=== PATIENT | male | born 1945 | race Caucasian/White ===

== ENCOUNTER → 2017-12-10 12:59 | Outpatient (CLI) | payer MEDICARE, SELFPAY ==
[2017-01-28 09:50] VITALS: BMI 29.3
[2017-11-07 14:19] VITALS: BP 144/70
--- NOTE | 2017-12-10 13:01 | CT_ITS ---
STUDY: CT CHEST WITHOUT CONTRAST REASON FOR EXAM: Male, 72 years old. Dyspnea. RADIATION DOSAGE (If Supplied By Facility): CTDIvol = ( 12.19 ) mGy, DLP = ( 414.11 ) mGycm TECHNIQUE: Transaxial imaging was performed without the administration of intravenous contrast material. Multiplanar coronal and sagittal images were reformatted. Individualized dose optimization techniques were used for this CT. COMPARISON: Comparison is made with prior examination dated May 09, 2017. FINDINGS: Stable increased markings in the left lung apex suggestive of scarring. Stable appearance of the spiculated soft tissue density in the posterior aspect of the left upper lobe adjacent to the suprahilar region with areas of bronchiectasis. This is in keeping with scarring. 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 Stable appearance of the soft tissue density with coarse calcifications in the right hilum and right infrahilar region. Stable increased markings in the right lower lobe suggestive of a mild degree of scarring. There is a new 1.1 cm slightly irregular nodule in the right lower lobe as seen on axial image 73. There are calcifications of the coronary arteries. Stable calcified mediastinal lymph nodes. Stable calcified bilateral hilar lymph nodes more prominent on the right side. Normal unenhanced pulmonary arteries. Normal aorta arch and descending thoracic aorta. There are multi-level degenerative changes of the thoracic spine. Hiatal hernia. CT/Chest without Contrast IMPRESSION: Stable examination except for a new 1.1 cm slightly irregular nodule in the right lower lobe as seen on axial image 73. Electronically Signed: Jered Parrish MD at 16:00 EST Tel [phone], Service support ,
--- NOTE | 2017-12-11 15:36 | PFTCOMP ---
COMPLETE PULMONARY FUNCTION TEST INTERPRETATION Brief HPI: Patient is a 72 year old male, currently under the care of myself, who presents to [facility] for complete pulmonary function tests secondary to diagnosis of abnormal CT. Respiratory therapist reports good effort and reproducible results. Interpretation: Forced expiration spirometry shows a moderately-severe large airways obstructive ventilatory defect with an FEV1 of 55 % predicted. There is no significant bronchodilator response by ATS criteria. Spirograms are of good quality and plateau slowly, indicating slowly emptying areas of the lungs. The respiratory flow volume loop shows decreased expiratory flow rates at all lung volumes consistent with airway obstruction. Lung volumes by body plethysmography show a normal total lung capacity at 5.29 L, 85 % predicted. All other lung volumes are within normal limits. Diffusion capacity by carbon monoxide is normal at 76 % predicted. The airway resistance is elevated. Compared to previous pulmonary function tests from 05/09/2017, there has been a significant change in total lung capacity and residual volume. Impression: Irreversible moderately severe obstructive ventilatory defect with worsening of lung volumes compared to previous study.
--- NOTE | 2017-12-11 15:39 | PFTCOMP_ITS ---
COMPLETE PULMONARY FUNCTION TEST INTERPRETATION Brief HPI: Patient is a 72 year old male, currently under the care of myself, who presents to [facility] for complete pulmonary function tests secondary to diagnosis of abnormal CT. Respiratory therapist reports good effort and reproducible results. Interpretation: Forced expiration spirometry shows a moderately-severe large airways obstructive ventilatory defect with an FEV1 of 55 % predicted. There is no significant bronchodilator response by ATS criteria. Spirograms are of good quality and plateau slowly, indicating slowly emptying areas of the lungs. The respiratory flow volume loop shows decreased expiratory flow rates at all lung volumes consistent with airway obstruction. Lung volumes by body plethysmography show a normal total lung capacity at 5.29 L , 85 % predicted. All other lung volumes are within normal limits. Diffusion capacity by carbon monoxide is normal at 76 % predicted. The airway resistance is elevated. Compared to previous pulmonary function tests from 05/09/2017, there has been a significant change in total lung capacity and residual volume. Impression: Irreversible moderately severe obstructive ventilatory defect with worsening of lung volumes compared to previous study.
== END ==
PROVIDERS: Family Provider Family Medicine; PCP Family Medicine; Visit Provider Nurse Practitioner Acute Care
DX: R91.8 Other nonspecific abnormal finding of lung field (principal); D86.0 Sarcoidosis of lung
CPT/HCPCS: 71250; 94060; 94726; 94729

== ENCOUNTER → 2018-06-10 07:15 | Outpatient (CLI) | payer MEDICARE, SELFPAY ==
[2017-01-28 09:50] VITALS: BMI 29.3
--- NOTE | 2018-06-10 07:17 | CT_ITS ---
STUDY: CT CHEST WITHOUT CONTRAST REASON FOR EXAM: Male, 72 years old. SARCOIDOSIS, NODULE RADIATION DOSAGE (If Supplied By Facility): CTDIvol = ( 12.59 ) mGy, DLP = ( 475.17 ) mGycm TECHNIQUE: Transaxial imaging was performed without the administration of intravenous contrast material. Individualized dose optimization techniques were used for this CT. COMPARISON: 01/07/2018 FINDINGS: The previously described right lower lobe nodule is smaller, now measuring 8 mm, down from 11 mm. There is stable right perihilar atelectasis and scarring extending into the right lower lobe. There is stable left upper lobe perihilar scarring and atelectasis. No new nodule is seen. No pleural effusion. Normal heart and pericardium. There are multiple stable calcified mediastinal and bihilar lymph nodes.. Normal unenhanced pulmonary arteries. Normal aorta arch and descending thoracic aorta. There are multi-level degenerative changes of the thoracic spine. The hiatal hernia is slightly smaller. Again seen is a right renal hypodensity, probably a cyst. CT/Chest without Contrast IMPRESSION: The previously described right lower lobe nodule is smaller. The hiatal hernia is slightly smaller. Other stable findings. Electronically Signed: Starr Harrison MD at 9:40 EDT , Service support ,
[2018-06-10 08:43] VITALS: PULSE 63; PULSE 75; PULSE 76; PULSE 78; O2SAT 95; O2SAT 97; O2SAT 98
--- NOTE | 2018-06-10 15:20 | WT_ITS ---
PSN 6 Minute Walk Test - 6 Minute Walk Test 6 Minute Walk Test: 6 Minute Walk Test PSN:6-Minute Walk Test Start: 06/10/18 08: 09 Freq: Status: Active Protocol: [id number].6MINW Document 06/10/18 08:43 SMB (Rec: 06/10/18 08:46 SMB [id number]) 6 Minute Walk Test Date Performed 06/10/18 Time Performed 08:25 Height 5 ft 9 in Weight: 83.007 kg Weight in Pounds 183.[address]: Jennifer Azevedo Assistive device used: None Pre-test Oxygen Delivery Method Room Air Pulse Ox (%) 98 Pulse Rate (60-100 beats/min) 63 1st minute Oxygen Delivery Method Room Air Pulse Ox (%) 98 Pulse Rate (60-100 beats/min) 75 2nd minute Oxygen Delivery Method Room Air Pulse Ox (%) 95 Pulse Rate (60-100 beats/min) 76 3rd minute Oxygen Delivery Method Room Air Pulse Ox (%) 98 Pulse Rate (60-100 beats/min) 75 4th minute Oxygen Delivery Method Room Air Pulse Ox (%) 98 Pulse Rate (60-100 beats/min) 76 5th minute Oxygen Delivery Method Room Air Pulse Ox (%) 97 Pulse Rate (60-100 beats/min) 76 6th minute Oxygen Delivery Method Room Air Pulse Ox (%) 98 Pulse Rate (60-100 beats/min) 78 Post-test Oxygen Delivery Method Room Air Pulse Ox (%) 98 Pulse Rate (60-100 beats/min) 76 Dyspnea Dhara Scale (0-10) 0.5 Exertion Dhara Scale (6-20) 12 Full Laps Walked 18 Partial Lap, Number of Tiles Walked 0 Total Distance Walked (ft) 1062 - Interpretation Interpretation: The patient was able to ambulate 1062 feet over the course of 6 minutes on room air with no assistive devices or breaks. The patient experienced no significant desaturation or tachycardia during testing. These findings are consistent with a normal exercise oximetry. - Recommendations Recommendations: No supplemental oxygen was indicated by this testing.
--- NOTE | 2018-06-10 15:33 | PFTCOMP ---
COMPLETE PULMONARY FUNCTION TEST INTERPRETATION Brief HPI: Patient is a 72 year old male, currently under the care of Jennifer Azevedo, who presents to [facility] for complete pulmonary function tests secondary to diagnosis of sarcoidosis. Respiratory therapist reports good effort and reproducible results. Interpretation: Forced expiration spirometry shows no moderate large airways obstructive ventilatory defect with an FEV1 of 60% predicted. There is no significant bronchodilator response by ATS criteria. Spirograms are of good quality and plateau slowly, indicating slowly emptying areas of the lungs. The respiratory flow volume loop shows decreased expiratory flow rates at high lung volumes consistent with small airways obstruction. Lung volumes by body plethysmography show a normal total lung capacity at 6.55 L, 105% predicted. All other lung volumes are within normal limits. Diffusion capacity by carbon monoxide is normal at 82% predicted. The airway resistance is elevated. Compared to previous pulmonary function tests from December 10, 2017, there has been a significant improvement in FEV1 and TLC by 13% and 24% respectively. Impression: Irreversible moderate large airways obstructive ventilatory defect with significant improvement compared to previous testing.
--- NOTE | 2018-06-10 15:36 | PFTCOMP_ITS ---
COMPLETE PULMONARY FUNCTION TEST INTERPRETATION Brief HPI: Patient is a 72 year old male, currently under the care of Jennifer Azevedo, who presents to [facility] for complete pulmonary function tests secondary to diagnosis of sarcoidosis. Respiratory therapist reports good effort and reproducible results. Interpretation: Forced expiration spirometry shows no moderate large airways obstructive ventilatory defect with an FEV1 of 60% predicted. There is no significant bronchodilator response by ATS criteria. Spirograms are of good quality and plateau slowly, indicating slowly emptying areas of the lungs. The respiratory flow volume loop shows decreased expiratory flow rates at high lung volumes consistent with small airways obstruction. Lung volumes by body plethysmography show a normal total lung capacity at 6.55 L , 105% predicted. All other lung volumes are within normal limits. Diffusion capacity by carbon monoxide is normal at 82% predicted. The airway resistance is elevated. Compared to previous pulmonary function tests from December 10, 2017, there has been a significant improvement in FEV1 and TLC by 13% and 24% respectively. Impression: Irreversible moderate large airways obstructive ventilatory defect with significant improvement compared to previous testing.
== END ==
PROVIDERS: Family Provider Family Medicine; PCP Family Medicine; Visit Provider Nurse Practitioner Acute Care
DX: D86.0 Sarcoidosis of lung (principal); R91.1 Solitary pulmonary nodule
CPT/HCPCS: 71250; 94060; 94618; 94726; 94729

== ENCOUNTER → 2018-12-02 10:01 | Outpatient (CLI) | payer MEDICARE, SELFPAY ==
[2017-01-28 09:50] VITALS: BMI 29.3
--- NOTE | 2018-12-02 14:14 | PFT ---
INTRODUCTION: The patient is a 73-year-old male that presents for pulmonary function studies secondary to a diagnosis of COPD. Respiratory therapy reports good patient effort. Bronchodilators were used during testing. INTERPRETATION: Forced expiration spirometry demonstrates the presence of a moderately severe large airways obstructive ventilatory defect. There was no significant response to aerosolized bronchodilators. Spirograms are of good quality and do not plateau indicating slow emptying of the lungs. Body plethysmography was performed and reveals lung volumes to be within normal limits. Diffusing capacity by single breath CO is also within normal limits. When compared to prior pulmonary function studies completed in June 2018, there has been a 23% improvement in DLCO. IMPRESSION: These pulmonary function studies demonstrate the presence of an irreversible moderately severe large airways obstructive ventilatory defect. Lung volumes and diffusing capacity are within normal limits.
== END ==
PROVIDERS: Family Provider Family Medicine; PCP Family Medicine; Referring Provider Internal Medicine Critical Care Medicine; Visit Provider Internal Medicine Critical Care Medicine
DX: D86.0 Sarcoidosis of lung (principal); J44.9 Chronic obstructive pulmonary disease, unspecified
CPT/HCPCS: 94060; 94726; 94729

== ENCOUNTER 2019-02-02 10:03 | Inpatient (IN) | payer MEDICARE, SELFPAY ==
[2017-01-28 09:50] VITALS: BMI 29.3
[2019-01-22 14:37] VITALS: BMI 27.4
[2019-02-02] VITALS (16 sets, daily range): BP systolic 110–164; BP diastolic 62–82; PULSE 53–79; RESP 14–18; TEMP 36.6–37.1; O2SAT 95–100; BMI 27.4; BMI 26.6
--- NOTE | 2019-02-02 10:19 | RAD_ITS ---
STUDY: X-RAY CHEST REASON FOR EXAM: Male, 73 years old. Chest pain TECHNIQUE: Single AP portable view of the chest. COMPARISON: 01/08/[address] chest dated 06/10/2018 FINDINGS: Decreased scarring in the left lung apex. The lungs are clear and expanded. There is no demonstrated pleural abnormality. Normal size heart. Normal mediastinum and willie. Normal visualized pulmonary arteries. Normal visualized aortic arch and descending thoracic aorta. Normal visualized thoracic spine. Normal visualized ribs, clavicles, and shoulders. There is no demonstrated abnormality of the visualized soft tissue structures of the upper abdomen. RAD/Chest 1 View (Portable) IMPRESSION: No acute finding Electronically Signed: Aubrey Mcginnis DO at 11:13 EDT Tel , Service support ,
--- NOTE | 2019-02-02 10:19 | EKG12_ITS ---
Test Reason : CP Blood Pressure : / mmHG Vent. Rate : 068 BPM Atrial Rate : 068 BPM P-R Int : 148 ms QRS Dur : 140 ms QT Int : 384 ms P-R-T Axes : 018 061 065 degrees QTc Int : 408 ms Normal sinus rhythm Right bundle branch block Anterolateral infarct , age undetermined Abnormal ECG Confirmed by SYLVIA MARTINEZ, LEANDRO ([id number]), clinical editor ALEXANDER DELGADO ([id number]) on 02/03/2019 1:33:30 PM Referred By: MEGGAN Confirmed By:LEANDRO WARD MD
[2019-02-02] MEDS: Aspirin 81 MG TAB.CHEW 324 MG PO (10:26)
[2019-02-02 10:57] LABS: Absolute Lymphocyte Count 0.71 X10^3/ul (0.83-4.51); Absolute Neutrophil Count 7.2 X10^3/uL (2.0-7.7); Basophil# 0.02 X10^3/uL; Basophil% 0.2 % (0-1); Eosinophil# 0.13 X10^3/uL; Eosinophils% 1.5 % (0-5); Hematocrit 37.6 % (40-54); Hemoglobin 12.5 g/dl (13.0-16.5); Lymphocyte # 0.71 X10^3/ul (4.0); Lymphocyte % 8.1 % (19-41); Mean Corp Hgb Conc 33.2 g/gl (32-36); Mean Corpuscular Hgb 31.6 pg (27.0-32.0); Mean Corpuscular Volume 94.9 fL (80-94); Mean Platelet Vol. 10.2 fl (6.2-12.0); Neutrophil # 7.17 X10^3/uL (2.7-7.7); Neutrophil % 82.1 % (47-70); Platelet Count 242 K/mm3 (150-450); RBC Distribution Width CV 13.9 % (11.6-14.6); RBC Distribution Width SD 47.5 fl (35.1-43.9); Red Blood Count 3.96 M/mm3 (4.6-6.2); White Blood Count 8.7 K/mm3 (4.4-11.0)
[2019-02-02 10:58] LABS: POSITIVE COUNT NO; POSITIVE DIFFERENTIAL NO; POSITIVE MORPHOLOGY NO
--- NOTE | 2019-02-02 11:03 | ED.DCSUM_ITS ---
- ER Visit Summary Date of Service: 02/02/19 Chief Complaint: Chest pain History of Present Illness: The patient is a 73 M who presents to the emergency department with chest pain. He describes an aching sensation in the anterior aspect of his chest going into the bilateral biceps region. It is not reprod ucible. He notes no change in his chronic dyspnea. No nausea. He does note he developed diarrhea last night. Patient has a history of coronary artery disease having had stents placed (bare-metal) to the RCA in 2014. 2016 due to a failed stress test and leg swelling he underwent heart catheterization and received stents to the mid and proximal LAD. He saw cardiology in December and was doing well. Since then he had a Hemoccult test that was positive and is scheduled for a colonoscopy this week. As part of the preparation for that he went off of his Plavix beginning Saturday. Physical Examination: Afebrile vital signs stable Gen: Well-nourished well-developed Head: Normocephalic atraumatic Eyes: Perrl EOMI ENT: TMs clear no rhinorrhea moist mucous membranes hard of hearing Neck: Supple no lymphadenopathy no JVD nontender CVS: Regular rate rhythm no murmurs normal S1-S2 Respiratory: No distress clear to auscultation bilaterally chest nontender Abdomen: Soft nontender nondistended normal bowel sounds no masses Back: Nontender Extremity: Nontender no edema Skin: Normal color no rash Neuro: alert orientated ?3 CN II-XII intact normal strength sensation reflexes gait cerebellar Psych: Normal affect normal mood Test Results: EKG demonstrates a sinus rhythm at a rate of 68 with a right bundle branch block. There are some anterior changes specifically of the T waves I do not believe there is any elevation that meet STEMI criteria. Hemoglobin 12.5. Troponin 8.7. Chest x-ray negative. Emergency Department Course and Treatment: Patient received aspirin as well as nitroglycerin. He rated his pain going from a 3-01. Repeat EKG does not show significant changes. I spoke with Dr. Olson. We will give a dose of Lovenox and 300 mg of Plavix. He will be down to see the patient. Impression: 1. Non-ST segment elevated myocardial infarction 2. Acute coronary syndrome This note was generated with [employer] dictation software. It may contain incorrect words, spelling, and punctuation that were not noted in review of the chart prior to signing ED Disposition - Plan for ED Patient: Referrals: Sarthak Mantilla MD [Primary Care Provider] -
[2019-02-02 11:24] LABS: Anion Gap 4 (5-15); BUN 26 mg/dL (7-18); BUN/Creat Ratio 21.5 RATIO (10-20); Calcium,Total 8.8 mg/dL (8.5-10.1); Chloride 106 mmol/L (98-107); Creatinine, Serum 1.21 mg/dL (0.70-1.30); EST Glomerular Filtration Rate 63 mL/min (>60); Est Glom Filt Rate - Afr Amer 76 mL/min (>60); Estimated Creatinine Clearance 55.18 ml/min; Glucose 199 mg/dL (74-106); Potassium 4.5 mmol/L (3.5-5.1); Sodium Level 135 mmol/L (136-145)
--- NOTE | 2019-02-02 11:34 | ED.RN ---
trop 8.[address] lab[address] dr villaseñor aware
--- NOTE | 2019-02-02 11:38 | EKG12_ITS ---
Test Reason : REPEAT FOR +TROPONIN Blood Pressure : / mmHG Vent. Rate : 063 BPM Atrial Rate : 063 BPM P-R Int : 154 ms QRS Dur : 138 ms QT Int : 404 ms P-R-T Axes : 045 090 076 degrees QTc Int : 413 ms Normal sinus rhythm Right bundle branch block Anterolateral infarct , age undetermined Abnormal ECG Confirmed by SYLVIA MARTINEZ, LEANDRO ([id number]), fan mail editor ALEXANDER DELGADO ([id number]) on 02/03/2019 1:33:48 PM Referred By: MEGGAN Confirmed By:LEANDRO WARD MD
[2019-02-02] MEDS: Clopidogrel Bisulfate 300 MG Tablet PO (12:06)
[2019-02-02] MEDS: Enoxaparin 100 MG/ML Syringe 90 MG SC (12:06)
--- NOTE | 2019-02-02 14:17 | PCM.HP.STD ---
Problem List (1) NSTEMI, initial episode of care Status: Acute History of Present Illness Date of Admission: 02/02/19 Chief Complaint: chest pain The patient is a 73 year old M presents with chest pain. Chest pain is described as a right-sided but also midsternal and then radiated down both arms. This started at 2200 on January 31. Patient was just feeling weak as well. Patient's had a history of other stents but is never had chest pain like this before. Patient presented to the emergency room and was noted to have a pattern of 8.74. He received treatment with nitroglycerin alleviated his chest pain. Dr. Olson, of cardiology was contacted and saw the patient in the emergency room. Patient received aspirin, loaded with Plavix and treated with therapeutic Lovenox. Patient had stopped his Plavix several days ago for a colonoscopy that he was to have on the third. [] Past Medical History Past Medical History (Chronic Problems): Chronic Problems (Last Reviewed 01/29/19 @ 06:27 by Aman Luke MD) Essential hypertension (Chronic) Lung nodule, solitary (Chronic) 1.1 cm RLL image 73 shrinking in size to 0.8 cm in June 2018 Sarcoidosis of lung (Chronic) COPD (chronic obstructive pulmonary disease) (Chronic) GERD (gastroesophageal reflux disease) (Chronic) Sarcoidosis of lung (Chronic) Decrease methotrexate to 6 tablets weekly (6 x 2.5 mg = 15 mg) Right bundle branch block (Chronic) Hyperlipidemia (Chronic) Atherosclerosis of coronary artery of [place] heart without angina pectoris (Chronic) PCI- TK- Prox and Mid LAD 01/16/2017 PCI-BMS-Mid and Distal RCA 03/21/2015 History of coronary artery stent placement (Chronic 01/16/17) 01/16/2017 03/21/2015 Medical History: Medical History (Last Reviewed 02/02/19 @ 14:19 by Daquan Shirley DO) Essential hypertension (Chronic) I10 COPD (chronic obstructive pulmonary disease) (Chronic) J44.9 GERD (gastroesophageal reflux disease) (Chronic) K21.9 Sarcoidosis of lung (Chronic) D86.0 Decrease methotrexate to 6 tablets weekly (6 x 2.5 mg = 15 mg) Right bundle branch block (Chronic) I45.10 Hyperlipidemia (Chronic) E78.5 Atherosclerosis of coronary artery of [place] heart without angina pectoris (Chronic) I25.10 PCI- TK- Prox and Mid LAD 01/16/2017 PCI-BMS-Mid and Distal RCA 03/21/2015 Dupuytren's contracture of left hand M72.0 Dupuytren's contracture of right hand M72.0 Positive colorectal cancer screening using Cologuard test R19.5 nonhealing surgical wound left palm Abnormal CT scan, chest R93.8 Hearing loss H91.90 Localized edema R60.0 Shortness of breath R06.02 URI (upper respiratory infection) J06.9 Hypertension (Inactive) I10 Allergies No Known Allergies Allergy (Verified 02/02/19 10:04) Home Medications: Ambulatory Orders Medication Instructions Recorded Nitroglycerin [Nitrostat] 0.4 mg SUBLINGUAL Q5M PRN 12/15/15 Omeprazole [Prilosec] 20 mg PO DAILY 12/15/15 Potassium Chloride [K-Dur] 10 meq PO DAILY 12/15/15 aspirin 81 mg tablet,delayed 81 mg PO QDAY 11/06/17 release albuterol sulfate HFA 90 1 - 2 puff INHALATION Q4H PRN PRN 03/17/18 mcg/actuation aerosol inhaler #18 g Atorvastatin Calcium [Lipitor] 80 mg PO DAILY 02/02/19 Clopidogrel Bisulfate [Plavix] 75 mg PO DAILY 02/02/19 Fluticasone/Salmeterol [Advair 1 puff INHALATION BID 02/02/19 250-50 Diskus] Folic Acid 1 mg PO DAILY 02/02/19 Lisinopril/Hydrochlorothiazide 1 tab PO DAILY 02/02/19 [Zestoretic 20-25 mg Tablet] Methotrexate 15 mg PO TH 02/02/19 Metoprolol Tartrate [Lopressor 12.5 mg PO BID 02/02/19 (beta hilario)] Multivit-Mins/Iron/Folic/Lycop 1 tab PO DAILY 02/02/19 [Centrum Men's Tablet] Surgical History: Surgical History (Last Reviewed 02/02/19 @ 14:19 by Daquan Shirley DO) History of coronary artery stent placement (Chronic) Onset Date: 01/16/17 Z95.5 01/16/2017 03/21/2015 Excision Dupuytren's Contracture Left Hand History of lung biopsy Z98.890 H/O hernia repair Z98.890, Z87.19 Smoking Status: Never smoker - *Family History Maternal Family History: Family History (Last Reviewed 02/02/19 @ 14:20 by Daquan Shirley DO) Father CAD (coronary artery disease) Mother CAD (coronary artery disease) Review of Systems Constitutional: Reports: Weakness. Denies: Anorexia, Chills, Fever, Night Sweats Eyes: Denies: Blurred vision, Double vision HEENT: Denies: Head Aches, Sinus Congestion, Sinus Drainage Cardiovascular: Reports: Chest Pain. Denies: Edema Respiratory: Denies: Cough, Shortness of breath at rest, Sputum production Gastrointestinal: Denies: Abdominal Pain, Nausea, Vomiting Genitourinary: Denies: Dysuria Musculoskeletal: Reports: Arm Pain, Muscle pain Skin: Denies: Dryness, Jaundice Neurological: Denies: Numbness, Tingling, Focal weakness Psychiatric: Denies: Anxiety Hematologic/ Lymphatic: Denies: Hx of blood clot Comment: A 10 point review of systems were negative except as mentioned in the history of present illness and the other review of systems. VTE Information - Inpt Only VTE Present on Admission: No Patient Problems: Active and Suspected Problems (Last Reviewed 01/29/19 @ 06:27 by Aman Luke MD) NSTEMI, initial episode of care (Acute) - Physical Exam General: Alert, Cooperative, No apparent distress HEENT: Atraumatic, Normocephalic Oral: Moist Mucosa, No Gingival or Mucosal Lesions/ Ulcerations Neck: No Nodes, Thyroid Normal Size and Texture Lungs: Clear to auscultation, Normal air movement, No rhonchi, No wheeze Cardiovascular: Regular rate, Regular Rhythm, Normal S1, Normal S2, No murmurs Abdomen: Bowel Sounds Present, Soft, Non Tender, Non-Distended, No Hepato-splenomegaly Extremities: No edema, No Calf Tenderness Skin: No rashes, No breakdown, - - Numerous skin lesions on his face and back and chest consistent with history of extensive sun exposure. Musculoskeletal: No Tenderness to Palpation of Joints or Extremities, No Muscle Wasting Neurological: Neuro grossly intact, Coordination normal Psych/Mental Status: Normal Affect, Appropriate Vital Signs Temp Pulse Resp BP Pulse Ox 37.1 C 78 14 143/81 H 99 02/02/19 10:04 02/02/19 14:02 02/02/19 14:02 02/02/19 14:02 02/02/19 14:02 Oxygen Delivery Method Room Air Weight: 84.3 kg Body Mass Index (BMI) 27.4 Laboratory Tests Past 24 Hrs 02/02/19 02/02/19 10:45 10:45 WBC 8.7 RBC 3.96 L Hgb 12.5 L Hct 37.6 L MCV 94.9 H MCH 31.6 MCHC 33.2 RDW 13.9 RDW Differential 47.5 H Plt Count 242 MPV 10.2 Immature Gran % (Auto) 0.100 Neut % (Auto) 82.1 H Lymph % (Auto) 8.1 L Perkins % (Auto) 8.0 Eos % (Auto) 1.5 Baso % (Auto) 0.2 Absolute Neuts (auto) 7.2 Absolute Lymphs (auto) 0.71 L Total Counted Not Reportable Sodium 135 L Potassium 4.5 Chloride 106 Carbon Dioxide 25.0 Anion Gap 4 L BUN 26 H Creatinine 1.21 Estim Creat Clear Calc 55.18 Est GFR (MDRD) Af Amer 76 Est GFR (MDRD) Non-Af 63 BUN/Creatinine Ratio 21.5 H Glucose 199 H Calcium 8.8 Troponin I 8.740 H* Clinical Impression(s) from Imaging Studies Chest X-Ray 02/02/19 10:19 IMPRESSION: No acute finding Electronically Signed: Aubrey Mcginnis DO at 11:13 EDT Tel , Service support , EKG reviewed and showed normal sinus rhythm with a right bundle branch block. This is unchanged from January 17, 2017. Assessment/Plan All Active Problems (Last Reviewed 01/29/19 @ 06:27 by Aman Luke MD) NSTEMI, initial episode of care (Acute) Stage 2 moderate COPD by GOLD classification (Acute) Pneumonia (Acute) 1. Non-STEMI Symptomatically improved after receiving nitroglycerin Seen by cardiology in the emergency room. Plan is for a left heart catheterization on the second. Patient was loaded with Plavix in the emergency room. Patient had stopped Plavix due to an upcoming colonoscopy. We will continue with Plavix as well as aspirin for now. Patient already on high intensity statin which will be continued. Continue with therapeutic Lovenox for now. 2. Heme positive stools Has been known since the fall and the patient eventually agreed to proceeding with a colonoscopy. Colonoscopy was planned for the third but that can be held for the time being given the upcoming heart catheterization. 3. Solar lentigo These may be benign lesions patient does have one on his face that has been present there for some time and was told it was precancerous. I have advised the patient and his to follow-up with dermatology to have formal examination. Patient certainly at high risk for skin cancers given his history of sun exposure. 4. DVT prophylaxis: Patient is anticoagulated. Code Visit Inpatient E&M: 97048 Init Hosp L3
--- NOTE | 2019-02-02 14:22 | HP.PCM_ITS ---
Problem List (1) NSTEMI, initial episode of care Status: Acute History of Present Illness Date of Admission: 02/02/19 Chief Complaint: chest pain The patient is a 73 year old M presents with chest pain. Chest pain is described as a right-sided but also midsternal and then radiated down both arms. This started at 2200 on January 31. Patient was just feeling weak as well. Patient's had a history of other stents but is never had chest pain like this be fore. Patient presented to the emergency room and was noted to have a pattern of 8.74. He received treatment with nitroglycerin alleviated his chest pain. Dr. Olson, of cardiology was contacted and saw the patient in the emergency room. Patient received aspirin, loaded with Plavix and treated with therapeutic Lovenox. Patient had stopped his Plavix several days ago for a colonoscopy that he was to have on the third. [] Past Medical History Past Medical History (Chronic Problems): Chronic Problems (Last Reviewed 01/29/19 @ 06:27 by Aman Luke MD) Essential hypertension (Chronic) Lung nodule, solitary (Chronic) 1.1 cm RLL image 73 shrinking in size to 0.8 cm in June 2018 Sarcoidosis of lung (Chronic) COPD (chronic obstructive pulmonary disease) (Chronic) GERD (gastroesophageal reflux disease) (Chronic) Sarcoidosis of lung (Chronic) Decrease methotrexate to 6 tablets weekly (6 x 2.5 mg = 15 mg) Right bundle branch block (Chronic) Hyperlipidemia (Chronic) Atherosclerosis of coronary artery of [place] heart without angina pectoris (Chronic) PCI- TK- Prox and Mid LAD 01/16/2017 PCI-BMS-Mid and Distal RCA 03/21/2015 History of coronary artery stent placement (Chronic 01/16/17) 01/16/2017 03/21/2015 Medical History: Medical History (Last Reviewed 02/02/19 @ 14:19 by Daquan Shirley DO) Essential hypertension (Chronic) I10 COPD (chronic obstructive pulmonary disease) (Chronic) J44.9 GERD (gastroesophageal reflux disease) (Chronic) K21.9 Sarcoidosis of lung (Chronic) D86.0 Decrease methotrexate to 6 tablets weekly (6 x 2.5 mg = 15 mg) Right bundle branch block (Chronic) I45.10 Hyperlipidemia (Chronic) E78.5 Atherosclerosis of coronary artery of [place] heart without angina pectoris (Chronic) I25.10 PCI- TK- Prox and Mid LAD 01/16/2017 PCI-BMS-Mid and Distal RCA 03/21/2015 Dupuytren's contracture of left hand M72.0 Dupuytren's contracture of right hand M72.0 Positive colorectal cancer screening using Cologuard test R19.5 nonhealing surgical wound left palm Abnormal CT scan, chest R93.8 Hearing loss H91.90 Localized edema R60.0 Shortness of breath R06.02 URI (upper respiratory infection) J06.9 Hypertension (Inactive) I10 Allergies No Known Allergies Allergy (Verified 02/02/19 10:04) Home Medications: Ambulatory Orders Medication Instructions Recorded Nitroglycerin [Nitrostat] 0.4 mg SUBLINGUAL Q5M PRN 12/15/15 Omeprazole [Prilosec] 20 mg PO DAILY 12/15/15 Potassium Chloride [K-Dur] 10 meq PO DAILY 12/15/15 aspirin 81 mg tablet,delayed 81 mg PO QDAY 11/06/17 release albuterol sulfate HFA 90 1 - 2 puff INHALATION Q4H PRN PRN 03/17/18 mcg/actuation aerosol inhaler #18 g Atorvastatin Calcium [Lipitor] 80 mg PO DAILY 02/02/19 Clopidogrel Bisulfate [Plavix] 75 mg PO DAILY 02/02/19 Fluticasone/Salmeterol [Advair 1 puff INHALATION BID 02/02/19 250-50 Diskus] Folic Acid 1 mg PO DAILY 02/02/19 Lisinopril/Hydrochlorothiazide 1 tab PO DAILY 02/02/19 [Zestoretic 20-25 mg Tablet] Methotrexate 15 mg PO TH 02/02/19 Metoprolol Tartrate [Lopressor 12.5 mg PO BID 02/02/19 (beta hilario)] Multivit-Mins/Iron/Folic/Lycop 1 tab PO DAILY 02/02/19 [Centrum Men's Tablet] Surgical History: Surgical History (Last Reviewed 02/02/19 @ 14:19 by Daquan Shirley DO) History of coronary artery stent placement (Chronic) Onset Date: 01/16/17 Z95.5 01/16/2017 03/21/2015 Excision Dupuytren's Contracture Left Hand History of lung biopsy Z98.890 H/O hernia repair Z98.890, Z87.19 Smoking Status: Never smoker - *Family History Maternal Family History: Family History (Last Reviewed 02/02/19 @ 14:20 by Daquan Shirley DO) Father CAD (coronary artery disease) Mother CAD (coronary artery disease) Review of Systems Constitutional: Reports: Weakness. Denies: Anorexia, Chills, Fever, Night Sweats Eyes: Denies: Blurred vision, Double vision HEENT: Denies: Head Aches, Sinus Congestion, Sinus Drainage Cardiovascular: Reports: Chest Pain. Denies: Edema Respiratory: Denies: Cough, Shortness of breath at rest, Sputum production Gastrointestinal: Denies: Abdominal Pain, Nausea, Vomiting Genitourinary: Denies: Dysuria Musculoskeletal: Reports: Arm Pain, Muscle pain Skin: Denies: Dryness, Jaundice Neurological: Denies: Numbness, Tingling, Focal weakness Psychiatric: Denies: Anxiety Hematologic/ Lymphatic: Denies: Hx of blood clot Comment: A 10 point review of systems were negative except as mentioned in the history of present illness and the other review of systems. VTE Information - Inpt Only VTE Present on Admission: No Patient Problems: Active and Suspected Problems (Last Reviewed 01/29/19 @ 06:27 by Aman Luke MD) NSTEMI, initial episode of care (Acute) - Physical Exam General: Alert, Cooperative, No apparent distress HEENT: Atraumatic, Normocephalic Oral: Moist Mucosa, No Gingival or Mucosal Lesions/ Ulcerations Neck: No Nodes, Thyroid Normal Size and Texture Lungs: Clear to auscultation, Normal air movement, No rhonchi, No wheeze Cardiovascular: Regular rate, Regular Rhythm, Normal S1, Normal S2, No murmurs Abdomen: Bowel Sounds Present, Soft, Non Tender, Non-Distended, No Hepato- splenomegaly Extremities: No edema, No Calf Tenderness Skin: No rashes, No breakdown, - - Numerous skin lesions on his face and back and chest consistent with history of extensive sun exposure. Musculoskeletal: No Tenderness to Palpation of Joints or Extremities, No Muscle Wasting Neurological: Neuro grossly intact, Coordination normal Psych/Mental Status: Normal Affect, Appropriate Vital Signs Temp Pulse Resp BP Pulse Ox 37.1 C 78 14 143/81 H 99 02/02/19 10:04 02/02/19 14:02 02/02/19 14:02 02/02/19 14:02 02/02/19 14:02 Oxygen Delivery Method Room Air Weight: 84.3 kg Body Mass Index (BMI) 27.4 Laboratory Tests Past 24 Hrs 02/02/19 02/02/19 10:45 10:45 WBC 8.7 RBC 3.96 L Hgb 12.5 L Hct 37.6 L MCV 94.9 H MCH 31.6 MCHC 33.2 RDW 13.9 RDW Differential 47.5 H Plt Count 242 MPV 10.2 Immature Gran % (Auto) 0.100 Neut % (Auto) 82.1 H Lymph % (Auto) 8.1 L Petroleum % (Auto) 8.0 Eos % (Auto) 1.5 Baso % (Auto) 0.2 Absolute Neuts (auto) 7.2 Absolute Lymphs (auto) 0.71 L Total Counted Not Reportable Sodium 135 L Potassium 4.5 Chloride 106 Carbon Dioxide 25.0 Anion Gap 4 L BUN 26 H Creatinine 1.21 Estim Creat Clear Calc 55.18 Est GFR (MDRD) Af Amer 76 Est GFR (MDRD) Non-Af 63 BUN/Creatinine Ratio 21.5 H Glucose 199 H Calcium 8.8 Troponin I 8.740 H* Clinical Impression(s) from Imaging Studies Chest X-Ray 02/02/19 10:19 IMPRESSION: No acute finding Electronically Signed: Aubrey Mcginnis DO at 11:13 EDT Tel , Service support , EKG reviewed and showed normal sinus rhythm with a right bundle branch block. This is unchanged from January 17, 2017. Assessment/Plan All Active Problems (Last Reviewed 01/29/19 @ 06:27 by Aman Luke MD) NSTEMI, initial episode of care (Acute) Stage 2 moderate COPD by GOLD classification (Acute) Pneumonia (Acute) 1. Non-STEMI * Symptomatically improved after receiving nitroglycerin * Seen by cardiology in the emergency room. Plan is for a left heart catheterization on the second. * Patient was loaded with Plavix in the emergency room. Patient had stopped Plavix due to an upcoming colonoscopy. We will continue with Plavix as well as aspirin for now. Patient already on high intensity statin which will be continued. * Continue with therapeutic Lovenox for now. 2. Heme positive stools * Has been known since the fall and the patient eventually agreed to proceeding with a colonoscopy. Colonoscopy was planned for the third but that can be held for the time being given the upcoming heart catheterization. 3. Solar lentigo * These may be benign lesions patient does have one on his face that has been present there for some time and was told it was precancerous. I have advised the patient and his to follow-up with dermatology to have formal examination. Patient certainly at high risk for skin cancers given his history of sun exposure. 4. DVT prophylaxis: Patient is anticoagulated. Code Visit Inpatient E&M: 86991 Init Hosp L3
--- NOTE | 2019-02-02 14:40 | CASEMGMT ---
According to the [facility] website, the following are in-network tertiary facilities: [facility], [facility], [facility], and [facility]. Miky CRAVEN CM
--- NOTE | 2019-02-02 14:45 | ECHOCS_ITS ---
Reason For Study: NSTEMI Procedure This was a 2D Doppler, Color Flow transthoracic echocardiogram. Contrast injection was performed. Exam performed portable in patient room. Left Ventricle Normal LV size. The estimated ejection fraction is 40 %. Mild to moderate segmental systolic dysfunction (see wall motion). Stage 1 diastolic dysfunction. [place] : Hypokinetic. Mid-Anterior : Hypokinetic. The rest of the wall segments are normal. Right Ventricle Normal RV size. Normal systolic function. Atria Normal left atrium. Normal right atrium. Mitral Valve Normal mitral valve. Mild (1+) eccentric mitral valve insufficiency. Tricuspid Valve Normal tricuspid valve. Mild (1+) tricuspid valve insufficiency. Pulmonary artery systolic pressure is 40 mmHg. Aortic Valve Trisinus/trileaflet aortic valve. Normal aortic valve. Trivial aortic valve insufficiency. Pulmonic Valve Normal pulmonic valve. Great Vessels Normal aortic root. The pulmonary artery is normal size. Normal inferior vena cava. Pericardium/Pleural No pericardial effusion. Medication Definity0.3ml given slow IV push to enhance endocardial definition. MMode/2D Measurements & Calculations LVIDd: 4.8 cm IVSd: 1.1 cm Ao root diam: 3.1 cm LVIDs: 2.7 cm LVPWd: 0.90 cm RVDd: 4.5 cm FS: 44.0 % LAV(MOD-bp): 47.8 ml LVAd ap4: 35.3 cm2 SV(MOD-sp4): 62.9 ml LAV(MOD-bp) Indexed: 24.2 ml/m2 EDV(MOD-sp4): 111.2 ml LAV(MOD-sp2): 38.6 ml EDV(sp4-el): 117.4 ml LAV(MOD-sp4): 53.4 ml LVAs ap4: 22.1 cm2 ESV(MOD-sp4): 48.3 ml ESV(sp4-el): 50.3 ml EF(MOD-sp4): 56.5 % EF(sp4-el): 57.2 % SV(sp4-el): 67.1 ml LA A4 area: 17.7 cm2 LA dimension(2D): 4.2 cm RA A4 area: 15.1 cm2 Doppler Measurements & Calculations MV E max andrew: 64.2 cm/sec Lat Peak E' Andrew: 6.3 cm/sec Med Peak E' Andrew: 5.1 cm/sec MV A max andrew: 87.9 cm/sec E/E' lat: 10.1 E/E' med: 12.6 MV E/A: 0.73 Ao V2 max: 157.3 cm/sec LV V1 max: 110.2 cm/sec PA V2 max: 96.6 cm/sec Ao max P.9 mmHg LV V1 max P.9 mmHg Ao V2 mean: 107.9 cm/sec Ao mean P.2 mmHg Ao V2 VTI: 34.1 cm TR max andrew: 302.9 cm/sec TR max P.7 mmHg Interpretation Summary Normal LV size. The estimated ejection fraction is 40 %. Mild to moderate segmental systolic dysfunction (see wall motion). Stage 1 diastolic dysfunction. Mild (1+) tricuspid valve insufficiency. Pulmonary artery systolic pressure is 40 mmHg. Mid-Anterior : Hypokinetic [place] : Hypokinetic. Ordering Physician: Daquan Shirley Referring Physician: Sarthak Mantilla Performed By: Ana Maria Pepper, DARYL, RVT
--- NOTE | 2019-02-02 15:42 | PCM.CONS.C ---
Reason for Consult Date of Consultation: 02/02/19 Reason for Consultation: Chest pain and abnormal cardiac enzymes History of Present Illness: Mr Copeland is a very pleasant 73-year-old nondiabetic gentleman, who presented to the emergency room complaining of right-sided chest discomfort which started yesterday. Of note was the fact that he was due to undergo a routine screening colonoscopy and he was asked to discontinue his Plavix which he did a few days ago. He was 1st diagnosed with sarcoidosis in 2009, with a history of hypertension, hypercholesterolemia, coronary artery disease status post angioplasty and bare-metal stenting to his [facility] and [facility] on 03/21/15. At that time he was found to have 2 critical lesions in his mid and distal right coronary artery. He received a 4.0X 28 bare-metal stent to the distal RCA, followed upstream of the 5.0X 13 MultiLink ultra bare-metal stent to the mid RCA. He was also found to have a 70% mid LAD and an 80% proximal LAD stenosis and a small 2.25 mm vessel. This was evaluated with a stress test done in April 2015 and found no appreciable ischemia. His presentation symptoms at that time were dyspnea on exertion.He reports that his dyspnea on exertion improved but never completely went away. He is also had worsening lower extremity edema as well. He underwent a stress echocardiogram on 12/27/16 but had poor exercise capacity, and markedly elevated blood pressure. Test was terminated due to dyspnea. His dyspnea is similar to his dyspnea prior to his angioplasty. Patient then underwent successful angioplasty and stenting to his LAD in January 2017.Patient underwent a repeat modified Salty treadmill echocardiogram on 11/27/17 which was negative for inducible ischemia. He then underwent pulmonary function test on 12/11/17 which demonstrated a reversible moderately to severe obstructive disease consistent with COPD. Patient has recently gone back to work and feels much better and is much happier. His shortness of breath is actually improved. He still had mild chest discomfort was given sublingual nitroglycerin with improvement in anticipation of the above. His EKG demonstrated no acute changes. He however had a troponin blood test which was noted to be 8. Was called for further evaluation and management Past Medical History Allergies/Adverse Reactions: Allergies No Known Allergies Allergy (Verified 02/02/19 10:04) Home Medications: Ambulatory Orders Medication Instructions Recorded Nitroglycerin [Nitrostat] 0.4 mg SUBLINGUAL Q5M PRN 12/15/15 Omeprazole [Prilosec] 20 mg PO DAILY 12/15/15 Potassium Chloride [K-Dur] 10 meq PO DAILY 12/15/15 aspirin 81 mg tablet,delayed 81 mg PO DAILY 11/06/17 release albuterol sulfate HFA 90 1 - 2 puff INHALATION Q4H PRN PRN 03/17/18 mcg/actuation aerosol inhaler #18 g Atorvastatin Calcium [Lipitor] 80 mg PO DAILY 02/02/19 Clopidogrel Bisulfate [Plavix] 75 mg PO DAILY 02/02/19 Fluticasone/Salmeterol [Advair 1 puff INHALATION BID 02/02/19 250-50 Diskus] Folic Acid 1 mg PO DAILY 02/02/19 Lisinopril/Hydrochlorothiazide 1 tab PO DAILY 02/02/19 [Zestoretic 20-25 mg Tablet] Methotrexate 15 mg PO TH 02/02/19 Metoprolol Tartrate [Lopressor 12.5 mg PO BID 02/02/19 (beta hilario)] Multivit-Mins/Iron/Folic/Lycop 1 tab PO DAILY 02/02/19 [Centrum Men's Tablet] Past Medical History (Chronic Problems): Chronic Problems (Last Reviewed 02/02/19 @ 14:19 by Daquan Shirley DO) Essential hypertension (Chronic) Lung nodule, solitary (Chronic) 1.1 cm RLL image 73 shrinking in size to 0.8 cm in June 2018 Sarcoidosis of lung (Chronic) COPD (chronic obstructive pulmonary disease) (Chronic) GERD (gastroesophageal reflux disease) (Chronic) Sarcoidosis of lung (Chronic) Decrease methotrexate to 6 tablets weekly (6 x 2.5 mg = 15 mg) Right bundle branch block (Chronic) Hyperlipidemia (Chronic) Atherosclerosis of coronary artery of cheesh-na heart without angina pectoris (Chronic) PCI- TK- Prox and Mid LAD 01/16/2017 PCI-BMS-Mid and Distal RCA 03/21/2015 History of coronary artery stent placement (Chronic 01/16/17) 01/16/2017 03/21/2015 - *Family History Maternal Family History: Family History (Last Reviewed 02/02/19 @ 14:20 by Daquan Shirley DO) Father CAD (coronary artery disease) Mother CAD (coronary artery disease) Smoking Status: Never smoker Alcohol: None Drugs: None Review of Systems - Review of Systems General: Denies: Fever, Night Sweats, Fatigue HEENT: Denies: Vision Change Cardiovascular: Reports: Chest Discomfort, Chest Discomfort at Rest. Denies: Shortness of Breath, Orthopnea, PND, Peripheral Edema, Palpitations, Lightheadedness, Dizziness, Near Syncope, Syncope Respiratory: Denies: Cough, Sputum Production, Hemoptysis Gastrointestinal: Denies: Hematemesis, Hematochezia, Melena Genitourinary: Denies: Dysuria, Hematuria Skin: Denies: Rash Neurological: Denies: Dizziness Psychiatric: Denies: Anxiety Endocrine: Denies: Heat Intolerance Hematologic/ Lymphatic: Denies: Anemia Subjectve: Pleasant gentleman in no apparent distress Objective: Vital Signs Temp Pulse Resp BP Pulse Ox 98 F 64 16 110/63 100 02/02/19 15:18 02/02/19 15:18 02/02/19 15:18 02/02/19 15:18 02/02/19 15:18 Oxygen Delivery Method Room Air Weight: 180 lb 13.313 oz Body Mass Index (BMI) 26.6 General: Awake, Alert, Oriented x 3 HEENT: PERRL, EOMI, Sclera Non Icteric Neck: Supple, Good ROM, No Lymph Node Enlargement Lungs: Clear to auscultation Cardiovascular: Regular Rhythm, Normal S1, Normal S2, No Murmurs, No Rubs, No Gallops Vascular: No Carotid Bruits, Normal Femoral Pulses, Normal Radial Pulses, Normal Dorsalis Pedal Pulse, Normal Posterior Tibial Pulses Abdomen: Bowel Sounds Present, Soft, Non Tender, No HSM, No Organomegaly Extremities: No Cyanosis, No Clubbing, No edema Musculoskeletal: No Erythema Skin: No Rashes Lymphatic: No Lymph Node Enlargement Neurological: No Focal Motor or Sensory Deficit Psych/Mental Status: Appropriate 02/02/19 10:45: WBC 8.7, RBC 3.96 L, Hgb 12.5 L, Hct 37.6 L, MCV 94.9 H, MCH 31.6, MCHC 33.2, RDW 13.9, RDW Differential 47.5 H, Plt Count 242, MPV 10.2, Immature Gran % (Auto) 0.100, Neut % (Auto) 82.1 H, Lymph % (Auto) 8.1 L, [place] % (Auto) 8.0, Eos % (Auto) 1.5, Baso % (Auto) 0.2, Absolute Neuts (auto) 7.2, Total Counted Not Reportable 02/02/19 10:45: Sodium 135 L, Potassium 4.5, Chloride 106, Carbon Dioxide 25.0, Anion Gap 4 L, BUN 26 H, Creatinine 1.21, Est GFR (MDRD) Af Amer 76, Est GFR (MDRD) Non-Af 63, BUN/Creatinine Ratio 21.5 H, Glucose 199 H, Calcium 8.8, Troponin I 8.740 H* Rhythm: EKG: Sinus rhythm with a right bundle branch block and no acute changes ECHO: Pending Assessment/Plan 1. Non ST elevation myocardial infarction Patient presents with chest discomfort and has developed a non-ST elevation myocardial infarction following discontinuation of his Plavix for a routine colonoscopy. The patient has had previous stents placed in his right coronary artery as well as left anterior descending artery as discussed above. My recommendation is for the patient to undergo a repeat cardiac catheterization and intervention as necessary. As patient is pain-free at this time I would recommend this be performed in the a.m. In the meantime: Would suggest the following: Continue aspirin Reload with clopidogrel Lovenox Continue beta-hilario Schedule cardiac catheterization in a.m. with Dr. Palma 2. Hypertension Continue current medical therapy 3. Right bundle branch block The above appears to be stable with no make any changes 4. We will continue risk factor modification. Patient would also need to follow-up with the pulmonary service for his sarcoid.
--- NOTE | 2019-02-02 16:25 | EKG12_ITS ---
Test Reason : Blood Pressure : / mmHG Vent. Rate : 060 BPM Atrial Rate : 060 BPM P-R Int : 156 ms QRS Dur : 142 ms QT Int : 426 ms P-R-T Axes : 063 092 083 degrees QTc Int : 426 ms Normal sinus rhythm Right bundle branch block Anterolateral infarct , age undetermined Abnormal ECG Confirmed by JAMES MARTINEZ, LIDIA ([id number]), editorial project manager ALEXANDER DELGADO ([id number]) on 02/09/2019 12:16:33 PM Referred By: Confirmed By:LIDIA RAMIREZ MD
[2019-02-02] MEDS: Albuterol 2.5 MG/3 ML VIAL.NEB. INHALATION (20:00)
[2019-02-02] MEDS: Budesonide Respules 0.5 MG/2 ML AMPUL.NEB. INHALATION (20:10)
[2019-02-02 21:13] LABS: Color, Urine Yellow (Yellow); Glucose, Dipstick Normal (Normal); Ketone-Dipstick Negative (Negative); Leukocyte Esterase-Dipstick Negative /ul (Negative); Nitrite-Dipstick Negative (Negative); Occult Blood-Urine Negative /ul (Negative); Protein-Dipstick Negative (Negative); Urine Bilirubin Dipstick Negative (Negative); Urine Clarity Clear (Clear); Urine Urobilinogen Normal (Normal); Urine pH 6.5 (5.0 - 8.0)
[2019-02-02] MEDS: Enoxaparin 80 MG/0.8 ML Syringe SC (21:14)
[2019-02-02] MEDS: Metoprolol Tartrate 25 MG Tablet 12.5 MG PO (21:14)
[2019-02-03] VITALS (32 sets, daily range): BP systolic 90–156; BP diastolic 35–76; PULSE 52–87; RESP 14–24; TEMP 36.4–36.9; O2SAT 95–100; BMI 26.6
[2019-02-03] MEDS: 0.9% Normal Saline 1,000 ML 15 ML IV (05:47)
[2019-02-03] MEDS: Clopidogrel Bisulfate 75 MG Tablet PO (05:47)
[2019-02-03] MEDS: Metoprolol Tartrate 25 MG Tablet 12.5 MG PO ×2 (05:47→20:42)
[2019-02-03] MEDS: Aspirin E.C. 81 MG Tablet PO (05:47)
[2019-02-03] MEDS: Lisinopril 20 MG Tablet PO (05:47)
--- NOTE | 2019-02-03 05:55 | EKG12_ITS ---
Test Reason : CP Blood Pressure : / mmHG Vent. Rate : 062 BPM Atrial Rate : 062 BPM P-R Int : 150 ms QRS Dur : 140 ms QT Int : 410 ms P-R-T Axes : 058 063 077 degrees QTc Int : 416 ms Normal sinus rhythm Right bundle branch block Anterolateral infarct , age undetermined Abnormal ECG Confirmed by JAMES MARTINEZ, LIDIA ([id number]), features editor ALEXANDER DELGADO ([id number]) on 02/09/2019 12:19:43 PM Referred By: SAMMIE Confirmed By:LIDIA RAMIREZ MD
[2019-02-03] MEDS: Ondansetron 4 MG/2 ML Vial IV (05:56)
[2019-02-03 06:46] LABS: Absolute Lymphocyte Count 1.07 X10^3/ul (0.83-4.51); Absolute Neutrophil Count 7.1 X10^3/uL (2.0-7.7); Basophil# 0.02 X10^3/uL; Basophil% 0.2 % (0-1); Eosinophil# 0.17 X10^3/uL; Eosinophils% 1.8 % (0-5); Hematocrit 37.1 % (40-54); Hemoglobin 12.4 g/dl (13.0-16.5); Lymphocyte # 1.07 X10^3/ul (4.0); Lymphocyte % 11.6 % (19-41); Mean Corp Hgb Conc 33.4 g/gl (32-36); Mean Corpuscular Hgb 31.7 pg (27.0-32.0); Mean Corpuscular Volume 94.9 fL (80-94); Mean Platelet Vol. 10.3 fl (6.2-12.0); Monocyte# 0.87 X10^3/uL; Monocyte% 9.4 % (0-10); Neutrophil # 7.09 X10^3/uL (2.7-7.7); Neutrophil % 76.9 % (47-70); Platelet Count 243 K/mm3 (150-450); RBC Distribution Width SD 47.5 fl (35.1-43.9); Red Blood Count 3.91 M/mm3 (4.6-6.2); White Blood Count 9.2 K/mm3 (4.4-11.0)
[2019-02-03 06:47] LABS: POSITIVE COUNT NO; POSITIVE DIFFERENTIAL NO; POSITIVE MORPHOLOGY NO; Partial Thromboplast Time 37.3 Seconds (24.1-36.2); Prothrombin Time (Protime)PT. 13.4 SECONDS (11.7-14.9)
[2019-02-03 07:00] LABS: AST(SGOT) 44 U/L (15-37); Alanine Aminotransfer ALT/SGPT 33 U/L (16-61); Albumin, Serum 3.7 g/dL (3.2-5.0); Alkaline Phosphatase 92 U/L (45-117); Anion Gap 9 (5-15); BUN 19 mg/dL (7-18); BUN/Creat Ratio 17.9 RATIO (10-20); Calcium,Total 9.1 mg/dL (8.5-10.1); Chloride 104 mmol/L (98-107); Cholesterol 143 mg/dL (200); Creatinine, Serum 1.06 mg/dL (0.70-1.30); EST Glomerular Filtration Rate 73 mL/min (>60); Est Glom Filt Rate - Afr Amer 88 mL/min (>60); Estimated Creatinine Clearance 62.99 ml/min; Globulin 3.6 g/dL (2.2-4.2); Glucose 152 mg/dL (74-106); High Density Lipoprotein 57 mg/dL; Potassium 3.9 mmol/L (3.5-5.1); Protein, Total 7.3 g/dL (6.4-8.2); Sodium Level 138 mmol/L (136-145); Triglycerides 154 mg/dL; Very Low Density Lipoprotein 31 mg/dL (5-40)
--- NOTE | 2019-02-03 07:17 | NURSING ---
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
[2019-02-03 08:56] LABS: ACT Activated Clotting Time 186 sec (74-137)
--- NOTE | 2019-02-03 09:02 | CL.I_ITS ---
Patient Name: ROJELIO WARD Study Date: 02/03/2019 Performing: Aman Palma MD Ht: 69 inches 175 cm : 1945 Wt: 181 lbs 82 kg Age: 73 Gender: male BSA: 1.98 PROCEDURE(S) PERFORMED FN30-KFF/COR/LV RU50-ETK W OR WO PTCA, SINGLE CORONARY ARTERY CLINICAL PROFILE AND CO-MORBIDITIES Patient presents with NSTEMI for urgent cardiac cath Indications: ACS > 24 hrs, New Onset Angina <= 2 months, Stable Known CAD, LV Dysfunction Heart Failure: NYHA Class: 1, Newly Diagnosed: Yes, Heart Failure Type: Systolic Stress/Imaging Stress/Image Study Performed: No Angina Classification Anginal Classification w/in 2 Weeks: No symptoms CAD Presentations: Unstable angina. Non-STEMI. Symptom onset Date/Time: 02/01/2019 Time Not Availa ble Comorbidities/Risk Factors: Hypertension Dyslipidemia Prior PCI CONCLUSIONS Single vessel CAD of the mid LAD (occluded from ISR) Successful PTCA/TK mid LAD with a 2.0 x 10 Angiosculpt, followed with a 2.25 x 28 Promus Synergy, po st dilated in proximal half with a 2.5 x 8 NC Balloon; 100%-->0%, no dissection. RECOMMENDATIONS Referred for immediate PCI Highly recommend quitting all tobacco products Follow up with primary production control scheduler Risk factor modification ASA Indefinitley Plavix for at least 12 months Routine post interventional care Refer for Outpatient Cardiac Rehab Manual sheath removal per protocol Follow up with Dr. Palma asa/plavix for life. Manual sheath removal as pt is too thin for Mynx. DESCRIPTION OF PROCEDURE The patient arrived to the procedure lab. The risks and benefits of the procedure as well as a full d escription of our services here and lack of surgical backup were fully explained to the patient and/o r their significant other prior to the catheterization. The Timeout was completed, verifying the skye ect patient and procedure. The patient's procedural site was prepped and draped in the usual fashion. Local anesthetic was given subcutaneously to right groin region with Lidocaine 2%. Using a modified Seldinger technique, arterial access was obtained via the right femoral artery, a 4Fr sheath was inse rted. Left Coronary Artery selective angiography was performed in multiple views using a 4 Fr. JL5 c atheter. Right Coronary Artery selective angiography was then performed in multiple views using a 4 F r. 3DRC catheter. Left Ventriculography was performed in OROPEZA projection using a 4 Fr. Pigtail cathete r. LV to AO pullback pressures were then recordedThe images were reviewed and options discussed. A decision was then made to proceed with an Intervention, IVUS or other adjunct procedure. Arterial sheath was exchanged for a 6 Fr Sheath. EBU 3.5 Guide catheter was inserted and engaged into the LCA. Runthrough Guide wire was advanced to the LAD. Emerge 2.0 x 12 Balloon catheter was ins erted. Balloon catheter was advanced across lesion in the LAD, mid. Angiogram performed pre balloon d ilatation. PTCA balloon inflated at 6 atms for 5 secs. PTCA balloon inflated at 4 atms for 6 secs. PT CA balloon inflated at 6 atms for 6 secs. Angiogram performed post balloon dilatation. PTCA balloon i nflated at 6 atms for 7 secs. Angiogram performed post balloon dilatation. Emerge 2.0 x 12 Balloon ca theter was reinserted Angiogram performed pre balloon dilatation. PTCA balloon inflated at 10 atms fo r 16 secs. Angiogram performed post balloon dilatation. Angiosculpt 2.0 x 10 Balloon catheter was ins erted. Balloon catheter was advanced across lesion in the LAD, mid. PTCA balloon inflated at 8 atms f or 10 secs. Synergy 2.25 x 28 Drug Eluting stent was inserted. Drug Eluting stent was advanced across the lesion in the LAD, mid. Angiogram performed pre stent deployment. Angiogram perfo rmed post stent deployment. NC Emerge 2.5 x 8 Balloon catheter was inserted. Balloon catheter was adv anced across lesion in the LAD, mid. Angiogram performed post balloon dilatation. Angiogram performed post balloon dilatation. The arterial sheath was sutured in place and capped CORONARY ANGIOGRAPHY DOMINANCE: Right Dominant LEFT HEART ASSESSMENT Left Ventricular Ejection Fraction: by LV Gram 40 % Depressed Left Ventricular systolic function LVEDP: 20 mmHg Anterior Hypokinesis - Moderate LEFT MAIN: 40 ostial % Stenosis LEFT ANTERIOR DECENDING ARTERY: MID LAD: Instent restenosis 90 %, occluded acutely distal to stent. CIRCUMFLEX ARTERY: MID CIRC: Previously placed stent is patent RIGHT CORONARY ARTERY: MID RCA: Instent restenosis 30 % DISTAL RCA: Previously placed stent is patent INTERVENTION INFORMATION LESION SITE: LAD (Mid) Lesion Complexity: High/C, lesion at bifurcation: No, thrombus present: Yes, lesion length: 28 mm, cu lprit lesion: Yes Pre Stenosis: 100 % Pre intervention AMERICO flow: 0 PROCEDURE: Balloon Angioplasty, Cutting Balloon Angioplasty, Drug Eluting Stent with pre and post dilatation Post Stenosis: 0 % Post intervention AMERICO flow: 3 Lesion Devices: Medtronic 6 Fr EBU3.5 100cm Guide Catheter Terumo .014 Runthrough Extra Floppy 180cm straight Juve Sci EMERGE MR 2.00x12 BALLOON [employer] Angiosculpt RX 2.0x10 Scoring Balloon Juve Sci Synergy MR TK 2.25x28 Juve Sci NC EMERGE MR 2.50x08 BALLOON COMPLICATIONS No Complications PROCEDURE MEDICATIONS Versed 1 mg IV Versed 1 mg IV Oxygen: 2 L/min via nasal cannula Heparin 6000 unit(s) IV 02/03/2019 08:13:38 Nitro 200 mcg IC 02/03/2019 08:22:51 Nitro 200 mcg IC 02/03/2019 08:22:51 Nitro 200 mcg IC 02/03/2019 08:29:54 IV Bolus: .9 NaCl 750 ml total 02/03/2019 08:13:59 SUMMARY OF HEMODYNAMIC DATA Time AIR REST ECG 07:44:39 AO 111/51 (70) SA 08:04:23 LV 110/-2, 13 08:10:33 LV 125/-3, 20 08:10:40 LVp 126/-5, 21 08:10:43 AOp 129/58 (89) 08:10:48 Signed By Aman Palma MD On 02/25/2019 10:33:47 Aman Palma MD
--- NOTE | 2019-02-03 09:25 | PCM.PN.HOSP ---
Patient Problems: Active and Suspected Problems (Last Reviewed 02/02/19 @ 14:19 by Daquan Shirley DO) NSTEMI, initial episode of care (Acute) Subjective: Patient was seen and examined. Hard of hearing. Denied any chest pain, dizziness, palpitations. He had cardiac cath done today. In ICu post-cath. Vitals/I&O's: Vital Signs Temp Pulse Resp BP Pulse Ox 97.8 F 52 L 16 156/76 H 98 02/03/19 05:46 02/03/19 06:46 02/03/19 05:46 02/03/19 05:47 02/03/19 05:46 Oxygen Delivery Method Room Air Weight: 82.024 kg Body Mass Index (BMI) 26.6 Intake and Output for Last 24 Hours 02/01/19 02/02/19 02/03/19 23:59 23:59 23:59 Intake Total 540 / 540 Balance 540 / 540 General: Alert, Oriented x3, Cooperative, No apparent distress HEENT: Atraumatic, PERRLA, EOMI, Normocephalic, - - hearing aids Oral: Moist Mucosa Neck: Supple Lungs: Clear to auscultation, Normal air movement Cardiovascular: Regular rate, Regular Rhythm, Normal S1, Normal S2 Abdomen: Bowel Sounds Present, Soft, Non Tender, Non-Distended, No Hepato-splenomegaly Extremities: No edema Skin: No rashes Musculoskeletal: No Tenderness to Palpation of Joints or Extremities Lymphatic: No Cervical, Supraclavicular, or Inguinal Adenopathy Neurological: Cranial nerves II-XII grossly intact, Neuro grossly intact Psych/Mental Status: Normal Affect, Appropriate Laboratory Results 02/02/19 10:45: WBC 8.7, RBC 3.96 L, Hgb 12.5 L, Hct 37.6 L, MCV 94.9 H, MCH 31.6, MCHC 33.2, RDW 13.9, RDW Differential 47.5 H, Plt Count 242, MPV 10.2, Immature Gran % (Auto) 0.100, Neut % (Auto) 82.1 H, Lymph % (Auto) 8.1 L, [place] % (Auto) 8.0, Eos % (Auto) 1.5, Baso % (Auto) 0.2, Absolute Neuts (auto) 7.2, Absolute Lymphs (auto) 0.71 L, Total Counted Not Reportable 02/02/19 10:45: Sodium 135 L, Potassium 4.5, Chloride 106, Carbon Dioxide 25.0, Anion Gap 4 L, BUN 26 H, Creatinine 1.21, Estim Creat Clear Calc 55.18, Est GFR (MDRD) Af Amer 76, Est GFR (MDRD) Non-Af 63, BUN/Creatinine Ratio 21.5 H, Glucose 199 H, Calcium 8.8, Troponin I 8.740 H* 02/02/19 15:08: Troponin I 12.100 H* 02/02/19 17:20: Troponin I 11.000 H* 02/02/19 21:03: Urine Color Yellow, Urine Clarity Clear, Urine pH 6.5, Ur Specific [place] 1.010, Urine Protein Negative, Urine Glucose (UA) Normal, Urine Ketones Negative, Urine Occult Blood Negative, Urine Nitrite Negative, Urine Bilirubin Negative, Urine Urobilinogen Normal, Ur Leukocyte Esterase Negative 02/03/19 06:12: Sodium 138, Potassium 3.9, Chloride 104, Carbon Dioxide 25.0, Anion Gap 9, BUN 19 H, Creatinine 1.06, Estim Creat Clear Calc 62.99, Est GFR (MDRD) Af Amer 88, Est GFR (MDRD) Non-Af 73, BUN/Creatinine Ratio 17.9, Glucose 152 H, Calcium 9.1, Total Bilirubin 0.80, AST 44 H, ALT 33, Alkaline Phosphatase 92, Total Protein 7.3, Albumin 3.7, Globulin 3.6, Albumin/Globulin Ratio 1.0, Triglycerides 154, Cholesterol 143, LDL Cholesterol 55, VLDL Cholesterol 31, HDL Cholesterol 57 02/03/19 06:12: WBC 9.2, RBC 3.91 L, Hgb 12.4 L, Hct 37.1 L, MCV 94.9 H, MCH 31.7, MCHC 33.4, RDW 14.0, RDW Differential 47.5 H, Plt Count 243, MPV 10.3, Immature Gran % (Auto) 0.100, Neut % (Auto) 76.9 H, Lymph % (Auto) 11.6 L, [place] % (Auto) 9.4, Eos % (Auto) 1.8, Baso % (Auto) 0.2, Absolute Neuts (auto) 7.1, Absolute Lymphs (auto) 1.07, Total Counted Not Reportable 02/03/19 06:12: PT 13.4, INR 1.0, APTT 37.3 H 02/03/19 08:43: Activated Clotting Time 186 H Current Medications Acetaminophen (Tylenol) 650 mg PO Q6H PRN PRN PRN Reason: Mild Pain (1-3)/Temp > 100.7 F Albuterol Sulfate (Ventolin Aerosols) 2.5 mg INHALATION Q4H PRN PRN PRN Reason: SOB &/OR WHEEZING Albuterol Sulfate (Ventolin Aerosols) 2.5 mg INHALATION Q6HWA.RT [facility] Last Admin: 02/02/19 20:00 Dose: 2.5 mg Aspirin (Ecotrin) 81 mg PO DAILY@0800 [facility] Last Admin: 02/03/19 05:47 Dose: 81 mg Atorvastatin Calcium (Lipitor) 80 mg PO DAILY [facility] Budesonide (Pulmicort Aerosol) 0.5 mg INHALATION Q12H.RT [facility] Last Admin: 02/02/19 20:10 Dose: 0.5 mg Clopidogrel Bisulfate (Plavix) 75 mg PO DAILY [facility] Last Admin: 02/03/19 05:47 Dose: 75 mg Folic Acid (Folic Acid) 1 mg PO DAILY@0800 [facility] Hydrochlorothiazide (Hctz) 25 mg PO DAILY [facility] Sodium Chloride () 1,000 mls @ 15 mls/hr IV .Q48H [facility] Last Admin: 02/03/19 05:47 Dose: 15 mls/hr Lisinopril (Zestril) 20 mg PO DAILY [facility] Last Admin: 02/03/19 05:47 Dose: 20 mg Magnesium Hydroxide (Milk Of Magnesia) 30 ml PO DAILY PRN PRN Reason: Constipation Metoprolol Tartrate (Lopressor (Beta Lizz)) 12.5 mg PO BID [facility] Last Admin: 02/03/19 05:47 Dose: 12.5 mg Morphine Sulfate () 2 - 4 mg IV Q4H PRN PRN PRN Reason: MOD-SEVERE PAIN (4-10/10) Multivitamins (Multivitamin) 1 tablet PO DAILY@0800 [facility] Nitroglycerin (Nitrostat) 0.4 mg SUBLINGUAL Q5M PRN PRN Reason: Chest Pain Ondansetron HCl (Zofran) 4 mg IV Q8H PRN PRN PRN Reason: NAUSEA Last Admin: 02/03/19 05:56 Dose: 4 mg Oxycodone HCl (Oxyir) 5 mg PO Q4H PRN PRN PRN Reason: MOD-SEVERE PAIN (4-08/13) Pantoprazole Sodium (Protonix) 20 mg PO DAILY [facility] Potassium Chloride (K-Dur) 10 meq PO DAILY [facility] Sodium Chloride () 5 - 15 ml IV UD PRN PRN Reason: SALINE FLUSH Medical Necessity - Tobacco Use Smoking Status: Never smoker Assessment/Plan All Active Problems (Last Reviewed 02/02/19 @ 14:19 by Daquan Shirley DO) NSTEMI, initial episode of care (Acute) Stage 2 moderate COPD by GOLD classification (Acute) Pneumonia (Acute) 73-year-old male with past medical history of COPD, hypertension, sarcoidosis, hyperlipidemia who comes in complaints of chest pain and elevated troponins. 1. Acute NSTEMI, AMERICO score of 6, status post cardiac cath, findings show CAD of the mid LAD, Status post TK, on aspirin, statin, Plavix 2. Hypertension, controlled, continue on hydrochlorothiazide, Lisinopril, metoprolol Continue to monitor vitals 3. GI bleed,chronic, stable hemoglobin, will need to be followed up by police and outpatient, continue on PPI 4. COPD, not in acute exacerbation 5. Solar lentigo, outpatient follow-up 6. DVT prophylaxis-received heparin today for cardiac cath, will start prophylactic heparin tomorrow Code Visit Inpatient E&M: 56903 Subs Hosp L2
--- NOTE | 2019-02-03 09:39 | EKG12_ITS ---
Test Reason : POST PCI Blood Pressure : / mmHG Vent. Rate : 066 BPM Atrial Rate : 066 BPM P-R Int : 162 ms QRS Dur : 142 ms QT Int : 418 ms P-R-T Axes : 065 094 101 degrees QTc Int : 438 ms Normal sinus rhythm Right bundle branch block Anterolateral infarct , age undetermined Abnormal ECG When compared with ECG of 03-FEB-2019 05:44, MANUAL COMPARISON REQUIRED, DATA IS UNCONFIRMED Confirmed by SYLVIA MARTINEZ, LEANDRO ([id number]), make up editor ALEXANDER DELGADO ([id number]) on 02/09/2019 1:36:00 PM Referred By: MICHAEL Confirmed By:LEANDRO WARD MD
[2019-02-03] MEDS: 0.9% Normal Saline 1,000 ML 150 ML IV (10:00)
--- NOTE | 2019-02-03 10:36 | CRPHASE1 ---
Patient Communication PHII Cardiac Rehab Discussed with Patient:: Yes Guide to Cardiac Rehab Given to Patient:: Yes Cardiac Rehab Facility Choice List Given to Patient:: Yes - PT AND [facility] IN [place] [employer]ics Systems Repairer:: Aman Palma PCP:: SOBIA WHITE Choice Letter Given to Patient:: Yes Guide to Cardiac Rehab Given by ICU Staff Prior to Discharge: Yes Risk Factors/Lifestyle Smoking Status: Never smoker Hx Hypertension: Yes Hx Diabetes Mellitus Type 1: No Hx Diabetes Mellitus Type 2: No Hx Dyslipidemia: Yes Hx Obesity: No Height: 5 ft 9 in Weight:: 180 lb BMI: 26.6 Family History: Family History (Last Reviewed 02/02/19 @ 14:20 by Daquan Shirley DO) Father CAD (coronary artery disease) Mother CAD (coronary artery disease) Past Cardiac Illness: Coronary Artery Disease, Myocardial Infarction, Previous PCI w/Stent Laboratory Values: Cardiac Rehab Phase I Labs Triglycerides 154 mg/dL (-199) 02/03/19 06:12 Cholesterol 143 mg/dL (200) 02/03/19 06:12 LDL Cholesterol 55 mg/dL (0-130) 02/03/19 06:12 HDL Cholesterol 57 mg/dL (40-) 02/03/19 06:12 Phase I Education Given On:: [place], Nutrition, Antiplatelet medication, CHF, Smoking cessation, Diabetes - Type I, Diabetes - Type II Issues Affecting Care:: Hearing Knowledge of Condition:: Yes Medical/Surgical History [place]:: Yes Angina:: Yes CAD:: Yes COPD:: Yes Diabetes:: No Hypertension:: Yes Dyslipidemia:: Yes PE:: No DVT:: No PVD:: No Arthritis:: Yes GERD:: Yes Cancer:: No Renal:: No Thyroid:: No Depression:: No Anxiety:: No CABG: No PTCA:: Yes ICD:: No Pacemaker:: No Discharge/Home/Social Eval Discharge Disposition: Home Marital Status: Cardiac Rehabilitation Info Cardiac Rehabilitation Program Information: Cardiac Rehabilitation is important for patients like you who are recovering from a heart problem. Cardiac rehabilitation programs are recognized as integral to the continued care of the patient with coronary heart disease. The cardiac rehabilitation program is designed to optimize a patient's physical, psychological, and social functioning. Health housekeeper caregiver work in cardiac rehabilitation programs and assist you with getting the treatments you need to get stronger and healthier - like exercise, healthy eating habits, and medications. Cardiac rehabilitation has been show to help people with heart problems live longer and have better life enjoyment than people who do not go to cardiac rehabilitation. Please contact the Cardiac Rehabilitation Program at [facility] at in two weeks if you have not heard from them.
--- NOTE | 2019-02-03 10:41 | CRPHASE1_ITS ---
Addendum entered and electronically signed by Mick Corona CRT, [employer], BS 02/10/19 14:46: The patient resides in [place], [place]. The patient was referred to [facility] CR Phase II prior to discharge. After speaking with the patient, and due to his location, he asked we send his information to [facility] in [place]. With the patient's permission, all information was FAXed to Casandra at [facility] . Original Note: Patient Communication PHII Cardiac Rehab Discussed with Patient:: Yes Guide to Cardiac Rehab Given to Patient:: Yes Cardiac Rehab Facility Choice List Given to Patient:: Yes - PT AND L[facility] IN [place] Compilation Clerk:: Aman Palma PCP:: SOBIA WHITE Choice Letter Given to Patient:: Yes Guide to Cardiac Rehab Given by ICU Staff Prior to Discharge: Yes Risk Factors/Lifestyle Smoking Status: Never smoker Hx Hypertension: Yes Hx Diabetes Mellitus Type 1: No Hx Diabetes Mellitus Type 2: No Hx Dyslipidemia: Yes Hx Obesity: No Height: 5 ft 9 in Weight:: 180 lb BMI: 26.6 Family History: Family History (Last Reviewed 02/02/19 @ 14:20 by Daquan Shirley DO) Father CAD (coronary artery disease) Mother CAD (coronary artery disease) Past Cardiac Illness: Coronary Artery Disease, Myocardial Infarction, Previous PCI w/Stent Laboratory Values: Cardiac Rehab Phase I Labs Triglycerides 154 mg/dL (-199) 02/03/19 06:12 Cholesterol 143 mg/dL (200) 02/03/19 06:12 LDL Cholesterol 55 mg/dL (0-130) 02/03/19 06:12 HDL Cholesterol 57 mg/dL (40-) 02/03/19 06:12 Phase I Education Given On:: [place], Nutrition, Antiplatelet medication, CHF, Smoking cessation, Diabetes - Type I, Diabetes - Type II Issues Affecting Care:: Hearing Knowledge of Condition:: Yes Medical/Surgical History [place]:: Yes Angina:: Yes CAD:: Yes COPD:: Yes Diabetes:: No Hypertension:: Yes Dyslipidemia:: Yes PE:: No DVT:: No PVD:: No Arthritis:: Yes GERD:: Yes Cancer:: No Renal:: No Thyroid:: No Depression:: No Anxiety:: No CABG: No PTCA:: Yes ICD:: No Pacemaker:: No Discharge/Home/Social Eval Discharge Disposition: Home Marital Status: Cardiac Rehabilitation Info Cardiac Rehabilitation Program Information: Cardiac Rehabilitation is important for patients like you who are recovering from a heart problem. Cardiac rehabilitation programs are recognized as integral to the continued care of the patient with coronary heart disease. The cardiac rehabilitation program is designed to optimize a patient's physical, psychological, and social functioning. Health career services coordinator work in cardiac rehabilitation programs and assist you with getting the treatments you need to get stronger and healthier - like exercise, healthy eating habits, and medications. Cardiac rehabilitation has been show to help people with heart problems live longer and have better life enjoyment than people who do not go to cardiac rehabilitation. Please contact the Cardiac Rehabilitation Program at [facility] at in two weeks if you have not heard from them.
--- NOTE | 2019-02-03 10:42 | CRPH1.INSTRU ---
General Education CAD and cardiac anatomy and function:: Not instructed Explanation of diagnoses and procedures:: Not instructed Sign/Symptoms of KS:: Not instructed Antiplatelet therapy: Patient communicates acknowledgment, Family communicates acknowledgment, Needs reinforcement Proper use of NTG-SL: Patient communicates acknowledgment, Family communicates acknowledgment, Needs reinforcement Emergency procedures and activation of EMS: Patient communicates acknowledgment, Family communicates acknowledgment, Needs reinforcement Compliance of all prescribed medications: Needs reinforcement Smoking Patient Nicotine/Smoking Risk Factors Are:: Non-smoker Dyslipidemia Patient Dyslipidemia Risk Factors Are:: Total Cholesterol - 143, Triglycerides - 154, HDL - 57, LDL - 55 Dyslipidemia Response Code:: Not instructed Overweight/Obesity Patient Overweight/Obesity Risk Factors Are:: BMI Normal [24-29 & > 65 years old] Overweight/Obesity:: Not instructed Hypertension Recommendations Include:: Maintain BP <130/85, BP <130/80 if diabetic, DASH dietary guidelines, Decrease/maintain normal body weight, Moderation of ETOH Hypertension:: Needs reinforcement Heart Disease Patient Heart Disease Risk Factors Are:: Previous cardiac event Heart Disease Response Code:: Not instructed Diabetes Patient Diabetes Risk Factors Are:: No documented hx of diabetes Metabolic Syndrome Metabolic Syndrome Response Code:: Not instructed Sedentary Sedentary Response Code:: Not instructed Stress Stress Response Code:: Not instructed
[2019-02-03] MEDS: LORazepam 1 MG Tablet PO (12:02)
[2019-02-03] MEDS: Albuterol 2.5 MG/3 ML VIAL.NEB. INHALATION ×2 (13:19→19:40)
[2019-02-03] MEDS: Folic Acid 1 MG Tablet PO (16:08)
[2019-02-03] MEDS: hydroCHLOROthiazide 25 MG Tablet PO (16:09)
[2019-02-03] MEDS: Multivitamins,Therapeutic Tablet 1 TABLET PO (16:09)
[2019-02-03] MEDS: Pantoprazole Sodium 20 MG Tablet PO (16:09)
[2019-02-03] MEDS: Atorvastatin Calcium 80 MG Tablet PO (16:09)
[2019-02-03] MEDS: 0.9% NaCl Peripheral Flush Adult/Peds IV (16:10)
--- NOTE | 2019-02-03 17:57 | NURSING ---
Pt walked halls of ICU after bedrest complete. R groin remains stable. Pt denies CP/dyspnea. Will continue to monitor.
[2019-02-03] MEDS: Budesonide Respules 0.5 MG/2 ML AMPUL.NEB. INHALATION (19:40)
[2019-02-04] VITALS (14 sets, daily range): BP systolic 85–118; BP diastolic 39–63; PULSE 46–66; RESP 12–20; TEMP 36.4–36.8; O2SAT 96–99
[2019-02-04 04:36] LABS: Hematocrit 32.2 % (40-54); Hemoglobin 10.7 g/dl (13.0-16.5); Mean Corp Hgb Conc 33.2 g/gl (32-36); Mean Corpuscular Hgb 31.6 pg (27.0-32.0); Mean Platelet Vol. 10.2 fl (6.2-12.0); Platelet Count 195 K/mm3 (150-450); RBC Distribution Width SD 47.7 fl (35.1-43.9); Red Blood Count 3.39 M/mm3 (4.6-6.2); White Blood Count 6.9 K/mm3 (4.4-11.0)
[2019-02-04 04:40] LABS: Scan Indicated on CBC? Y/N NO
[2019-02-04 04:55] LABS: Anion Gap 9 (5-15); BUN 18 mg/dL (7-18); BUN/Creat Ratio 18.5 RATIO (10-20); Calcium,Total 8.5 mg/dL (8.5-10.1); Chloride 105 mmol/L (98-107); Cholesterol 115 mg/dL (200); Creatinine, Serum 0.98 mg/dL (0.70-1.30); EST Glomerular Filtration Rate 80 mL/min (>60); Est Glom Filt Rate - Afr Amer 97 mL/min (>60); Estimated Creatinine Clearance 68.13 ml/min; Glucose 171 mg/dL (74-106); High Density Lipoprotein 54 mg/dL; Potassium 3.9 mmol/L (3.5-5.1); Sodium Level 139 mmol/L (136-145); Triglycerides 72 mg/dL; Very Low Density Lipoprotein 14 mg/dL (5-40)
[2019-02-04] MEDS: Budesonide Respules 0.5 MG/2 ML AMPUL.NEB. INHALATION (06:59)
[2019-02-04] MEDS: Albuterol 2.5 MG/3 ML VIAL.NEB. INHALATION (07:00)
--- NOTE | 2019-02-04 08:32 | PCM.PN.CARD ---
Subjectve: Patient doing very well this morning, no 24-hour events. No further chest pain. Telemetry negative. EKG shows normal sinus rhythm with previously observed right bundle branch block with resolving J-point elevation. Right groin is clean/dry/intact. Hemoglobin and creatinine are within nominal limits. Objective: Vital Signs Temp Pulse Resp BP Pulse Ox 97.9 F 61 12 109/49 L 99 02/04/19 08:00 02/04/19 08:00 02/04/19 08:00 02/04/19 08:00 02/04/19 08:00 Oxygen Delivery Method Room Air Weight: 180 lb Body Mass Index (BMI) 26.6 Intake and Output for Last 24 Hours 02/02/19 02/03/19 02/04/19 23:59 23:59 23:59 Intake Total 540 / 540 1730 / 1730 240 / 240 Output Total 400 / 400 Balance 540 / 540 1330 / 1330 240 / 240 General: Awake, Alert, Oriented x 3 HEENT: PERRL, EOMI, Sclera Non Icteric Neck: Supple, Good ROM, No Lymph Node Enlargement Lungs: Clear to auscultation Cardiovascular: Regular Rhythm, Normal S1, Normal S2, No Murmurs, No Rubs, No Gallops Vascular: No Carotid Bruits, Normal Femoral Pulses, Normal Radial Pulses, Normal Dorsalis Pedal Pulse, Normal Posterior Tibial Pulses Abdomen: Bowel Sounds Present, Soft, Non Tender, No HSM, No Organomegaly Extremities: No Cyanosis, No Clubbing, No edema Neurological: No Focal Motor or Sensory Deficit 02/04/19 03:45: WBC 6.9, RBC 3.39 L, Hgb 10.7 L, Hct 32.2 L, MCV 95.0 H, MCH 31.6, MCHC 33.2, RDW 14.0, RDW Differential 47.7 H, Plt Count 195, MPV 10.2 02/04/19 03:45: Sodium 139, Potassium 3.9, Chloride 105, Carbon Dioxide 25.0, Anion Gap 9, BUN 18, Creatinine 0.98, Est GFR (MDRD) Af Amer 97, Est GFR (MDRD) Non-Af 80, BUN/Creatinine Ratio 18.5, Glucose 171 H, Calcium 8.5, Triglycerides 72, Cholesterol 115, LDL Cholesterol 47, VLDL Cholesterol 14, HDL Cholesterol 54 Rhythm: EKG: ECHO: Stress Test: Cardiac Cath: PCI: CT Surgery: Holter monitor: EPS: PPM: CXR: Chest CT Scan: Medical Necessity - Tobacco Use Smoking Status: Never smoker Assessment/Plan 1. Coronary artery disease: The patient presents several days after stopping his Plavix for a colonoscopy with acute coronary syndrome and occluded LAD stent. Patient underwent successful angioplasty and drug-eluting stent to his mid LAD receiving a 2.25 ex-28 Promus Synergy drug-eluting stent, postdilated proximally with a 2.5 mm balloon with an excellent result. Patient does have evidence of anterior hypokinesis and evidence of right to left collateralization, suggesting and hoping that the patient has viable anterior myocardium. I recommended the patient continue his baby aspirin and Plavix for life, and should he need to undergo a colonoscopy or surgical procedure we will be unable to hold his aspirin and Plavix. Patient will be discharged home and follow-up with Dr. Palma going forward. He will be enrolled in cardiac rehab phase 2 at the conclusion of which we will repeat his echocardiogram to determine if his anterior wall hypokinesis has improved with revascularization. 2. Hyperlipidemia: Continue statin based medications. 3. Discussed with Dr. Manning. Patient may be discharged home today. Thank you very much for the opportunity to participate in the cardiac care of your patient. Code Visit Inpatient E&M: 19481 Subs Hosp L2
[2019-02-04] MEDS: Folic Acid 1 MG Tablet PO (08:50)
[2019-02-04] MEDS: Aspirin E.C. 81 MG Tablet PO (08:50)
[2019-02-04] MEDS: Multivitamins,Therapeutic Tablet 1 TABLET PO (08:50)
[2019-02-04] MEDS: Metoprolol Tartrate 25 MG Tablet 12.5 MG PO (08:51)
[2019-02-04] MEDS: hydroCHLOROthiazide 25 MG Tablet PO (08:51)
[2019-02-04] MEDS: Pantoprazole Sodium 20 MG Tablet PO (08:51)
[2019-02-04] MEDS: Clopidogrel Bisulfate 75 MG Tablet PO (08:51)
[2019-02-04] MEDS: Lisinopril 20 MG Tablet PO (08:51)
[2019-02-04] MEDS: Atorvastatin Calcium 80 MG Tablet PO (08:52)
--- NOTE | 2019-02-04 09:01 | DCINST_ITS ---
- Discharge Diagnoses Current Active Problems: Current Active and Chronic Problems (Last Updated 02/03/19 @ 16:33 by SHILOH Junior) NSTEMI, initial episode of care (Acute) Reason(s) for Visit for Discharge Instructions: Chest pain You will use the following diet at home:: Cardiac Your food should be the consistency of: Regular Your liquids should be the consistency of: Regular/Thin Discharge Activity: Return to Normal Activity Additional Instructions: Continue to take all your medications as instructed. Follow a low fat, low salt diet. Follow-up with cardiac rehab as scheduled. Allergies/Adverse Reactions: Allergies No Known Allergies Allergy (Verified 02/02/19 10:04) Medications to take at Discharge Nitroglycerin [Nitrostat] 0.4 mg SUBLINGUAL Q5M PRN 12/15/15 Omeprazole [Prilosec] 20 mg PO DAILY 12/15/15 Potassium Chloride [K-Dur] 10 meq PO DAILY 12/15/15 aspirin 81 mg tablet,delayed release 81 mg PO DAILY 11/06/17 albuterol sulfate HFA 90 mcg/actuation aerosol inhaler 1 - 2 puff INHALATION Q4H PRN PRN #18 g 03/17/18 Fluticasone/Salmeterol [Advair 250-50 Diskus] 1 puff INHALATION BID 02/02/19 Folic Acid 1 mg PO DAILY 02/02/19 Lisinopril/Hydrochlorothiazide [Zestoretic 20-25 mg Tablet] 1 tab PO DAILY 02/02/19 Methotrexate 15 mg PO TH 02/02/19 Metoprolol Tartrate [Lopressor (beta hilario)] 12.5 mg PO BID 02/02/19 Multivit-Mins/Iron/Folic/Lycop [Centrum Men's Tablet] 1 tab PO DAILY 02/02/19 Acetaminophen [Tylenol Tablet] 650 mg PO Q6H PRN PRN tablet 02/04/19 Atorvastatin Calcium [Lipitor] 80 mg PO DAILY #30 tablet 02/04/19 Clopidogrel Bisulfate [Plavix] 75 mg PO DAILY #30 tab 02/04/19 The following prescriptions were given: Atorvastatin Calcium [Lipitor] 80 mg PO DAILY #30 tablet Clopidogrel Bisulfate [Plavix] 75 mg PO DAILY #30 tab Primary Care Physician: Sarthak Mantilla MD [Primary Care Provider] - Please follow up with your Primary Care Physician in: within 1-2 weeks after discharge Test Results: Test results from this visit will be discussed in further detail at your follow- up appointment, if applicable. Please Follow Up With: Aman Palma MD When: within 1-2 weeks or as scheduled Proposed Discharge Date: 02/04/19
--- NOTE | 2019-02-04 09:02 | DS.PCM_ITS ---
Discharge Date and Diagnosis Date of Admission: 02/02/19 Date of Discharge: 02/04/19 - Primary Discharge Diagnosis Active and Suspected Problems (Last Updated 02/03/19 @ 16:33 by SHILOH Junior) Acute NSTEMI - Secondary Discharge Diagnosis Chronic Problems (Last Reviewed 02/02/19 @ 14:19 by Daquan Shirley DO) Essential hypertension (Chronic) Lung nodule, solitary (Chronic) 1.1 cm RLL image 73 shrinking in size to 0.8 cm in June 2018 Sarcoidosis of lung (Chronic) COPD (chronic obstructive pulmonary disease) (Chronic) GERD (gastroesophageal reflux disease) (Chronic) Sarcoidosis of lung (Chronic) Decrease methotrexate to 6 tablets weekly (6 x 2.5 mg = 15 mg) Right bundle branch block (Chronic) Hyperlipidemia (Chronic) Atherosclerosis of coronary artery of [place] heart without angina pectoris (Chronic) PCI- TK- Prox and Mid LAD 01/16/2017 PCI-BMS-Mid and Distal RCA 03/21/2015 Successful PTCA/TK mid LAD with a 2.0 x 10 Angiosculpt, followed with a 2.25 x 28 Promus Synergy, post dilated in proximal half with a 2.5 x 8 NC Balloon; 100%-->0%, no dissection. History of coronary artery stent placement (Chronic 01/16/17) 01/16/2017 03/21/2015 Hospital Course and Treatment Imaging Results: Clinical Impression(s) from Imaging Studies Chest X-Ray 02/02/19 10:19 IMPRESSION: No acute finding Electronically Signed: Aubrey Mcginnis DO at 11:13 EDT Tel , Service support , Cardiology Operations: None Procedures: 2-D Echocardiogram, Cardiac catheterization Summary of Care Provided: 73-year-old male with past medical history of CAD s/p stents, hypertension, sarcoidosis, hyperlipidemia admitted with chest pain and elevated troponins. Patient has reportedly had heme occult positive test and was scheduled for colonoscopy this week and had apparently been off his Plavix 3 days prior to admission. His admitting EKG showed no acute ST-T changes. Troponin was 8.74. Cardiology was consulted. Patient was started on Lovenox and loaded with Plavix. His troponins went up to a maximum of 12.1. He underwent cardiac cath which showed traction in his mid LAD, status post TK. He was managed post cardiac cath in the ICU with no acute events. He continued to remain stable and was discharged the next day on aspirin, statin, Plavix. He was continued on his pantoprazole. Follow-up with cardiac rehab with his primary as well as cardiology in the outpatient. Subjective: Patient was seen and examined. He feels well. Denies any chest pain, dizziness, palpitations. Objective: Physical exam: General: Alert, Oriented x3, Cooperative, No apparent distress HEENT: Atraumatic, PERRLA, EOMI, Normocephalic, - - hearing aids Oral: Moist Mucosa Neck: Supple Lungs: Clear to auscultation, Normal air movement Cardiovascular: Regular rate, Regular Rhythm, Normal S1, Normal S2 Abdomen: Bowel Sounds Present, Soft, Non Tender, Non-Distended, No Hepato- splenomegaly Extremities: No edema Skin: No rashes Musculoskeletal: No Tenderness to Palpation of Joints or Extremities Lymphatic: No Cervical, Supraclavicular, or Inguinal Adenopathy Neurological: Cranial nerves II-XII grossly intact, Neuro grossly intact Psych/Mental Status: Normal Affect, Appropriate - Physical Exam Vital Signs Temp Pulse Resp BP Pulse Ox 97.9 F 61 12 109/49 L 99 02/04/19 08:00 02/04/19 08:51 02/04/19 08:00 02/04/19 08:51 02/04/19 08:00 Oxygen Delivery Method Room Air Weight: 81.647 kg Body Mass Index (BMI) 26.6 Intake and Output for Last 24 Hours 02/02/19 02/03/19 02/04/19 23:59 23:59 23:59 Intake Total 540 / 540 1730 / 1730 240 / 240 Output Total 400 / 400 Balance 540 / 540 1330 / 1330 240 / 240 Laboratory Tests Past 24 Hrs 02/04/19 02/04/19 03:45 03:45 WBC 6.9 RBC 3.39 L Hgb 10.7 L Hct 32.2 L MCV 95.0 H MCH 31.6 MCHC 33.2 RDW 14.0 RDW Differential 47.7 H Plt Count 195 MPV 10.2 Sodium 139 Potassium 3.9 Chloride 105 Carbon Dioxide 25.0 Anion Gap 9 BUN 18 Creatinine 0.98 Estim Creat Clear Calc 68.13 Est GFR (MDRD) Af Amer 97 Est GFR (MDRD) Non-Af 80 BUN/Creatinine Ratio 18.5 Glucose 171 H Calcium 8.5 Triglycerides 72 Cholesterol 115 LDL Cholesterol 47 VLDL Cholesterol 14 HDL Cholesterol 54 Discharge Diet: Low fat/ Low Cholesterol, 2000 mg Sodium Diet Discharge Activity: Return to Normal Activity Home Medications: Medications to take at Discharge Omeprazole [Prilosec] 20 mg PO DAILY 12/15/15 Potassium Chloride [K-Dur] 10 meq PO DAILY 12/15/15 aspirin 81 mg tablet,delayed release 81 mg PO DAILY 11/06/17 albuterol sulfate HFA 90 mcg/actuation aerosol inhaler 1 - 2 puff INHALATION Q4H PRN PRN #18 g 03/17/18 Fluticasone/Salmeterol [Advair 250-50 Diskus] 1 puff INHALATION BID 02/02/19 Folic Acid 1 mg PO DAILY 02/02/19 Lisinopril/Hydrochlorothiazide [Zestoretic 20-25 mg Tablet] 1 tab PO DAILY 02/02/19 Methotrexate 15 mg PO TH 02/02/19 Metoprolol Tartrate [Lopressor (beta lizz)] 12.5 mg PO BID 02/02/19 Multivit-Mins/Iron/Folic/Lycop [Centrum Men's Tablet] 1 tab PO DAILY 02/02/19 Acetaminophen [Tylenol Tablet] 650 mg PO Q6H PRN PRN tablet 02/04/19 Atorvastatin Calcium [Lipitor] 80 mg PO DAILY #30 tablet 02/04/19 Clopidogrel Bisulfate [Plavix] 75 mg PO DAILY #30 tab 02/04/19 nitroglycerin 0.4 mg sublingual tablet 0.4 mg SUBLINGUAL Q5M PRN #25 tab 02/04/19 Following Prescrptions Were Given to Patient: Atorvastatin Calcium [Lipitor] 80 mg PO DAILY #30 tablet Clopidogrel Bisulfate [Plavix] 75 mg PO DAILY #30 tab Primary Care Physician: Sarthak Mantilla MD [Primary Care Provider] - Please follow up with your Primary Care Physician in: within 1-2 weeks after discharge Please Follow Up With: Aman Palma MD When: within 1-2 weeks or as scheduled Disposition: Home Minutes spent on discharge:: 40 Patient Condition:: Stable Medical Necessity - Tobacco Use Smoking Status: Never smoker Tobacco Use: Non-smoker Meaningful Use Info Meaningful Use Diagnoses (Choose all that apply): AMI - AMI Aspirin given w/in 24hrs of arrival?: Yes ASA at discharge?: Yes Statins at discharge?: Yes Daniel/ARB at discharge?: Yes Beta Lizz at discharge?: Yes Done w/ Acute GA measure.: Yes Code Visit Inpatient E&M: 31737 Disch Hosp
[2019-02-04 09:25] LABS: ACT Activated Clotting Time 158 sec (74-137)
--- NOTE | 2019-02-04 09:39 | EKG12_ITS ---
Test Reason : AM EKG Blood Pressure : / mmHG Vent. Rate : 054 BPM Atrial Rate : 054 BPM P-R Int : 156 ms QRS Dur : 146 ms QT Int : 480 ms P-R-T Axes : 057 084 109 degrees QTc Int : 455 ms Sinus bradycardia Right bundle branch block Anterolateral infarct , age undetermined Abnormal ECG When compared with ECG of 03-FEB-2019 09:21, MANUAL COMPARISON REQUIRED, DATA IS UNCONFIRMED Confirmed by SYLVIA MARTINEZ, LEANDRO ([id number]), content editor ALEXANDER DELGADO ([id number]) on 02/09/2019 1:27:07 PM Referred By: RHETT Confirmed By:LEANDRO WARD MD
--- NOTE | 2019-02-04 09:58 | CASEMGMT ---
MERISSA CM ASSESSMENT NOTE: Chart review completed. 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 Dx: NSTEMI/had PCI 02/03/19. Discharge home on Plavix and ASA. No discharge planning needs identified. Tawanda BSN RN CM
== END 2019-02-04 09:44 | disposition home or self-care (01) | DRG 247 ==
LOC: ED 10:24 → PCU 14:23 → ICU 02-03 13:11
PROVIDERS: Internal Medicine Cardiovascular Disease; Emergency Provider Emergency Medicine; Family Provider Family Medicine; PCP Family Medicine; Visit Provider Internal Medicine
DX: I21.4 Non-ST elevation (NSTEMI) myocardial infarction (principal); K92.2 Gastrointestinal hemorrhage, unspecified; T82.855A Stenosis of coronary artery stent, initial encounter; Z95.5 Presence of coronary angioplasty implant and graft; I10 Essential (primary) hypertension; D86.0 Sarcoidosis of lung; E78.5 Hyperlipidemia, unspecified; L81.4 Other melanin hyperpigmentation; J44.9 Chronic obstructive pulmonary disease, unspecified; I25.10 Atherosclerotic heart disease of native coronary artery without angina pectoris; K21.9 Gastro-esophageal reflux disease without esophagitis
CPT/HCPCS: 36415; 71045; 80048; 80053; 80061; 81002; 84484; 85025; 85027; 85347; 85610; 85730; 92928; 93005; 93306; 93458; 94640; 99152; 99153; 99285; J7030; Q9957; A4216; C1725; C1769; C1874; C1887; C1894; C8929; C9600; J2405; Q9967

== ENCOUNTER 2019-03-11 08:59 | Day surgery (SDC) | payer MEDICARE, SELFPAY ==
[2019-01-22 14:37] VITALS: BMI 27.4
--- NOTE | 2019-01-29 06:30 | HP_ITS ---
Intake Vital Signs 01/22/19 Body Mass Index (BMI) 27.4 01/22/19 Height 5 ft 9 in 01/22/19 Weight: 183 lb 01/22/19 Body Mass Index (BMI) 27.0 01/22/19 Blood Pressure 125/55 H 01/22/19 Blood Pressure Location Rt brachial 01/22/19 Blood Pressure Position Sitting 01/22/19 Respiratory Rate 20 H 01/22/19 Pulse Rate 65 01/22/19 Pulse Source Monitor 01/22/19 Temperature 98.1 F 01/22/19 Temperature Source Oral 01/22/19 Pulse Ox 100 01/22/19 Oxygen Delivery Method room air Intake Visit Reasons: Positive Cologuard Chief Complaint: Routine f/u Ivf Embryologist Required: No Is patient in pain?: No Allergies No Known Allergies Allergy (Verified 01/22/19 14:36) Medications Nitroglycerin [Nitrostat] 0.4 mg SUBLINGUAL Q5M PRN 12/15/15 [History Confirmed 01/22/19] Omeprazole [Prilosec] 20 mg PO DAILY 12/15/15 [History Confirmed 01/22/19] Potassium Chloride [K-Dur] 10 meq PO DAILY 12/15/15 [History Confirmed 01/22/19] Folic Acid 1 mg PO DAILY 01/15/17 [History Confirmed 01/22/19] aspirin 81 mg tablet,delayed release 81 mg PO QDAY 11/06/17 [History Confirmed 01/22/19] multivitamin tablet 1 tab PO QDAY 12/12/17 [History Confirmed 01/22/19] atorvastatin 80 mg tablet 80 mg PO QDAY #90 tab 01/14/18 [Rx Confirmed 01/22/19] albuterol sulfate HFA 90 mcg/actuation aerosol inhaler 1 - 2 puff INHALATION Q4H PRN PRN #18 g 03/17/18 [Rx Confirmed 01/22/19] fluticasone 250 mcg-salmeterol 50 mcg/dose blistr powdr for inhalation 1 inh INHALATION BID #60 ea 03/17/18 [Rx Confirmed 01/22/19] clopidogrel 75 mg tablet 75 mg PO DAILY #90 tab 09/05/18 [Rx Confirmed 01/22/19] lisinopril 20 mg-hydrochlorothiazide 25 mg tablet 1 tab PO QDAY #90 tab 01/25/19 [Rx Confirmed 01/22/19] methotrexate sodium 2.5 mg tablet 15 mg PO QWEEK #28 tab 12/16/18 [Rx Confirmed 01/22/19] metoprolol tartrate 25 mg tablet 12.5 mg PO BID #90 tab 12/16/18 [Rx Confirmed 01/22/19] COUNT INCLUDES THE [facility] Medical History Essential hypertension (Chronic) COPD (chronic obstructive pulmonary disease) (Chronic) GERD (gastroesophageal reflux disease) (Chronic) Sarcoidosis of lung (Chronic) Right bundle branch block (Chronic) Hyperlipidemia (Chronic) Atherosclerosis of coronary artery of [place] heart without angina pectoris (Chronic) Dupuytren's contracture of left hand (Acute) Dupuytren's contracture of right hand (Acute) Positive colorectal cancer screening using Cologuard test (Acute) nonhealing surgical wound left palm (Acute) Abnormal CT scan, chest (Chronic) Hearing loss (Chronic) Localized edema (Chronic) Shortness of breath (Chronic) URI (upper respiratory infection) (Resolved) Hypertension (Inactive) Surgical History History of coronary artery stent placement (Chronic 01/16/17) Excision Dupuytren's Contracture Left Hand (Chronic) History of lung biopsy (Chronic) H/O hernia repair (Resolved) Family History Father CAD (coronary artery disease) Mother CAD (coronary artery disease) Social History Smoking Status: Never smoker second hand exposure: No alcohol intake: never substance use type: does not use ROS General General: No weight change, appetite, fatigue, colon cancer, breast cancer or weakness HEENT HEENT: No difficulty swallowing, eye injury, eye surgery, swollen glands or hoarseness Endo Endocrine: No thyroid disease, diabetes mellitus, thyroid cancer, Hair loss, heat intolerance or cold intolerance Skin Skin: No rash or changing moles Breast Breast: No left breast lump, right breast lump, nipple discharge, breast pain, abnormal mammogram, abnormal US or breast enlargement Musc Musculoskeletal: No back problems, arthritis, rheumatoid arthritis, gout or joint pain Cardio Cardiovascular: Yes high blood pressure and heart stent; no murmur, pacemaker, heart disease, atrial fibrillation, heart attack, palpitations, shortness of breat with exertion or chest pain Psych Psychiatric: No depression, anxiety or hearing voices Resp Respiratory: Yes shortness of breath, No sleep apnea, No cough, Yes COPD, Yes asthma, No emphysema, No wheezing Gastro Gastrointestinal: No abdominal pain, No nausea or vomiting, Yes diarrhea, No constipation, No blood in stool, Yes acid reflux, Yes hemorrhoids, No ulcers, No gallbladder problem, No black,tarry stools Manuel Hematologic: Yes blood thinners, No blood disorders, No bleeding, No anemia, No blood clots Neuro Neurologic: No weakness Exam Const General: no acute distress, well developed, well hydrated Orientation: oriented to person, oriented to place, oriented to time [facility] Head: normocephalic, atraumatic Ears: external ears normal Mouth: moist mucous membranes Eyes Sclera: sclerae normal Pupils: normal by confrontation Neck Neck: no lymphadenopathy noted Neck mass: No Thyroid: thyroid normal, symmetrical Chest Chest palpation & inspection: normal inspection of the chest Breast Palpation: No nipple discharge Resp Effort & Inspection: normal respiratory effort Auscultation: clear to auscultation bilaterally Percussion: percussion normal Cardio Rate: regular rate Rhythm: regular rhythm Heart Sounds: no murmurs GI Inspection: obesity Palpation: soft, no hepatosplenomegaly, no masses, nontender Rectal Exam: other Other: Rectal exam deferred. Extrem General: normal to inspection, no clubbing, cyanosis or edema Assessment & Plan Problems 1. Rectal hemorrhage K62.5 2. Gastroesophageal reflux disease, esophagitis presence not specified K21.9 Plan I have discussed the above with the patient. I have offered the patient colonoscopy as well as an EGD for evaluation. I have explained the risks/benefits of the procedure and described the procedure. I have discussed the risks with the patient, including but not limited to: infection, bleeding, perforation of the GI tract requiring emergency surgery, inability to complete the procedure, injury to any internal organs, complications of anesthesia, etc. - the patient understands and agrees to proceed. I have answered all the patient's questions to the patient's satisfaction and the patient has no further questions. The patient has been given instructions for the colon cleansing preparation. We will likely do random colon biopsies on the patient. Coding Level of Care Code Off vis,new,level 3 Diagnoses Rectal hemorrhage K62.5 Gastroesophageal reflux disease, esophagitis presence not specified K21.9 ??Esophagitis presence: esophagitis presence not specified
[2019-02-03 16:41] VITALS: BMI 29.3
[2019-02-12 15:20] VITALS: BMI 27.6
[2019-03-11 09:20] VITALS: BP 124/70; PULSE 60; RESP 18; TEMP 36.4; O2SAT 100; BMI 26.3
--- NOTE | 2019-03-11 10:06 | PCM.HP.BLA ---
History and Physical Date of Admission: 03/11/19 [facility] Medical Records Department [address] [place] [address] History and Physical 01/29/19 0630 MR#: [id number] Acct: [id number] Name: ROJELIO WARD Rep #: [id number] : 1945 73 From: Aman Luke MD PCP: Sarthak Mantilla MD Status: PRE [facility] Location: EN Intake Vital Signs 01/22/19 Body Mass Index (BMI) 27.4 01/22/19 Height 5 ft 9 in 01/22/19 Weight: 183 lb 01/22/19 Body Mass Index (BMI) 27.0 01/22/19 Blood Pressure 125/55 H 01/22/19 Blood Pressure Location Rt brachial 01/22/19 Blood Pressure Position Sitting 01/22/19 Respiratory Rate 20 H 01/22/19 Pulse Rate 65 01/22/19 Pulse Source Monitor 01/22/19 Temperature 98.1 F 01/22/19 Temperature Source Oral 01/22/19 Pulse Ox 100 01/22/19 Oxygen Delivery Method room air Intake Visit Reasons: Positive Cologuard Chief Complaint: Routine f/u Flatwork Tier Required: No Is patient in pain?: No Allergies No Known Allergies Allergy (Verified 01/22/19 14:36) Medications Nitroglycerin [Nitrostat] 0.4 mg SUBLINGUAL Q5M PRN 12/15/15 [History Confirmed 01/22/19] Omeprazole [Prilosec] 20 mg PO DAILY 12/15/15 [History Confirmed 01/22/19] Potassium Chloride [K-Dur] 10 meq PO DAILY 12/15/15 [History Confirmed 01/22/19] Folic Acid 1 mg PO DAILY 01/15/17 [History Confirmed 01/22/19] aspirin 81 mg tablet,delayed release 81 mg PO QDAY 11/06/17 [History Confirmed 01/22/19] multivitamin tablet 1 tab PO QDAY 12/12/17 [History Confirmed 01/22/19] atorvastatin 80 mg tablet 80 mg PO QDAY #90 tab 01/14/18 [Rx Confirmed 01/22/19] albuterol sulfate HFA 90 mcg/actuation aerosol inhaler 1 - 2 puff INHALATION Q4H PRN PRN #18 g 03/17/18 [Rx Confirmed 01/22/19] fluticasone 250 mcg-salmeterol 50 mcg/dose blistr powdr for inhalation 1 inh INHALATION BID #60 ea 03/17/18 [Rx Confirmed 01/22/19] clopidogrel 75 mg tablet 75 mg PO DAILY #90 tab 09/05/18 [Rx Confirmed 01/22/19] lisinopril 20 mg-hydrochlorothiazide 25 mg tablet 1 tab PO QDAY #90 tab 11/28/18 [Rx Confirmed 01/22/19] methotrexate sodium 2.5 mg tablet 15 mg PO QWEEK #28 tab 12/16/18 [Rx Confirmed 01/22/19] metoprolol tartrate 25 mg tablet 12.5 mg PO BID #90 tab 12/16/18 [Rx Confirmed 01/22/19] [facility] Medical History Essential hypertension (Chronic) COPD (chronic obstructive pulmonary disease) (Chronic) GERD (gastroesophageal reflux disease) (Chronic) Sarcoidosis of lung (Chronic) Right bundle branch block (Chronic) Hyperlipidemia (Chronic) Atherosclerosis of coronary artery of [place] heart without angina pectoris (Chronic) Dupuytren's contracture of left hand (Acute) Dupuytren's contracture of right hand (Acute) Positive colorectal cancer screening using Cologuard test (Acute) nonhealing surgical wound left palm (Acute) Abnormal CT scan, chest (Chronic) Hearing loss (Chronic) Localized edema (Chronic) Shortness of breath (Chronic) URI (upper respiratory infection) (Resolved) Hypertension (Inactive) Surgical History History of coronary artery stent placement (Chronic 01/16/17) Excision Dupuytren's Contracture Left Hand (Chronic) History of lung biopsy (Chronic) H/O hernia repair (Resolved) Family History Father CAD (coronary artery disease) Mother CAD (coronary artery disease) Social History Smoking Status: Never smoker second hand exposure: No alcohol intake: never substance use type: does not use ROS General General: No weight change, appetite, fatigue, colon cancer, breast cancer or weakness HEENT HEENT: No difficulty swallowing, eye injury, eye surgery, swollen glands or hoarseness Endo Endocrine: No thyroid disease, diabetes mellitus, thyroid cancer, Hair loss, heat intolerance or cold intolerance Skin Skin: No rash or changing moles Breast Breast: No left breast lump, right breast lump, nipple discharge, breast pain, abnormal mammogram, abnormal US or breast enlargement Musc Musculoskeletal: No back problems, arthritis, rheumatoid arthritis, gout or joint pain Cardio Cardiovascular: Yes high blood pressure and heart stent; no murmur, pacemaker, heart disease, atrial fibrillation, heart attack, palpitations, shortness of breat with exertion or chest pain Psych Psychiatric: No depression, anxiety or hearing voices Resp Respiratory: Yes shortness of breath, No sleep apnea, No cough, Yes COPD, Yes asthma, No emphysema, No wheezing Gastro Gastrointestinal: No abdominal pain, No nausea or vomiting, Yes diarrhea, No constipation, No blood in stool, Yes acid reflux, Yes hemorrhoids, No ulcers, No gallbladder problem, No black,tarry stools Manuel Hematologic: Yes blood thinners, No blood disorders, No bleeding, No anemia, No blood clots Neuro Neurologic: No weakness Exam Const General: no acute distress, well developed, well hydrated Orientation: oriented to person, oriented to place, oriented to time [facility] Head: normocephalic, atraumatic Ears: external ears normal Mouth: moist mucous membranes Eyes Sclera: sclerae normal Pupils: normal by confrontation Neck Neck: no lymphadenopathy noted Neck mass: No Thyroid: thyroid normal, symmetrical Chest Chest palpation & inspection: normal inspection of the chest Breast Palpation: No nipple discharge Resp Effort & Inspection: normal respiratory effort Auscultation: clear to auscultation bilaterally Percussion: percussion normal Cardio Rate: regular rate Rhythm: regular rhythm Heart Sounds: no murmurs GI Inspection: obesity Palpation: soft, no hepatosplenomegaly, no masses, nontender Rectal Exam: other Other: Rectal exam deferred. Extrem General: normal to inspection, no clubbing, cyanosis or edema Assessment & Plan Problems 1. Rectal hemorrhage K62.5 2. Gastroesophageal reflux disease, esophagitis presence not specified K21.9 Plan I have discussed the above with the patient. I have offered the patient colonoscopy as well as an EGD for evaluation. I have explained the risks/benefits of the procedure and described the procedure. I have discussed the risks with the patient, including but not limited to: infection, bleeding, perforation of the GI tract requiring emergency surgery, inability to complete the procedure, injury to any internal organs, complications of anesthesia, etc. - the patient understands and agrees to proceed. I have answered all the patient's questions to the patient's satisfaction and the patient has no further questions. The patient has been given instructions for the colon cleansing preparation. We will likely do random colon biopsies on the patient. Coding Level of Care Code Off vis,new,level 3 Diagnoses Rectal hemorrhage K62.5 Gastroesophageal reflux disease, esophagitis presence not specified K21.9 ??Esophagitis presence: esophagitis presence not specified 02/06/19 1350 <Electronically signed by Aman Luke MD> Date: Time: Aman Luke MD CC: Aman Luke MD; Sarthak Mantilla MD ~ Date Dictated: 01/29/19629 Date Transcribed: 1945 Drapery Cutter: Signed ____ I have re-examined the patient. There are no clinical changes since date of exam. ____ See Progress Notes for Changes ____ Dictated on Admission Date: Time: Signature: I have re-examined the patient. There are no clinical changes since date of exam.
[2019-03-11 10:43] VITALS: BP 100/63; BP 124/70; PULSE 54; RESP 18; TEMP 36.3; O2SAT 97
--- NOTE | 2019-03-11 10:44 | OP.ENDO_ITS ---
03/11/2019 Sarthak Mantilla [address] [place] [address] [place] [address] Re : Upper GI endoscopy procedure for [facility] Dear Dr. Mantilla This procedure was performed on Monday, March 11, 2019. My impressions and recommendations are as follows: Impressions : - Normal esophagus. - Erythematous mucosa in the prepyloric region of the stomach. - Normal. No specimens collected. Recommendations : - Discharge patient to home. - Resume previous diet. - Continue present medications. - Await pathology results. - Repeat upper endoscopy (date not yet determined) for screening purposes. - Return to my office in 1 week. My findings are described in the full procedure note, which is enclosed. If I can be of further assistance, please feel free to contact me at Doctor phone number(s): , Fax: [phone], Work: . Sincerely, MD Aman Zamora MD 03/11/2019 10:44:38 AM This report has been signed electronically.
[2019-03-11 10:45] VITALS: BP 124/70; BP 83/58; PULSE 51; RESP 18; O2SAT 96
[2019-03-11 10:50] VITALS: BP 124/70; BP 99/65; PULSE 55; RESP 18; O2SAT 95
--- NOTE | 2019-03-11 10:50 | OP.ENDO_ITS ---
03/11/2019 Sarthak Mantilla [address] [place] [address] [place] [address] Re : [facility] This procedure was performed on Monday, March 11, 2019. My impressions and recommendations are as follows: Impressions : - Diverticulosis in the sigmoid colon, in the descending colon and in the ascending colon. No specimens collected. - One 21 mm polyp in the rectum. No specimens collected. - The examination was otherwise normal. Recommendations : - Discharge patient to home. - Resume previous diet. - Continue present medications. - Repeat colonoscopy in 6 months for retreatment. - Return to my office in 1 week. My findings are described in the full procedure note, which is enclosed. If I can be of further assistance, please feel free to contact me at Doctor phone number(s): , Fax: [phone], Work: . Sincerely, MD Aman Zamora MD 03/11/2019 10:49:50 AM This report has been signed electronically.
[2019-03-11 10:55] VITALS: BP 124/70; BP 98/65; PULSE 57; RESP 18; TEMP 37.1; O2SAT 96
[2019-03-11 11:12] VITALS: BP 124/70
== END 2019-03-11 11:22 | disposition home or self-care (01) ==
LOC: EN 08:59 → AC 09:00
PROVIDERS: Family Provider Family Medicine; PCP Family Medicine; Referring Provider Surgery; Visit Provider Surgery
PROC: 0DJD8ZZ Inspection of Lower Intestinal Tract, Via Natural or Artificial Opening Endoscopic (ICD-10-PCS; CPT 45378; principal; 2019-03-11 09:55)
DX: K62.1 Rectal polyp (principal); K57.30 Diverticulosis of large intestine without perforation or abscess without bleeding; K62.5 Hemorrhage of anus and rectum; R19.7 Diarrhea, unspecified; K21.9 Gastro-esophageal reflux disease without esophagitis; J44.9 Chronic obstructive pulmonary disease, unspecified; D86.0 Sarcoidosis of lung; I25.10 Atherosclerotic heart disease of native coronary artery without angina pectoris; I45.10 Unspecified right bundle-branch block; I10 Essential (primary) hypertension; E78.5 Hyperlipidemia, unspecified; Z79.02 Long term (current) use of antithrombotics/antiplatelets; Z79.82 Long term (current) use of aspirin; Z79.899 Other long term (current) drug therapy; I25.2 Old myocardial infarction; Z95.5 Presence of coronary angioplasty implant and graft
CPT/HCPCS: 43235; 45378; J7120

== ENCOUNTER → 2019-06-04 | Outpatient (CLI) | payer MEDICARE, SELFPAY ==
[2018-12-16 09:57] VITALS: BMI 27.3
[2019-02-03 16:41] VITALS: BMI 29.3
[2019-04-01 15:09] VITALS: BMI 26.3
--- NOTE | 2019-06-04 13:46 | CT_ITS ---
STUDY: CT CHEST WITHOUT CONTRAST REASON FOR EXAM: Male, 73 years old. Follow-up lung nodule. RADIATION DOSAGE (If Supplied By Facility): CTDIvol = ( 10.82 ) mGy, DLP = ( 363.26 ) mGycm TECHNIQUE: Transaxial imaging was performed without the administration of intravenous contrast material. Multiplanar coronal and sagittal images were reformatted. Individualized dose optimization techniques were used for this CT. COMPARISON: Prior chest CT exam of June 10, 2018 FINDINGS: The specific nodule of concern on the preceding examinations has essentially resolved leaving only a minimal abnormal density. Stable mild apical pleural changes of the right lung. Stable fibrotic retraction of the left lower lobe particularly the superior segment. Stable area of focal fibrotic change in the anterior right lower lobe. Stable fibrotic change and substantial retraction of the left upper lobe and to a lesser extent the lingula. Stable pleural change and a calcified nodule in the posterior left lower lobe. Negative for pleural effusion. Normal heart and pericardium. Coronary calcifications and stent artifact right coronary artery. Stable multiple calcified nodes of the middle mediastinum and aortopulmonary window. Stable calcified lymph nodes of the hilar areas bilaterally. Normal unenhanced pulmonary arteries. Minimal plaque and elongation of the thoracic aorta. Mild degenerative changes of the thoracic spine. There is no demonstrated abnormality of the visualized upper abdomen. CT/Chest without Contrast IMPRESSION: Complete resolution of the right lower lobe nodule that was identified on the prior chest CT exam. Stable chronic lung changes with extensive scarring/fibrosis and retraction particularly in the left upper lobe and superior segment of the right lower lobe with other smaller areas of fibrotic change as described above. Stable calcified lymph nodes of the middle mediastinum, aortopulmonary window and hilar areas. Electronically Signed: Beba Stevenson MD at 17:08 EDT , Service support ,
--- NOTE | 2019-06-05 09:09 | PFT ---
INTRODUCTION: The patient is a 73-year-old male that presents for pulmonary function studies secondary to a diagnosis of COPD. Respiratory therapy reports good patient effort. Bronchodilators were used during testing. INTERPRETATION: Forced expiration spirometry demonstrates the presence of a moderate large airways obstructive ventilatory defect. There was no significant response to aerosolized bronchodilators. Spirograms are of good quality and do not plateau indicating slow emptying of the lungs. Body plethysmography was performed and reveals a decrease TLC to 4.42 L, 71% of predicted, indicative of a mild restrictive ventilatory impairment. The remainder of the lung volumes are symmetrically reduced. Diffusing capacity by single breath CO is within normal limits at 84% of predicted. When compared to previous pulmonary function studies dated November 2018, there has been a 29% reduction in total lung capacity along with a 20% reduction in DLCO. IMPRESSION: Irreversible moderate mixed ventilatory defect with preserved diffusing capacity. There has been worsening in the patient's total lung capacity and diffusing capacity since November 2018, as noted above.
== END | disposition home or self-care (01) ==
LOC: PSN 12:58
PROVIDERS: Family Provider Family Medicine; PCP Family Medicine; Referring Provider Nurse Practitioner Acute Care; Visit Provider Nurse Practitioner Acute Care
DX: D86.0 Sarcoidosis of lung (principal); J44.9 Chronic obstructive pulmonary disease, unspecified
CPT/HCPCS: 71250; 94060; 94726; 94729

== ENCOUNTER → 2019-12-08 | Outpatient (CLI) | payer MEDICARE, SELFPAY ==
[2019-02-03 16:41] VITALS: BMI 29.3
[2019-06-29 09:53] VITALS: BMI 26.3
[2019-07-02 14:52] VITALS: BMI 25.9
[2019-12-08 08:20] VITALS: PULSE 64; PULSE 65; PULSE 66; PULSE 69; PULSE 75; PULSE 80; PULSE 82; PULSE 83; O2SAT 91; O2SAT 92; O2SAT 94; O2SAT 95; O2SAT 96; O2SAT 97; O2SAT 98
--- NOTE | 2019-12-08 13:17 | PFTCOMP_ITS ---
COMPLETE PULMONARY FUNCTION TEST INTERPRETATION Brief HPI: Patient is a 74 year old male, currently under the care of myself, who presents to [facility] for complete pulmonary function tests secondary to diagnosis of sarcoidosis. Respiratory therapist reports good effort and reproducible results. Interpretation: Forced expiration spirometry shows a moderate large airways obstructive ventilatory defect with an FEV1 of 60% predicted. There is no significant bronchodilator response by strict ATS criteria. Spirograms are of good quality and plateau slowly, indicating slowly emptying areas of the lungs. The respiratory flow volume loop shows decreased expiratory flow rates at all lung volumes consistent with airway obstruction. Lung volumes by body plethysmography show a normal total lung capacity at 5.26 L, 85% predicted. All other lung volumes are at the lower limit of normal. Diffusion capacity by carbon monoxide is normal at 77% predicted. The airway resistance is elevated. Compared to previous pulmonary function tests from 06/04/2019, there is been a significant improvement in lung volumes. Impression: Irreversible moderate large airways obstructive ventilatory defect with some improvement compared to previous testing.
--- NOTE | 2019-12-08 13:20 | PCM.PSN.6M ---
PSN 6 Minute Walk Test - 6 Minute Walk Test 6 Minute Walk Test: 6 Minute Walk Test PSN:6-Minute Walk Test Start: 12/08/19 08:20 Freq: Status: Active Protocol: RESP.6MINW Document 12/08/19 08:20 [facility] (Rec: 12/08/19 08:29 [facility] [id number]) 6 Minute Walk Test Date Performed 12/08/19 Time Performed 08:15 Height 5 ft 9 in Weight: 80.739 kg Weight in Pounds 178.[address]: Salty Freeman Assistive device used: None Pre-test Oxygen Delivery Method Room Air Pulse Ox (%) 97 Pulse Rate (60-100 beats/min) 66 Dyspnea Dhara Scale (0-10) 0 1st minute Oxygen Delivery Method Room Air Pulse Ox (%) 96 Pulse Rate (60-100 beats/min) 69 Dyspnea Dhara Scale (0-10) 0 Number of Rests Taken 0 2nd minute Oxygen Delivery Method Room Air Pulse Ox (%) 95 Pulse Rate (60-100 beats/min) 64 Dyspnea Dhara Scale (0-10) 0 Number of Rests Taken 0 3rd minute Oxygen Delivery Method Room Air Pulse Ox (%) 94 Pulse Rate (60-100 beats/min) 75 Dyspnea Dhara Scale (0-10) 0 Number of Rests Taken 0 4th minute Oxygen Delivery Method Room Air Pulse Ox (%) 91 Pulse Rate (60-100 beats/min) 82 Dyspnea Dhara Scale (0-10) 1 Number of Rests Taken 0 5th minute Oxygen Delivery Method Room Air Pulse Ox (%) 92 Pulse Rate (60-100 beats/min) 80 Dyspnea Dhara Scale (0-10) 1 Number of Rests Taken 0 6th minute Oxygen Delivery Method Room Air Pulse Ox (%) 91 Pulse Rate (60-100 beats/min) 83 Dyspnea Dhara Scale (0-10) 1 Number of Rests Taken 0 Post-test Oxygen Delivery Method Room Air Pulse Ox (%) 98 Pulse Rate (60-100 beats/min) 65 Dyspnea Dhara Scale (0-10) 0 Full Laps Walked 16 Partial Lap, Number of Tiles Walked 42 Total Distance Walked (ft) 986 - Interpretation Interpretation: The patient was able to ambulate 986 feet over the course of 6 minutes on room air with no assistive devices or breaks. The patient did have significant desaturation from a baseline of 97% to as low as 91%, but no significant tachycardia was noted. These findings are consistent with a respiratory limitation exercise tolerance. - Recommendations Recommendations: No supplemental oxygen is indicated at this time. However, patient will need to be followed closely given level of desaturation.
== END | disposition home or self-care (01) ==
LOC: PSN 07:12
PROVIDERS: Family Provider Family Medicine; PCP Family Medicine; Referring Provider Internal Medicine Critical Care Medicine; Visit Provider Internal Medicine Critical Care Medicine
DX: D86.0 Sarcoidosis of lung (principal)
CPT/HCPCS: 94060; 94618; 94726; 94729

== ENCOUNTER → 2020-03-03 | Outpatient (CLI) | payer MEDICARE, SELFPAY ==
[2019-02-03 16:41] VITALS: BMI 29.3
[2020-01-14 10:04] VITALS: BMI 27.2
--- NOTE | 2020-03-03 09:57 | ECHOD_ITS ---
Reason For Study: CHF Procedure This was a 2D Doppler, Color Flow transthoracic echocardiogram. Exam performed in department. Left Ventricle Normal size and thickness. The estimated ejection fraction is 65 %. Stage 1 diastolic dysfunction. There are regional wall motion abnormalities as specified. Right Ventricle Mildly dilated right ventricle. Normal systolic function. Atria Normal left atrium. Normal right atrium. Normal atrial septum. Mitral Valve The mitral valve is structurally normal. No prolapse or stenosis seen. Trivial mitral valve insufficiency. Tricuspid Valve Normal tricuspid valve. Trivial tricuspid valve insufficiency. Right ventricular systolic pressure estimated to be 28 mmHg. Aortic Valve Trisinus/trileaflet aortic valve. Trivial aortic valve insufficiency. Pulmonic Valve Normal pulmonic valve. Great Vessels Normal aortic root. Normal arch. Normal inferior vena cava. Inferior vena cava collapse with sniff. Pericardium/Pleural No pericardial effusion. MMode/2D Measurements & Calculations LVIDd: 4.7 cm IVSd: 0.87 cm Ao root diam: 3.3 cm LVIDs: 2.9 cm LVPWd: 0.91 cm RVDd: 3.7 cm FS: 37.9 % LAV(MOD-bp): 52.1 ml EDV(MOD-sp4): 106.4 ml EDV(MOD-sp2): 97.8 ml LAV(MOD-bp) Indexed: 26.5 ml/m2 ESV(MOD-sp4): 44.1 ml EF(MOD-sp2): 61.9 % LAV(MOD-sp2): 50.6 ml EF(MOD-sp4): 58.6 % LAV(MOD-sp4): 52.6 ml SV(MOD-sp4): 62.3 ml SV(MOD-sp2): 60.6 ml LA A4 area: 19.0 cm2 LA dimension(2D): 4.0 cm RA A4 area: 16.4 cm2 Doppler Measurements & Calculations MV E max andrew: 73.2 cm/sec Lat Peak E' Andrew: 8.3 cm/sec Med Peak E' Andrew: 6.7 cm/sec MV A max andrwe: 88.2 cm/sec E/E' lat: 8.9 E/E' med: 10.9 MV E/A: 0.83 Ao V2 max: 139.6 cm/sec LV V1 max: 116.5 cm/sec PA V2 max: 99.5 cm/sec Ao max P.8 mmHg LV V1 max P.4 mmHg TR max andrew: 235.6 cm/sec TR max P.2 mmHg Interpretation Summary The estimated ejection fraction is 65 %. Stage 1 diastolic dysfunction. There are regional wall motion abnormalities as specified. Mildly dilated right ventricle. Trivial mitral valve insufficiency. Trivial tricuspid valve insufficiency. Right ventricular systolic pressure estimated to be 28 mmHg. Trivial aortic valve insufficiency. Compared to echo report dated 02/02/2019, LV function is markedly improved from 40% to 65%, and RVSP is improved from 40 to 28 mmHg. Ordering Physician: Aman Palma Referring Physician: Sarthak Mantilla Performed By: Varsha Boswell RDCS
== END | disposition home or self-care (01) ==
PROVIDERS: PCP Family Medicine; Referring Provider Internal Medicine Cardiovascular Disease; Visit Provider Internal Medicine Cardiovascular Disease
DX: I25.2 Old myocardial infarction (principal); I50.9 Heart failure, unspecified
CPT/HCPCS: 93306

== ENCOUNTER → 2020-11-23 12:27 | Outpatient (CLI) | payer MEDICARE, SELFPAY ==
[2019-02-03 16:41] VITALS: BMI 29.3
[2020-06-14 14:22] VITALS: BMI 27.2
[2020-08-29 09:53] VITALS: BMI 27.2
--- NOTE | 2020-11-23 14:41 | PFTCOMP ---
COMPLETE PULMONARY FUNCTION TEST INTERPRETATION Brief HPI: Patient is a 75 year old male, currently under the care of myself, who presents to [facility] for complete pulmonary function tests secondary to diagnosis of sarcoidosis. Respiratory therapist reports good effort and reproducible results. Interpretation: Forced expiration spirometry shows a moderate large airways obstructive ventilatory defect with an FEV1 of 69% predicted. There is no significant bronchodilator response by strict ATS criteria. Spirograms are of good quality and plateau slowly, indicating slowly emptying areas of the lungs. The respiratory flow volume loop shows decreased expiratory flow rates at all lung volumes consistent with airway obstruction. Lung volumes by body plethysmography show a decreased total lung capacity at 4.86 L, 78% predicted. All other lung volumes are reduced symmetrically. Diffusion capacity by carbon monoxide is normal at 95% predicted. The airway resistance is elevated. Compared to previous pulmonary function tests from 12/08/2019, there is been a significant improvement in DLCO by 22%. Impression: Irreversible moderate mixed ventilatory defect with normalization of DLCO compared to previous testing
== END ==
PROVIDERS: PCP Family Medicine; Referring Provider Internal Medicine Critical Care Medicine; Visit Provider Internal Medicine Critical Care Medicine
DX: D86.0 Sarcoidosis of lung (principal)
CPT/HCPCS: 94060; 94726; 94729

== ENCOUNTER → 2021-03-14 12:28 | Outpatient (CLI) | payer MEDICARE, SELFPAY ==
[2019-02-03 16:41] VITALS: BMI 29.3
[2021-02-27 10:59] VITALS: BMI 27.0
--- NOTE | 2021-03-14 12:31 | STE_ITS ---
Reason For Study: Dyspnea Stress Results Protocol: Salty Protocol Maximum Predicted HR: 146 bpm Target HR: 124 bpm % Maximum Predicted HR: 83 % DurationHeart Rate Stage (mm:ss) (bpm) BP Comment Baseline 62 138/72No Chest Pain Salty Protocol Stage I 3:00 100 164/70No Chest Pain; Mild Dyspnea Salty Protocol Stage II 3:00 116 178/70No Chest Pain; Mod Dyspnea; Exp Wheezes Salty Protocol Stage III 0:14 121 / No Chest Pain; Mod Dyspnea; Exp Wheezes Recovery 63 134/74No Chest Pain; No Dyspnea Stress Duration: 6:14 mm:ss Maximum Stress HR: 121 bpm METS: 7 Baseline Echocardiogram Findings Stress Echo Wall motion Data Resting WM Intermediate WM Stress WM ECHO/Stress Test Echo w/o Contrast Interpretation Summary Exercise stress echocardiogram. 75-year-old man with a history of coronary artery disease status post previous angioplasty and stenting of the left anterior descending artery. Stress protocol: Resting EKG demonstrates normal sinus rhythm with a rate of 56 bpm and right bu ndle branch block. Resting EKG demonstrates a blood pressure of 138/72 mmHg. The patient exercised according to the regular Salty protocol for a total duration of 6 minutes and 14 seconds. Leonardo knapp completed 14 seconds into stage III of the Salty protocol. The maximum heart rate was 121 bp m which was 82% of maximum predicted heart rate the maximum workload was 7 metabolic equivalents. At rest there was no ST or T wave changes noted to suggest ischemia and at peak exercise upsloping S T changes were noted with did not meet the criteria for ischemia. No clinical angina was noted howev er there was mild to moderate dyspnea noted with expiratory wheezes. During recovery dyspnea resolve d. The peak blood pressure was 178/70 mmHg. This was a good blood pressure response to exercise. Stress echocardiogram. Resting echocardiographic images demonstrated an estimated ejection fraction of 47% with a hypokinetic anterior wall and an akinetic apex. The rest of the [place] appeared to be normal. During stress there was more hypokinesis noted of the mid lateral wall, continued apic al akinesis noted and severe hypokinesis developing of the mid to distal anterior wall. The above fin dings are suggestive of mid to distal anterior ischemia as well as mid lateral wall ischemia. The es timated ejection fraction was noted to be 40%. Conclusion: Abnormal exercise stress echo with evidence of mid anterior, mid lateral ischem ia present. Failure to improve left ventricular function on stress imaging. Ordering Physician: Lolly Edwards Referring Physician: Eleazar Olson Performed By: Eufemia Miranda RDCS
== END ==
PROVIDERS: PCP Family Medicine; Referring Provider Physician Assistant Medical; Visit Provider Physician Assistant Medical
DX: R06.02 Shortness of breath (principal); R06.00 Dyspnea, unspecified
CPT/HCPCS: 93017; 93350

== ENCOUNTER 2021-03-20 07:26 | Day surgery (SDC) | payer MEDICARE, SELFPAY ==
[2019-02-03 16:41] VITALS: BMI 29.3
[2021-02-27 10:59] VITALS: BMI 27.0
--- NOTE | 2021-03-16 08:24 | RAD_ITS ---
STUDY: X-RAY CHEST REASON FOR EXAM: Male, 75 years old. Dyspnea TECHNIQUE: PA and lateral views of the chest. COMPARISON: Comparison is made with prior study dated 02/02/2019. FINDINGS: There is evidence of the increased irregular markings in the medial aspect of the left upper lobe medially in the suprahilar region. This is unchanged and most likely represents scarring. This also evidence of increased markings at the right infrahilar region. This has progressed as compared to prior study. Blunting of the right costophrenic angle anteriorly. Normal size heart. There are calcified mediastinal lymph nodes. Normal visualized pulmonary arteries. There is atherosclerotic tortuosity of the aortic arch and descending thoracic aorta. There is demineralization of the osseous structures. Normal visualized ribs, clavicles, and shoulders. There is no demonstrated abnormality of the visualized soft tissue structures of the upper abdomen. RAD/Chest PA and Lateral IMPRESSION: Hyperinflation. Findings suggestive of scarring in the medial superior aspect of the left upper lobe as well as at the right lung base. Electronically Signed: Jered Parrish MD at 12:31 EDT , Service support ,
[2021-03-16 08:52] LABS: Absolute Lymphocyte Count 0.85 X10^3/uL (0.83-4.51); Basophil# 0.05 X10^3/uL; Basophil% 0.8 % (0-1); Eosinophil# 0.25 X10^3/uL; Eosinophils% 4.2 % (0-5); Hematocrit 36.5 % (40-54); Hemoglobin 11.7 g/dL (13.0-16.5); Lymphocyte # 0.85 X10^3/ul (0.83-4.51); Lymphocyte % 14.1 % (19-41); Mean Corp Hgb Conc 32.1 g/dL (32-36); Mean Corpuscular Hgb 30.6 pg (27.0-32.0); Mean Corpuscular Volume 95.5 fL (80-94); Mean Platelet Vol. 10.2 fl (6.2-12.0); Monocyte# 0.81 X10^3/uL; Monocyte% 13.5 % (0-10); NRBC Flagged by Analyzer 0 % (0-5); Neutrophil # 4.04 X10^3/uL (2.7-7.7); Neutrophil % 67.1 % (47-70); Platelet Count 237 K/mm3 (150-450); RBC Distribution Width CV 12.9 % (11.6-14.6); RBC Distribution Width SD 44.2 fl (35.1-43.9); Red Blood Count 3.82 M/mm3 (4.6-6.2)
[2021-03-16 09:20] LABS: Anion Gap 6 (5-15); BUN 30 mg/dL (7-18); Calcium,Total 9.6 mg/dL (8.5-10.1); Chloride 107 mmol/L (98-107); EST Glomerular Filtration Rate 63 mL/min (>60); Est Glom Filt Rate - Afr Amer 76 mL/min (>60); Glucose 141 mg/dL (74-106); Potassium 4.1 mmol/L (3.5-5.1); Sodium Level 141 mmol/L (136-145)
[2021-03-17 08:04] VITALS: BMI 27.0
--- NOTE | 2021-03-20 10:33 | CL.D_ITS ---
Patient Name: ROJELIO WARD Study Date: 03/20/2021 Performing: Eleazar Olson MD Ht: 68.11 inches 173 cm : 1945 Wt: 178.57 lbs 81 kg Age: 75 Gender: male BSA: 1.95 PROCEDURE(S) PERFORMED DR93-YIR/COR/LV CLINICAL PROFILE AND INDICATIONS Indications: Suspected CAD Heart Failure: None Stress/Imaging Date: 03/14/21ress Echocardiogram: Positive High Risk CAD Presentations: Stable angina. CONCLUSIONS Coronary artery disease involving an ostial left main coronary artery with 40 to 50% stenosis, distal left main with 40% stenosis, and totally occluded mid left anterior descending artery segment. The circumflex artery has mild disease in the right coronary artery has mild in-stent stenosis. Ejection fraction is reduced with anterior apical hypokinesis present. RECOMMENDATIONS Will consider a viability scan to look at viability in the anterior wall. If this is noted to be via ble then we will consider PCI to the left main and ostium of the diagonal vessel. DESCRIPTION OF PROCEDURE The patient arrived to the procedure lab. The risks and benefits of the procedure as well as a full d escription of our services here and current unavailability of surgical backup were fully explained to the patient and/or their significant other prior to the catheterization. The Timeout was completed, verifying the correct patient and procedure. The patient's procedural site was prepped and draped in the usual fashion. Local anesthetic was given subcutaneously to right radial region with Lidocaine 2% . Using a modified Seldinger technique, arterial access was obtained via the right radial artery, a 6 Fr sheath was inserted. Left Coronary Artery selective angiography was performed in multiple views u sing a 5 Fr. 4.0 [place] catheter. Right Coronary Artery selective angiography was then performed in mu ltiple views using a 5 Fr. 4.0 [place] catheter. Left Ventriculography was performed in OROPEZA projection using a 5 Fr. [place] catheter. LV to AO pullback pressures were then recorded.The arterial sheath was pulled and a TR Band was applied for hemostasis CORONARY ANGIOGRAPHY DOMINANCE: Right Dominant LEFT HEART ASSESSMENT Left Ventricular Ejection Fraction: by LV Gram 40 % Anterior Hypokinesis - Moderate. Apical Hypokinesis - Moderate Depressed Left Ventricular systolic function LEFT MAIN: Mild calcification, Ostial 40 to 50% stenosis and distal 40% stenosis LEFT ANTERIOR DESCENDING ARTERY: PROX LAD: Previously placed stent is patent MID LAD: Previously placed stent is occluded DIAGONAL 1: Ostial - 40 % Stenosis CIRCUMFLEX ARTERY: Mild luminal irregularities RIGHT CORONARY ARTERY: MID RCA: 30 % Stenosis DISTAL RCA: Mild luminal irregularities COMPLICATIONS No Complications PROCEDURE MEDICATIONS Versed 1 mg IV Fentanyl 50 mcg IV Oxygen: 2 L/min via nasal cannula Heparin given IA 03/20/2021 10:04:56 SUMMARY OF HEMODYNAMIC DATA Time AIR REST ECG 07:47:30 AO 128/68 (93) SA 10:08:23 LV 153/16, 27 10:16:44 LV 154/17, 26 10:16:51 LV 140/17, 28 10:17:31 LV 139/18, 28 10:17:37 LVp 143/20, 28 10:17:41 AOp 150/74 (105) 10:17:46 10:28:46 Signed By Eleazar Olson MD On 03/20/2021 10:32:45 AM Eleazar Olson MD
== END 2021-03-20 12:25 | disposition home or self-care (01) ==
LOC: CLSP 07:27
PROVIDERS: PCP Family Medicine; Referring Provider Internal Medicine Cardiovascular Disease; Visit Provider Internal Medicine Cardiovascular Disease
DX: I25.119 Atherosclerotic heart disease of native coronary artery with unspecified angina pectoris (principal); I42.9 Cardiomyopathy, unspecified; R06.02 Shortness of breath; J44.9 Chronic obstructive pulmonary disease, unspecified; K21.9 Gastro-esophageal reflux disease without esophagitis; I10 Essential (primary) hypertension; E78.5 Hyperlipidemia, unspecified; Z95.5 Presence of coronary angioplasty implant and graft; Z79.02 Long term (current) use of antithrombotics/antiplatelets; Z79.899 Other long term (current) drug therapy; Z79.51 Long term (current) use of inhaled steroids
CPT/HCPCS: 36415; 71046; 80048; 85025; 93458; 99152; 99153; J7040; Q9967; C1769; C1894

== ENCOUNTER → 2021-03-29 07:26 | Outpatient (CLI) | payer MEDICARE, SELFPAY ==
[2019-02-03 16:41] VITALS: BMI 29.3
[2021-03-17 08:04] VITALS: BMI 27.0
--- NOTE | 2021-03-30 16:50 | STRESSREP ---
Stress Test Report Rest redistribution viability scan. 75-year-old man with a history of coronary artery disease status post recent catheterization demonstrating a subtotally occluded left anterior descending artery. Left circumflex artery and right coronary artery are patent. 4.3 mCi of thallium 201 was injected at rest with imaging performed at rest and 3 hours. Images were reconstructed and compared in the short axis vertical long and horizontal long axis. Results: Imaging results demonstrated an medium size defect noted in the distal anterior wall to the apex. This was present on the rest and redistribution scans to a similar extent. The rest of the anterior wall lateral wall septum and inferior wall were well perfused. The above demonstrated no improvement in the 3-hour scan demonstrating a previous anterior infarct with no viability noted. Conclusion: Fixed anterior apical defect with no viability seen.
== END ==
PROVIDERS: PCP Family Medicine; Referring Provider Internal Medicine Cardiovascular Disease; Visit Provider Internal Medicine Cardiovascular Disease
DX: I25.2 Old myocardial infarction (principal); I25.10 Atherosclerotic heart disease of native coronary artery without angina pectoris; I25.5 Ischemic cardiomyopathy; I10 Essential (primary) hypertension; Z95.5 Presence of coronary angioplasty implant and graft
CPT/HCPCS: 78451; A9505

== ENCOUNTER → 2021-04-24 07:46 | Outpatient (CLI) | payer MEDICARE, SELFPAY ==
[2019-02-03 16:41] VITALS: BMI 29.3
[2020-12-01 12:34] VITALS: BMI 27.5
[2021-03-17 08:04] VITALS: BMI 27.0
--- NOTE | 2021-04-24 07:49 | CT_ITS ---
STUDY: CT CHEST WITHOUT CONTRAST REASON FOR EXAM: Male, 75 years old. sarcoidosis of lung RADIATION DOSAGE (If Supplied By Facility): CTDIvol = ( 9.42 ) mGy, DLP = ( 341.22 ) mGycm TECHNIQUE: Transaxial imaging was performed without the administration of intravenous contrast material. Individualized dose optimization techniques were used for this CT. COMPARISON: 06/04/2019 FINDINGS: Again noted. Fibrotic scar involving the supra hilar area on the left side there are multiple calcified lymph nodes in the hilar areas as well as infracarinal location that showed no significant change. The heart is not enlarged but there are coronary stents. Moderate hypertrophic changes involving the dorsal spine There is small hiatal hernia. The right lung showed some scar formation as well. CT/Chest without Contrast IMPRESSION: Significant. Fibrotic scar formation involving both lung mckeon more so on the left with a central calcified lymph nodes in the hilar areas and infracarinal location without significant change since the previous examination of June 2019 Electronically Signed: Mary Kim, at 11:34 EDT Tel , Service support ,
--- NOTE | 2021-04-24 15:02 | PFTCOMP ---
COMPLETE PULMONARY FUNCTION TEST INTERPRETATION Brief HPI: Patient is a 75 year old male, currently under the care of myself, who presents to [facility] for complete pulmonary function tests secondary to diagnosis of sarcoidosis. Respiratory therapist reports good effort and reproducible results. Interpretation: Forced expiration spirometry shows a moderate large airways obstructive ventilatory defect with an FEV1 of 60% predicted. There is no significant bronchodilator response by strict ATS criteria. Spirograms are of good quality and plateau slowly, indicating slowly emptying areas of the lungs. The respiratory flow volume loop shows decreased expiratory flow rates at all lung volumes consistent with airway obstruction. Lung volumes by body plethysmography show a normal total lung capacity at 6.92 L, 111% predicted. All other lung volumes are within normal limits. Diffusion capacity by carbon monoxide is normal at 95% predicted. The airway resistance is elevated. Compared to previous pulmonary function tests from 11/23/2020, there is been a significant improvement in lung volumes. Impression: Irreversible moderate large airways obstructive ventilatory defect with preserved lung volumes and diffusing capacity. There has been improvement compared to November.
== END ==
PROVIDERS: PCP Family Medicine; Referring Provider Nurse Practitioner Acute Care; Visit Provider Nurse Practitioner Acute Care
DX: J44.9 Chronic obstructive pulmonary disease, unspecified (principal); D86.0 Sarcoidosis of lung
CPT/HCPCS: 71250; 94060; 94726; 94729

== ENCOUNTER 2021-08-09 10:01 | Outpatient (CLI) | payer MEDICARE, SELFPAY ==
[2019-02-03 16:41] VITALS: BMI 29.3
[2021-08-09 10:18] VITALS: BP 130/57; PULSE 63; RESP 18; TEMP 36.9; O2SAT 97; BMI 26.2
[2021-08-09] MEDS: 0.9% Saline Lock 10 ML Syringe IV (10:31)
[2021-08-09 10:59] VITALS: BP 123/57; PULSE 62; RESP 18; TEMP 36.9; O2SAT 96
[2021-08-09 11:59] VITALS: BP 110/64; PULSE 60; RESP 16; TEMP 36.9; O2SAT 99
== END 2021-08-09 11:59 | disposition home or self-care (01) ==
LOC: MS3OUT 10:01 → MS3 10:02
PROVIDERS: PCP Family Medicine; Referring Provider Nurse Practitioner Adult Health; Visit Provider Nurse Practitioner Adult Health
DX: Z23 Encounter for immunization (principal); U07.1 COVID-19
CPT/HCPCS: J7050; M0243; A4216; Q0244

== ENCOUNTER → 2022-04-04 | Outpatient (CLI) | payer MEDICARE, SELFPAY ==
[2019-02-03 16:41] VITALS: BMI 29.3
--- NOTE | 2022-04-05 10:15 | PFT ---
INTRODUCTION: The patient is a 76-year-old male that presents for pulmonary function studies secondary to a diagnosis of sarcoidosis of the lung. Respiratory therapy reported good patient effort. Bronchodilators were used during testing. INTERPRETATION: Forced expiration spirometry demonstrates the presence of a moderately severe large airways obstructive ventilatory defect. There is no significant response to aerosolized bronchodilators. Spirograms are of good quality but do not plateau indicating slow emptying of the lungs. Body plethysmography was performed and revealed a decreased TLC to 3.4 L, 55% of predicted, indicative of a severe restrictive ventilatory impairment. Diffusing capacity by single breath CO is within normal limits. IMPRESSION: Irreversible moderately severe mixed ventilatory defect with preserved diffusing capacity.
== END | disposition home or self-care (01) ==
LOC: PSN 12:53
PROVIDERS: PCP Family Medicine; Visit Provider Nurse Practitioner Acute Care
DX: D86.0 Sarcoidosis of lung (principal)
CPT/HCPCS: 94060; 94726; 94729

== ENCOUNTER → 2022-04-20 | Outpatient (CLI) | payer MEDICARE, SELFPAY ==
[2019-02-03 16:41] VITALS: BMI 29.3
--- NOTE | 2022-04-20 14:50 | CT_ITS ---
STUDY: CT CHEST WITHOUT CONTRAST REASON FOR EXAM: Male, 76 years old. 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 Multiplanar coronal and sagittal images were reformatted. Individualized dose optimization techniques were used for this CT. COMPARISON: Comparison is made with prior study dated 04/24/2021. FINDINGS: CHEST 1 significant, heterogeneous scar with bronchiectasis is seen in the left suprahilar region. This has decreased in size. It presently measures 3.7 cm x 2.9 cm. Is also evidence of increased markings in the right infrahilar region extending into the right lower lobe. There has been essentially no change. There is no demonstrated pleural abnormality. There are calcifications of the coronary arteries. There are multiple calcified mesenteric and hilar lymph nodes. Normal unenhanced pulmonary arteries. Normal aorta arch and descending thoracic aorta. There are multi-level degenerative changes of the thoracic spine. There is no demonstrated abnormality of the visualized upper abdomen. CT/Chest without Contrast IMPRESSION: Persistent bilateral scarring and infiltrates. The irregular scar in the right upper lobe has decreased in size. The right perihilar and right lower lobe areas of scarring are unchanged. Multiple mediastinal and bilateral hilar calcified lymph nodes. Electronically Signed: Jered Parrish MD at 15:23 EDT ,
== END | disposition home or self-care (01) ==
LOC: CT 14:48
PROVIDERS: PCP Family Medicine; Referring Provider Nurse Practitioner Acute Care; Visit Provider Nurse Practitioner Acute Care
DX: D86.0 Sarcoidosis of lung (principal)
CPT/HCPCS: 71250

== ENCOUNTER → 2022-11-26 | Outpatient (CLI) | payer MEDICARE, SELFPAY ==
[2019-02-03 16:41] VITALS: BMI 29.3
--- NOTE | 2022-11-26 15:01 | STRESSREP_ITS ---
Stress Test Report Pharmacologic myocardial perfusion stress test. 77-year-old man with a history of coronary artery disease Resting EKG demonstrates sinus rhythm with a right bundle branch block with a rate of 70 bpm. Resting blood pressure is 154/78 mmHg. 0.4 mg of regadenoson was infused per usual protocol followed by rapid intravenous saline flush injec tion. Continuous EKG monitoring was performed. The maximum heart rate was 88 bpm which was 61% of max impacted heart rate the maximum workload was 1 metabolic equivalent. At rest there were no ST or T wave changes noted to suggest ischemia and at peak infusion nonspecific ST changes were noted which did not meet the criteria for ischemia. No clinical angina is noted. The final blood pressure was 148/72 mmHg. Myocardial perfusion protocol. 11.8 mCi of technetium 99m sestamibi was injected at rest. 0.4 mg of regadenoson was infused per usual protocol. At peak infusion 34.5 mCi of techn etium 99m sestamibi was injected stress images were obtained stress and rest images were reconstructed and compared in the short axis vertical long and horizontal long axis. Gated images were not obtained. Perfusion SPECT analysis: Review of the stress images demonstrate normal uptake of tracer noted in all areas of the myocardium, except for the distal anterior wall and apex with a perfusion defect. The resting images similar demonstrated normal uptake of tracer noted in all areas of the myocardium except for the distal anterior wall and apex with a perfusion defect but slightly smaller suggesting mild skip- infarct ischemia with a previous apical infarct. Conclusion: Mildly abnormal pharmacologic myocardial perfusion stress test. The above does not appear to be significantly different from the prior stress test.
== END | disposition home or self-care (01) ==
LOC: CVS 06:08
PROVIDERS: PCP Family Medicine; Visit Provider Internal Medicine Cardiovascular Disease
DX: Z01.818 Encounter for other preprocedural examination (principal); J44.9 Chronic obstructive pulmonary disease, unspecified; D86.0 Sarcoidosis of lung; I25.119 Atherosclerotic heart disease of native coronary artery with unspecified angina pectoris; R07.9 Chest pain, unspecified; R06.02 Shortness of breath; I25.5 Ischemic cardiomyopathy; Z95.5 Presence of coronary angioplasty implant and graft; I10 Essential (primary) hypertension; E78.5 Hyperlipidemia, unspecified; I45.10 Unspecified right bundle-branch block
CPT/HCPCS: 78452; 93017; A9500; A4216; J2785

== ENCOUNTER → 2022-11-27 | Outpatient (CLI) | payer MEDICARE, SELFPAY ==
[2019-02-03 16:41] VITALS: BMI 29.3
--- NOTE | 2022-11-27 | IMM_PTH ---
PATIENT: ROJELIO WARD LOC: [facility] U#:[id number] AGE/SX: 77/M ROOM: RE11/27/[address]: Dr. Giles Perla MD : 1945 BED: DIS: 11/27/2022 SPEC #: [id number] RECD: 11/29/22 12:20 STATUS: SRUTHI REQ #: [id number] YOSSI: 11/27/22 00:[address]: Giles Perla DEPT: IMMUNOHISTOCHEMISTRY RECD BY: Rachel Nielsen ENTERED: 11/29/22 12:21 SP TYPE: IMMUNO OTHR DR: Dr. Kel Nieto MD Tissues: C - PROSTATE RIGHT D - PROSTATE LEFT Procedures: 34BE12 (add) P40 (add) 34BE12 (initial) PHYSICIAN & INSTITUTION [place] [id number] SPECIMEN INFORMATION: Tissue Source: C - Right prostate, base, core biopsy, D - Left prostate, apex, core biopsy Clinical Info: Elevated PSA Specimen Number: [id number] C & D CPT code: 49327, 99829 x3 METHODOLOGY: Deparaffinized sections of prefer/formalin-fixed tissue or PAP/DQ stained slides are incubated with monoclonal/polyclonal antibodies/oligonucleotide probes. Localization is made via biotin free immunoperoxidase method. Appropriate controls are performed and reacted as expected. Results on target cell population are indicated in the following table: RESULTS: ANTIBODY / CLONE RESULT Block C 34BE12 (34BE12) positive P40 (BC28) positive Block D 34BE12 (34BE12) positive P40 (BC28) positive These tests were developed and their performance characteristics determined by [facility]. They may not have been cleared or approved by the U.S. Food and Drug Administration. The FDA has determined that such clearance or approval is not necessary. The above immunohistochemical/dualISH markers are ordered and reviewed by the Pathologist. INTERPRETATION: C. Right prostate, base, core biopsy: Benign prostatic tissue. D. Left prostate, apex, core biopsy: Benign prostatic tissue. AM:sallie 11/30/2022
--- NOTE | 2022-11-27 11:15 | PROSBIL_PTH ---
PATIENT: ROJELIO WARD LOC: [facility] U#:[id number] AGE/SX: 77/M ROOM: RE11/27/[address]: Dr. Giles Perla MD : 1945 BED: DIS: 11/27/2022 SPEC #: [id number] RECD: 11/27/22 16:13 STATUS: SRUTHI REAleksandr #: [id number] YOSSI: 11/27/22 11:[address]: Giles Perla DEPT: SURGICAL PATHOLOGY RECD BY: Jemma Guerra ENTERED: 11/28/22 08:36 SP TYPE: PROST BX BURT DR: Dr. Kel Nieto MD Tissues: A - PROSTATE RIGHT B - PROSTATE RIGHT C - PROSTATE RIGHT D - PROSTATE LEFT E - PROSTATE LEFT F - PROSTATE LEFT Procedures: PROSTATE BX HEADER OPERATION: Prostate biopsy PRE-OP DIAGNOSIS: Elevated PSA TISSUE SUBMITTED: A - Right apex, B - Right mid, C - Right base, D - Left apex, E - Left mid, F - Left base MICROSCOPIC DIAGNOSIS A. Right prostate, apex, core biopsy: Glandular atrophy and mild chronic inflammation. B. Right prostate, mid, core biopsy: Mild chronic inflammation. C. Right prostate, base, core biopsy: Mild chronic inflammation with focal acute inflammation. Glandular atrophy. See comment. D. Left prostate, apex, core biopsy: Focal high-grade prostatic intraepithelial neoplasia (HGPIN). Mild chronic inflammation. See comment. E. Left prostate, mid, core biopsy: Glandular atrophy and mild chronic inflammation. F. Left prostate, base, core biopsy: Chronic inflammation and focal acute inflammation. Glandular atrophy. AM:sallie 11/29/2022 COMMENT C & D. Immunohistochemistry ([id number]) supports the above diagnosis. MICROSCOPIC DESCRIPTION Slides are reviewed. GROSS DESCRIPTION A - Received is one container designated prostate, right apex. The specimen consists of two elongated fragments of light mg-white soft tissue each measuring 0.8 cm in length and 0.1 cm in diameter. The specimen is totally submitted in one cassette. B - Received is one container designated prostate, right mid. The specimen consists of four elongated fragments of light mg-white soft tissue measuring 0.5 to 1 cm in length and 0.1 cm in diameter. The specimen is totally submitted in one cassette. C - Received is one container designated prostate, right base. The specimen consists of three elongated fragments of light mg-white soft tissue measuring 0.6 to 1.2 cm in length and 0.1 cm in diameter. The specimen is totally submitted in one cassette. D - Received is one container designated prostate, left apex. The specimen consists of two elongated fragments of light mg-white soft tissue each measuring 1.1 cm in length and 0.1 cm in diameter. The specimen is totally submitted in one cassette. E - Received is one container designated prostate, left mid. The specimen consists of two elongated fragments of light mg-white soft tissue each measuring 1.2 cm in length and 0.1 cm in diameter. The specimen is totally submitted in one cassette. F - Received is one container designated prostate, left base. The specimen consists of two elongated fragments of light mg-white soft tissue each measuring 1.6 cm in length and 0.1 cm in diameter. The specimen is totally submitted in one cassette. / SJ:rg 11/28/2022 TC:2 CPT: G0146
== END | disposition home or self-care (01) ==
LOC: LABSPEC 16:26
PROVIDERS: PCP Family Medicine; Visit Provider Urology
DX: N42.31 Prostatic intraepithelial neoplasia (principal); R97.20 Elevated prostate specific antigen [PSA]; N41.9 Inflammatory disease of prostate, unspecified; N42.89 Other specified disorders of prostate
CPT/HCPCS: 88305; 88341; 88342; G0416

== ENCOUNTER → 2023-02-01 | Outpatient (CLI) | payer MEDICARE, SELFPAY ==
[2019-02-03 16:41] VITALS: BMI 29.3
[2023-02-01 16:31] LABS: Absolute Lymphocyte Count 1.21 X10^3/uL (0.83-4.51); Absolute Neutrophil Count 4.7 X10^3/uL (2.0-7.7); Basophil# 0.05 X10^3/uL; Basophil% 0.7 % (0-1); Eosinophil# 0.21 X10^3/uL; Hematocrit 37.6 % (40-54); Hemoglobin 12.7 g/dL (13.0-16.5); Lymphocyte # 1.21 X10^3/ul (0.83-4.51); Lymphocyte % 17.1 % (19-41); Mean Corp Hgb Conc 33.8 g/dL (32-36); Mean Corpuscular Hgb 31.4 pg (27.0-32.0); Mean Corpuscular Volume 93.1 fL (80-94); Mean Platelet Vol. 9.9 fl (6.2-12.0); Monocyte# 0.86 X10^3/uL; Monocyte% 12.1 % (0-10); NRBC Flagged by Analyzer 0 % (0-5); Neutrophil # 4.73 X10^3/uL (2.7-7.7); Neutrophil % 66.8 % (47-70); Platelet Count 238 K/mm3 (150-450); RBC Distribution Width CV 12.9 % (11.6-14.6); RBC Distribution Width SD 44.2 fl (35.1-43.9); Red Blood Count 4.04 M/mm3 (4.6-6.2); White Blood Count 7.1 K/mm3 (4.4-11.0)
[2023-02-01 17:04] LABS: BNP,B-Type NATRIURETIC PEPTIDE 120.9 pg/mL (0-100)
[2023-02-01 17:06] LABS: Anion Gap 4 (5-15); BUN 21 mg/dL (7-18); BUN/Creat Ratio 18.4 RATIO (10-20); Calcium,Total 9.3 mg/dL (8.5-10.1); Chloride 104 mmol/L (98-107); Creatinine, Serum 1.14 mg/dL (0.70-1.30); EST Glomerular Filtration Rate 66 mL/min (>60); Est Glom Filt Rate - Afr Amer 80 mL/min (>60); Glucose 154 mg/dL (74-106); Potassium 4.5 mmol/L (3.5-5.1); Sodium Level 136 mmol/L (136-145)
== END | disposition home or self-care (01) ==
LOC: LAB 16:14
PROVIDERS: PCP Family Medicine; Visit Provider Nurse Practitioner Gerontology
DX: R06.02 Shortness of breath (principal)
CPT/HCPCS: 36415; 80048; 83880; 85025

== ENCOUNTER → 2023-03-04 | Outpatient (CLI) | payer MEDICARE, SELFPAY ==
[2019-02-03 16:41] VITALS: BMI 29.3
--- NOTE | 2023-03-04 12:52 | ECHOD_ITS ---
Reason For Study: SOB Procedure This was a 2D Doppler, Color Flow transthoracic echocardiogram. Exam performed in department. Left Ventricle Normal LV size. The estimated ejection fraction is 60 %. Mild segmental systolic dysfunction (see wall motion). Stage 1 diastolic dysfunction. [place] : Severely Hypokinetic. Anterior [place] : Severely Hypokinetic. There are regional wall motion abnormalities as specified. Right Ventricle Normal RV size. Normal systolic function. Atria Normal left atrium. Normal right atrium. Mitral Valve Bileaflet diffuse mitral valve thickening. Mild-Moderate (1-2+) eccentric mitral valve insufficiency. Tricuspid Valve Normal tricuspid valve. Mild (1+) tricuspid valve insufficiency. Pulmonary artery systolic pressure is 44 mmHg. Aortic Valve Trisinus/trileaflet aortic valve. Mild (1+) eccentric aortic valve insufficiency. Pulmonic Valve Normal pulmonic valve. Great Vessels Normal aortic root. The pulmonary artery is normal size. Normal inferior vena cava. Pericardium/Pleural Trivial pericardial effusion. MMode/2D Measurements & Calculations LVIDd: 5.0 cm IVSd: 0.96 cm Ao root diam: 3.2 cm LVIDs: 3.3 cm LVPWd: 0.98 cm RVDd: 4.0 cm FS: 33.1 % LAV(MOD-bp): 54.7 ml LVAd ap4: 39.9 cm2 SV(MOD-sp4): 81.2 ml LAV(MOD-bp) Indexed: 28.2 ml/m2 LVLd ap4: 8.8 cm LAV(MOD-sp2): 51.7 ml EDV(MOD-sp4): 147.1 ml LAV(MOD-sp4): 57.6 ml EDV(sp4-el): 153.9 ml LVAs ap4: 25.6 cm2 LVLs ap4: 8.0 cm ESV(MOD-sp4): 66.0 ml ESV(sp4-el): 69.1 ml EF(MOD-sp4): 55.2 % EF(sp4-el): 55.1 % SV(sp4-el): 84.8 ml LA A4 area: 20.4 cm2 LA dimension(2D): 4.2 cm RA A4 area: 19.9 cm2 Time Measurements MV dec time: 0.28 sec Doppler Measurements & Calculations MV E max andrew: 79.5 cm/sec Lat Peak E' Andrew: 8.1 cm/sec Med Peak E' Andrew: 7.2 cm/sec MV A max andrew: 89.5 cm/sec E/E' lat: 9.8 E/E' med: 11.1 MV E/A: 0.89 Ao V2 max: 132.9 cm/sec AI max andrew: 420.5 cm/sec LV V1 max: 101.3 cm/sec Ao max P.1 mmHg AI max P.7 mmHg LV V1 max P.1 mmHg AI dec slope: 198.8 cm/sec2 AI P1/2t: 619.3 msec PA V2 max: 93.1 cm/sec TR max andrew: 314.1 cm/sec TR max P.5 mmHg ECHO/Echo Complete Interpretation Summary Normal LV size. The estimated ejection fraction is 60 %. Mild segmental systolic dysfunction (see wall motion). Stage 1 diastolic dysfunction. Mild-Moderate (1-2+) eccentric mitral valve insufficiency. Mild (1+) tricuspid valve insufficiency. Mild (1+) eccentric aortic valve insufficiency. Ordering Physician: Calvin Pepper/Eleazar Olson Referring Physician: GEMMA PELAYO Performed By: Eufemia Miranda RDCS
== END | disposition home or self-care (01) ==
LOC: CVS 12:49
PROVIDERS: PCP Family Medicine; Referring Provider Nurse Practitioner Gerontology; Visit Provider Nurse Practitioner Gerontology
DX: R06.02 Shortness of breath (principal)
CPT/HCPCS: 93306

== ENCOUNTER → 2023-04-25 | Outpatient (CLI) | payer MEDICARE, SELFPAY ==
[2019-02-03 16:41] VITALS: BMI 29.3
--- NOTE | 2023-04-26 05:56 | PFTCOMP_ITS ---
COMPLETE PULMONARY FUNCTION TEST INTERPRETATION Brief HPI: Patient is a 77-year-old male, currently under the care of Jennifer Azevedo, who presents to [facility] for complete pulmonary function tests secondary to diagnosis of sarcoidosis. Respiratory therapist reports good effort and reproducible results. Interpretation: Forced expiration spirometry shows a moderate large airways obstructive ventilatory defect with an FEV1 of 63% predicted. There is no significant bronchodilator response by strict ATS criteria. Spirograms are of good quality and plateau slowly, indicating slowly emptying areas of the lungs. The respiratory flow volume loop shows decreased expiratory flow rates at all lung volumes consistent with airway obstruction. Lung volumes by body plethysmography show a decreased total lung capacity at 3.44 L, 56% predicted. All other lung volumes are reduced symmetrically. Diffusion capacity by carbon monoxide is normal at 73% predicted. The airway resistance is severely elevated. Compared to previous pulmonary function tests from 04/04/2022, there is been a significant decrease in DLCO by 15%. Impression: Irreversible moderately severe mixed ventilatory defect with some worsening compared to previous
== END | disposition home or self-care (01) ==
PROVIDERS: PCP Family Medicine; Referring Provider Nurse Practitioner Acute Care; Visit Provider Nurse Practitioner Acute Care
DX: D86.0 Sarcoidosis of lung (principal)
CPT/HCPCS: 94060; 94726; 94729

== ENCOUNTER → 2023-05-02 | Outpatient (CLI) | payer MEDICARE, SELFPAY ==
[2019-02-03 16:41] VITALS: BMI 29.3
[2023-05-02 17:13] LABS: Absolute Neutrophil Count 6.2 X10^3/uL (2.0-7.7); Basophil# 0.04 X10^3/uL; Basophil% 0.5 % (0-1); Eosinophil# 0.15 X10^3/uL; Eosinophils% 1.8 % (0-5); Mean Corp Hgb Conc 33.3 g/dL (32-36); Mean Corpuscular Hgb 32.5 pg (27.0-32.0); Mean Corpuscular Volume 97.6 fL (80-94); Mean Platelet Vol. 10.2 fl (6.2-12.0); NRBC Flagged by Analyzer 0 % (0-5); Neutrophil # 6.18 X10^3/uL (2.7-7.7); Neutrophil % 75.5 % (47-70); Platelet Count 251 K/mm3 (150-450); RBC Distribution Width CV 13.2 % (11.6-14.6); RBC Distribution Width SD 46.6 fl (35.1-43.9); Red Blood Count 3.38 M/mm3 (4.6-6.2); White Blood Count 8.2 K/mm3 (4.4-11.0)
[2023-05-02 17:53] LABS: AST(SGOT) 14 U/L (15-37); Alanine Aminotransfer ALT/SGPT 23 U/L (16-61); Albumin, Serum 3.4 g/dL (3.2-5.0); Alkaline Phosphatase 69 U/L (45-117); Bilirubin, Direct 0.14 mg/dL (0.00-0.30); Globulin 3.8 g/dL (2.2-4.2); Protein, Total 7.2 g/dL (6.4-8.2)
[2023-05-02 19:26] LABS: Anion Gap 9 (5-15); BUN 33 mg/dL (7-18); BUN/Creat Ratio 24.1 RATIO (10-20); Calcium,Total 9.1 mg/dL (8.5-10.1); Chloride 106 mmol/L (98-107); Creatinine, Serum 1.37 mg/dL (0.70-1.30); EST Glomerular Filtration Rate 54 mL/min (>60); Est Glom Filt Rate - Afr Amer 65 mL/min (>60); Glucose 122 mg/dL (74-106); Potassium 4.4 mmol/L (3.5-5.1); Sodium Level 142 mmol/L (136-145)
[2023-05-02 19:36] LABS: Cholesterol 146 mg/dL (200); High Density Lipoprotein 75 mg/dL; Triglycerides 140 mg/dL; Very Low Density Lipoprotein 28 mg/dL (5-40)
== END | disposition home or self-care (01) ==
LOC: LAB 16:14
PROVIDERS: Nurse Practitioner Acute Care; Nurse Practitioner Gerontology; PCP Family Medicine; Referring Provider Internal Medicine Cardiovascular Disease; Visit Provider Internal Medicine Cardiovascular Disease
DX: I10 Essential (primary) hypertension (principal); D86.0 Sarcoidosis of lung; R06.02 Shortness of breath
CPT/HCPCS: 36415; 80048; 80061; 80076; 85025

== ENCOUNTER → 2023-06-06 | Outpatient (CLI) | payer MEDICARE, SELFPAY ==
[2019-02-03 16:41] VITALS: BMI 29.3
--- NOTE | 2023-06-06 12:58 | CT_ITS ---
We are attempting to reach an attending provider to discuss findings. An addendum with communication details will be sent when the communication is complete. EXAM: CT CHEST WITHOUT INTRAVENOUS CONTRAST CLINICAL INDICATION: Follow up Sarcoid - decreasing DLCO TECHNIQUE: Helically acquired images were obtained of the chest without intravenous contrast. This CT exam was performed using one or more of the following dose reduction techniques: automated exposure control, adjustment of the mA and/or kV according to patient size, and/or use of iterative reconstruction technique. RADIATION DOSE: CTDIvol = 10.52 mGy, DLP = 383.71 mGy-cmContrast: COMPARISON: April 20, 2022, June 04, 2019, April 24, 2021. FINDINGS: LUNGS AND PLEURAL SPACES: Irregular increased rounded masslike soft tissue nodule or mass in the anterior right lower lobe. This was a small thick linear band of suspected scarring in 2019. Possibly inflammatory increasing nodule but indolent or slow-growing neoplasm arising within scar cannot be completely excluded. Bilobed masslike appearance on the current exam, overall size 3 cm AP, 3.3 cm transverse, and 4.1 cm craniocaudal. It was 2.1 cm AP 2.2 cm transverse and 2.7 cm craniocaudal on most recent exam April 20, 2022. With larger lobulated inferior masslike component. No pleural effusion or thickening. No pneumothorax. HEART: Similar appearance of coronary artery stents. Normal heart size. No pericardial effusion. MEDIASTINUM: There is similar appearance of extensive increased bulky soft tissue density in the hilar regions, with numerous coarse mediastinal and hilar calcifications presumably due to calcified lymph nodes, similar bulky soft tissue density extending anteriorly into the right infrahilar region encasing anterior and posterior superior segmental airways, and similar appearance of bulky soft tissue and mild central bronchiectasis involving medial left upper lobe. Mild increased interstitial thickening and patchy nodular opacities in the posterior aspect of the superior segments of the lower lobes compared to 2019. Small hiatal hernia again noted. Esophagus is unremarkable. THYROID: Unremarkable. No thyroid lesions. BONES/JOINTS: Unremarkable. No suspicious lytic or blastic abnormality. VASCULATURE: Normal aortic caliber. KIDNEYS AND URETERS: ABDOMEN: Partially included presumed right kidney cyst of roughly 2 cm, it was at least 2.3 cm but only partially included on prior and current exam. Tiny calcification in the upper pole of the right kidney is newly seen. The pancreas is not fully included. Gallbladder and common duct are not fully included. Normal spleen size. CT/Chest without Contrast IMPRESSION: 1. Increasing size and suspicious increasing lobulated contour of mass in the anterior right lower lobe, especially larger size and nodular appearance along its inferior margin, compared to prior exams, including the most recent exam April 20, 2022. Now larger and bilobed shape. The more proximal mass is contiguous with the complex chronic adenopathy, infiltrative soft tissue density and scarring in the right hilum. 2. There was a small but mildly thick linear scarlike appearance in this location in 2019. Suspicious for adenocarcinoma developing within parenchymal scar in the appropriate clinical setting. Lymphoma also a consideration. 3. Additional evaluation including consideration for biopsy is recommended. With attention to the bilobed most inferior-posterior new nodular component. The increasing nodular component is roughly 1.8 cm x 1.9 cm x 1.7 cm and near the diaphragm, best seen on sagittal and coronal images. The entire bilobed indeterminate mass is over 4 cm. 4. Otherwise similar complex mediastinal and hilar findings. Electronically Signed: Yeimi Carrizales MD at 9:01 EDT ,
[2023-06-06 13:58] VITALS: PULSE 62; PULSE 64; PULSE 65; PULSE 68; PULSE 69; PULSE 70; PULSE 72; O2SAT 95; O2SAT 96; O2SAT 98; O2SAT 99
--- NOTE | 2023-06-07 05:44 | WT_ITS ---
PSN 6 Minute Walk Test 6 Minute Walk Test 6 Minute Walk Test: 6 Minute Walk Test PSN:6-Minute Walk Test Start: 06/06/23 13:58 Freq: Status: Active Protocol: RESP.6MINW Document 06/06/23 13:58 [facility] (Rec: 06/06/23 14:01 [facility] [id number]) 6 Minute Walk Test Date Performed 06/06/23 Time Performed 13:45 Height 5 ft 9 in Weight: 78.018 kg Weight in Pounds 172.[address]: Dr Freeman Assistive device used: None Pre-test Oxygen Delivery Method Room Air Pulse Ox 99 Pulse Rate (60-100) 62 Dyspnea Dhara Scale (0-10) 0 Exertion Dhara Scale (6-20) 6 1st minute Oxygen Delivery Method Room Air Pulse Ox 99 Pulse Rate (60-100) 64 2nd minute Oxygen Delivery Method Room Air Pulse Ox 98 Pulse Rate (60-100) 68 3rd minute Oxygen Delivery Method Room Air Pulse Ox 99 Pulse Rate (60-100) 65 4th minute Oxygen Delivery Method Room Air Pulse Ox 95 Pulse Rate (60-100) 70 5th minute Oxygen Delivery Method Room Air Pulse Ox 98 Pulse Rate (60-100) 72 6th minute Oxygen Delivery Method Room Air Pulse Ox 96 Pulse Rate (60-100) 69 Dyspnea Dhara Scale (0-10) 0 Exertion Dhara Scale (6-20) 11 Post-test Oxygen Delivery Method Room Air Pulse Ox 99 Pulse Rate (60-100) 64 Full Laps Walked 20 Partial Lap, Number of Tiles Walked 10 Total Distance Walked (ft) 1190 Interpretation Interpretation: The patient was able to ambulate 1190 feet over the course of 6 minutes on room air with no assistive devices or breaks. The patient experienced no significant desaturation or tachycardia. These findings are consistent with a normal walking oximetry. Recommendations Recommendations: No supplemental oxygen is indicated at this time.
== END | disposition home or self-care (01) ==
PROVIDERS: PCP Family Medicine; Referring Provider Internal Medicine Critical Care Medicine; Visit Provider Internal Medicine Critical Care Medicine
DX: D86.0 Sarcoidosis of lung (principal)
CPT/HCPCS: 71250; 94618

== ENCOUNTER → 2023-06-18 | Outpatient (CLI) | payer MEDICARE, SELFPAY ==
[2019-02-03 16:41] VITALS: BMI 29.3
--- NOTE | 2023-06-18 09:30 | PET_ITS ---
EXAMINATION: FDG PET/CT INDICATIONS: 77-year-old male with a history of pulmonary nodularity. COMPARISON EXAMINATION: None available INDEX LESION SIZE SUV INTERPRETATION Right lower lung field, right lower lobe 9.7 mm 4.3 Fulfills quantitative criteria for viable neoplasm ? NON-INDEX LESION ? ? ? Additional bilateral hemithorax pulmonary parenchyma, bilateral thoracic perihilum ? 2.4 max Quantitative criteria for viable neoplasm are not fulfilled ? NON-INDEX LESION ? ? ? Left posterolateral chest wall, ninth-tenth ribs ? 4.2 max Most consistent with activated leukocytes consistent with trauma-fracture TECHNIQUE: Following the intravenous administration of 13.74 mCi of F-18 deoxyglucose via the right antecubital fossa, multiplanar image acquisitions of the head, neck, chest, abdomen and pelvis to the level of the midthigh, obtained at one-hour post radiopharmaceutical administration contemporaneously interpreted with the current CT of the chest, abdomen and pelvis dated 06/18/2023 via coregistration reveal: SERUM GLUCOSE LEVEL: 140 mg/dL HEIGHT: 69 inches WEIGHT: 177 pounds FINDINGS: HEAD/NECK: There is no evidence of abnormal increased glucose metabolism in the pharyngeal mucosal space, parapharyngeal space, oropharynx, bilateral-lateral and anterior neck, hypopharynx and distribution of the larynx. The visualized portion of the cerebral cortical-subcortical structures demonstrate symmetric and preserved glucose metabolism. CHEST: Increased FDG concentration is defined in the right mid posterior lung zone, superior segment of the right lower lobe. The calculated maximum standard uptake value is 4.3. The maximum axial diameter of the corresponding parenchymal density is .7 mm. Additional increased radiopharmaceutical concentration is manifest in the bilateral hemithorax pulmonary parenchyma, right-left thoracic perihilum. The calculated maximum standard uptake value is 2.4. Quantitative criteria for viable neoplasm are not fulfilled. There is visualized radiopharmaceutical concentration noted in the left ventricular myocardium, consistent with the fed state. CT of the chest demonstrates the following anatomic characteristics: Atherosclerotic calcification is defined in the thoracic aorta without evidence of dilatation, aneurysm formation. Coronary arterial calcification is observed. Subcentimeter bilateral axillary soft tissue is ametabolic. Calcified mediastinal and thoracic perihilar soft tissue bilaterally is nonglucose avid. ABDOMEN/PELVIS: Normal physiologic distribution of the radiopharmaceutical is identified in the hepatic and splenic parenchyma, both renal units, urinary bladder, and visualized intestinal tract. Diffuse intestinal tract is identified in all four quadrants of the abdomen and pelvis. CT of the abdomen and pelvis is remarkable for the following: Cyst formation is defined in the bilateral kidneys. Atherosclerotic calcification is defined in the abdominal aorta without evidence of dilatation, aneurysm formation. Abdominal-pelvic arterial calcification is observed. A fat-containing left inguinal hernia is encountered. Calcification is noted within base of the prostate gland bilaterally peripheral zone and a prominent-sized prostate gland. Right and left inguinal soft tissue densities are ametabolic. SKELETAL: Increased uptake is noted in the left posterolateral chest wall, night-tenth ribs, generating a calculated standard uptake value of 4.2. PET/PET/CT Tumor Base -Thigh Init IMPRESSION: 1. The increase in radiopharmaceutical concentration defined in the superior segment of the right lower lobe fulfills quantitative criteria for viable neoplasm with single-point technique. Histopathologic analysis is recommended. 2. Additional increased radiopharmaceutical concentration noted in the bilateral thoracic perihilum and right-left lung mckeon do not fulfill quantitative criteria for malignant transformation. 3. Enhanced tracer uptake noted in the ninth and tenth ribs along the left posterolateral chest wall (linear in presentation along the longitudinal plane) are most consistent with trauma-fracture. (Yin et al, [employer]opor[employer] International 13:755, 2002). Electronic Signature Clovis Jara D.O. Accurate Quantification of SUVs for this report are calculated using the exclusive [employer] Technology. (U.S. Patent No. [phone] B2 [phone] [place] patent [phone]). Standardization and correction of the FDG SUV metric via [employer] technology allow for vendor non-specific objective quantitative examination comparison and optimization of the sensitivity and specificity of the FDG PET-CT examination. . Electronically Signed: Clovis Jara, at 22:54 EDT ,
== END | disposition home or self-care (01) ==
PROVIDERS: PCP Family Medicine; Referring Provider Nurse Practitioner Acute Care; Visit Provider Nurse Practitioner Acute Care
DX: R91.8 Other nonspecific abnormal finding of lung field (principal)
CPT/HCPCS: 78815; A9552

== ENCOUNTER → 2023-06-25 | Outpatient (CLI) | payer MEDICARE, SELFPAY ==
[2019-02-03 16:41] VITALS: BMI 29.3
[2023-06-25 12:05] LABS: Platelet Count 225 K/mm3 (150-450)
[2023-06-25 12:21] LABS: Prothrombin Time (Protime)PT. 13.3 SECONDS (11.7-14.9)
[2023-06-25 12:34] LABS: Partial Thromboplast Time 25.8 Seconds (24.1-36.2)
== END | disposition home or self-care (01) ==
LOC: PAVLAB 11:42
PROVIDERS: PCP Family Medicine; Referring Provider Nurse Practitioner Acute Care; Visit Provider Nurse Practitioner Acute Care
DX: R06.02 Shortness of breath (principal); I48.91 Unspecified atrial fibrillation
CPT/HCPCS: 36415; 85049; 85610; 85730

== ENCOUNTER → 2023-07-04 | Outpatient (CLI) | payer MEDICARE, SELFPAY ==
[2019-02-03 16:41] VITALS: BMI 29.3
--- NOTE | 2023-07-04 08:01 | CT_ITS ---
STUDY: CT CHEST WITHOUT CONTRAST REASON FOR EXAM: Male, 77 years old. Shortness of breath. Patient was scheduled for biopsy of a right lower lobe nodule. RADIATION DOSAGE (If Supplied By Facility): CTDIvol = ( 12.53 ) mGy, DLP = ( 273.44 ) mGycm TECHNIQUE: Transaxial imaging was performed without the administration of intravenous contrast material. Individualized dose optimization techniques were used for this CT. COMPARISON: Comparison is made with prior examination dated June 06, 2023. FINDINGS: CHEST The peripheral nodule in the posterior aspect of the right lower lobe is not seen at this time. Routine follow-up recommended. CT/Limited or Localized F/U CT IMPRESSION: The nodular density seen on the PET scan is not visualized on the examination. Electronically Signed: Jered Parrish MD at 13:30 EDT ,
[2023-07-04 08:24] VITALS: BP 140/61; PULSE 54; RESP 17; TEMP 36.7; O2SAT 100
[2023-07-04 08:26] VITALS: BP 140/61; PULSE 54; RESP 20; TEMP 36.7; O2SAT 100; BMI 26.1
[2023-07-04 09:08] VITALS: BP 102/39; BP 109/29; BP 138/36; PULSE 55; PULSE 59; RESP 14; RESP 15; RESP 18; O2SAT 100; O2SAT 99
== END | disposition home or self-care (01) ==
PROVIDERS: PCP Family Medicine; Referring Provider Nurse Practitioner Acute Care; Visit Provider Nurse Practitioner Acute Care
DX: R06.02 Shortness of breath (principal)
CPT/HCPCS: 76380; J7050; A4216

== ENCOUNTER → 2023-09-20 | Outpatient (CLI) | payer MEDICARE, SELFPAY ==
[2019-02-03 16:41] VITALS: BMI 29.3
== END | disposition home or self-care (01) ==
LOC: LAB 06:04
PROVIDERS: PCP Family Medicine; Referring Provider Nurse Practitioner Acute Care; Visit Provider Nurse Practitioner Acute Care
DX: J44.9 Chronic obstructive pulmonary disease, unspecified (principal)
CPT/HCPCS: 87070; 87077; 87107; 87205

== ENCOUNTER → 2023-10-25 | Outpatient (CLI) | payer MEDICARE, SELFPAY ==
[2019-02-03 16:41] VITALS: BMI 29.3
--- NOTE | 2023-10-25 15:46 | CT_ITS ---
INDICATION: Follow-up lung mass EXAMINATION: CT CHEST WITHOUT CONTRAST - CT Chest W/O Contrast Injection TECHNIQUE: Helically acquired images were obtained of the chest. A radiation dose optimization technique was used for this scan. IV Contrast dosage and agent: None. RADIATION DOSAGE (If Supplied By Facility): CTDIvol = ( 11.05 ) mGy, DLP = ( 414.02 ) mGycm COMPARISON: June 06, 2023 FINDINGS: LUNGS, PLEURA AND LARGE AIRWAYS: Masslike irregular spiculated density in the right perihilar region is estimated at 7.4 x 3.3 x 3.4 cm. Relatively stable parenchymal scarring Left suprahilar irregular spiculated masslike density is noted measuring approximately 5 x 4.2 x 2.6 cm. No pneumothorax. THYROID: No thyroid lesions. HEART AND PERICARDIUM: Heart size is normal. No pericardial effusion. CORONARY ARTERIES: Coronary artery calcifications are noted VESSELS: Thoracic aorta is not dilated. MEDIASTINUM AND JOSE: There are mediastinal or hilar calcifications. Esophagus is unremarkable. No hiatal hernia. UPPER ABDOMEN: Distended stomach with retained gastric contents. Right renal cyst. BONES: No suspicious lytic or blastic abnormality. CT/Chest without Contrast IMPRESSION: Relatively stable irregular masses as noted similar to previous study. Electronically Signed: Noah Del Valle DO at 20:49 EST Reading Location ID and State: [facility] / [place] Tel [phone], Service support ,
== END | disposition home or self-care (01) ==
PROVIDERS: PCP Family Medicine; Referring Provider Nurse Practitioner Acute Care; Visit Provider Nurse Practitioner Acute Care
DX: R91.8 Other nonspecific abnormal finding of lung field (principal)
CPT/HCPCS: 71250

== ENCOUNTER → 2023-12-12 | Outpatient (CLI) | payer MEDICARE, SELFPAY ==
[2019-02-03 16:41] VITALS: BMI 29.3
[2023-12-12 16:41] LABS: Hematocrit 31.9 % (40-54); Hemoglobin 10.6 g/dL (13.0-16.5); Mean Corp Hgb Conc 33.2 g/dL (32-36); Mean Corpuscular Hgb 31.9 pg (27.0-32.0); Mean Corpuscular Volume 96.1 fL (80-94); Platelet Count 271 K/mm3 (150-450); RBC Distribution Width CV 13.2 % (11.6-14.6); RBC Distribution Width SD 45.9 fl (35.1-43.9); Red Blood Count 3.32 M/mm3 (4.6-6.2); White Blood Count 6.5 K/mm3 (4.4-11.0)
[2023-12-12 17:26] LABS: AST(SGOT) 16 U/L (15-37); Alanine Aminotransfer ALT/SGPT 27 U/L (16-61); Albumin, Serum 3.3 g/dL (3.2-5.0); Alkaline Phosphatase 69 U/L (45-117); Bilirubin, Direct 0.18 mg/dL (0.00-0.30); Globulin 3.7 g/dL (2.2-4.2); PSA,Total- Diagnostic 5.37 ng/mL (0.0-4.0)
== END | disposition home or self-care (01) ==
LOC: LAB 15:52
PROVIDERS: Internal Medicine Critical Care Medicine; PCP Family Medicine; Referring Provider Urology; Visit Provider Urology
DX: R97.20 Elevated prostate specific antigen [PSA] (principal); D86.0 Sarcoidosis of lung; R06.02 Shortness of breath; Z79.899 Other long term (current) drug therapy
CPT/HCPCS: 36415; 80076; 84153; 85027

== ENCOUNTER → 2024-08-05 | Outpatient (CLI) | payer MEDICARE, SELFPAY ==
[2019-02-03 16:41] VITALS: BMI 29.3
--- NOTE | 2024-08-05 12:50 | CT_ITS ---
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 TECHNIQUE: Helically acquired images were obtained of the chest without intravenous contrast. This CT exam was performed using one or more of the following dose reduction techniques: automated exposure control, adjustment of the mA and/or kV according to patient size, and/or use of iterative reconstruction technique. RADIATION DOSE: CTDIvol = 9.98 mGy, DLP = 366.51 mGy-cm COMPARISON: CT chest without contrast 10/25/2023. FINDINGS: LUNGS AND PLEURAL SPACES: Masslike irregular density with spiculated borders extending from the right perihilar region with a long irregular tail extending to the right posterior chest wall. Partial chronic atelectases in the anterior medial segment of the left upper lobe with groundglass opacities. Similar peribronchial vascular mass and/or scarring causing elevation of left hilum with irregular linear thickening of the fascia extending to the left anterior and posterior upper chest wall. All these are secondary to sarcoidosis. No pleural effusion or thickening. No pneumothorax. HEART: Mild left pericardial effusion and minimal right anterior pericardial effusion without significant change. Normal cardiac size. Heart size is normal. No significant coronary artery calcifications. MEDIASTINUM: Unremarkable. No mediastinal or hilar adenopathy. Esophagus is unremarkable. No hiatal hernia. THYROID: Unremarkable. No thyroid lesions. BONES/JOINTS: Unremarkable. No suspicious lytic or blastic abnormality. VASCULATURE: Unremarkable. Thoracic aorta is non-dilated. LYMPH NODES: Prominent calcified nodes in both willie, anterior paratracheal space, adjacent the left transverse thoracic aorta and anterior carinal space. KIDNEYS AND URETERS: 2.4 cm low-attenuation cyst in the right anterior renal parenchyma with CT number of 8.79 Hounsfield units. No hydronephrosis in both kidneys.. CT/Chest without Contrast IMPRESSION: 1. No acute cardiopulmonary pathology. 2. Masslike irregular densities with spiculated borders in both perihilar regions. They have associated irregular thickening of the edema of the fissures extending to the chest macedo in addition to chronic atelectases in the medial aspect of the anterior segment of the left upper lobe. Additionally, multiple calcified nodes in both willie, the anterior paratracheal space, adjacent the left transverse thoracic aorta and anterior carinal space. 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 3. 2.4 cm low-attenuation lesion in the right anterior renal parenchyma with CT number of 8.79 Hounsfield units is cyst. ACR White Paper guidelines (Herts, et al. JACR 2018; 15(2):264-273) suggest no follow-up is necessary. 4. Moderate pericardial effusion is unchanged. 5. No significant interval change when compared to 10/30/2023. Electronically Signed: John Mathias MD at 15:46 EDT ,
== END | disposition home or self-care (01) ==
LOC: PSN 12:50
PROVIDERS: PCP Family Medicine; Referring Provider Nurse Practitioner Acute Care; Visit Provider Nurse Practitioner Acute Care
DX: R91.8 Other nonspecific abnormal finding of lung field (principal); R06.02 Shortness of breath
CPT/HCPCS: 71250; 94060; 94726; 94729

== ENCOUNTER → 2024-10-06 | Outpatient (CLI) | payer MEDICARE, SELFPAY ==
[2019-02-03 16:41] VITALS: BMI 29.3
== END | disposition home or self-care (01) ==
PROVIDERS: PCP Family Medicine; Referring Provider Nurse Practitioner Family; Visit Provider Nurse Practitioner Family
DX: R91.8 Other nonspecific abnormal finding of lung field (principal)
CPT/HCPCS: 78815; A9552

== ENCOUNTER → 2024-11-05 | Outpatient (CLI) | payer MEDICARE, SELFPAY ==
[2019-02-03 16:41] VITALS: BMI 29.3
[2024-11-05] VITALS (17 sets, daily range): BP systolic 98–170; BP diastolic 53–88; PULSE 56–64; RESP 17–22; TEMP 36.7; O2SAT 96–100; BMI 25.8
--- NOTE | 2024-11-05 | IMM_PTH ---
PATIENT: ROJELIO WARD LOC: CT U#:[id number] AGE/SX: 79/M ROOM: RE11/05/[address]: Swati Baltazar NP-C : 1945 BED: DIS: 11/05/2024 SPEC #: [id number] RECD: 11/06/24 10:40 STATUS: SOUButch REQ #: [id number] YOSSI: 11/05/24 00:[address]: Swati Baltazar DEPT: IMMUNOHISTOCHEMISTRY RECD BY: Haroon Garg ENTERED: 11/06/24 10:41 SP TYPE: IMMUNO OTHR DR: Dr. Kel Nieto MD Tissues: Lung, NOS Procedures: CD20 (add) CD45 (add) CD5 (add) CD79A (add) CD3 (initial) PHYSICIAN & INSTITUTION [place] [id number] SPECIMEN INFORMATION: Tissue Source: Right lung biopsy Clinical Info: PET avid lesion Specimen Number: [id number] CPT code: [id number] METHODOLOGY: Deparaffinized sections of prefer/formalin-fixed tissue or PAP/DQ stained slides are incubated with monoclonal/polyclonal antibodies/oligonucleotide probes. Localization is made via biotin free immunoperoxidase method. Appropriate controls are performed and reacted as expected. Results on target cell population are indicated in the following table: RESULTS: ANTIBODY / CLONE RESULT CD3 (PS1) positive CD5 (SP10) positive CD20 (L26) positive CD45 (RP2/18) positive CD79a (11E3) positive These tests were developed and their performance characteristics determined by [facility]. They may not have been cleared or approved by the U.S. Food and Drug Administration. The FDA has determined that such clearance or approval is not necessary. The above immunohistochemical/dualISH markers are ordered and reviewed by the Pathologist. INTERPRETATION: Right lung lesion, biopsy: Scant fragments of lung with scant reactive lymphoplasmacytic infiltrate. See comment. COMMENT: This specimen was sent to [facility] and reviewed by Dr. Conrad and above diagnosis is rendered. 11/06/2024
[2024-11-05 08:57] LABS: Absolute Lymphocyte Count 0.84 X10^3/uL (0.83-4.51); Absolute Neutrophil Count 5.3 X10^3/uL (2.0-7.7); Basophil# 0.06 X10^3/uL; Basophil% 0.8 % (0-1); Eosinophil# 0.29 X10^3/uL; Eosinophils% 3.9 % (0-5); Hematocrit 35.1 % (40-54); Hemoglobin 11.5 g/dL (13.0-16.5); Lymphocyte # 0.84 X10^3/ul (0.83-4.51); Lymphocyte % 11.4 % (19-41); Mean Corp Hgb Conc 32.8 g/dL (32-36); Mean Corpuscular Hgb 32.4 pg (27.0-32.0); Mean Corpuscular Volume 98.9 fL (80-94); Mean Platelet Vol. 9.5 fl (6.2-12.0); Monocyte# 0.91 X10^3/uL; Monocyte% 12.3 % (0-10); NRBC Flagged by Analyzer 0 % (0-5); Neutrophil # 5.26 X10^3/uL (2.7-7.7); Neutrophil % 71.1 % (47-70); Platelet Count 225 K/mm3 (150-450); RBC Distribution Width CV 13.1 % (11.6-14.6); RBC Distribution Width SD 46.9 fl (35.1-43.9); Red Blood Count 3.55 M/mm3 (4.6-6.2); White Blood Count 7.4 K/mm3 (4.4-11.0)
[2024-11-05 09:17] LABS: Partial Thromboplast Time 26.1 Seconds (24.1-36.2); Prothrombin Time (Protime)PT. 13.1 SECONDS (11.7-14.9)
[2024-11-05 09:18] LABS: Albumin, Serum 3.5 g/dL (3.2-5.0); BUN 25 mg/dL (7-18); BUN/Creat Ratio 21.7 RATIO (10-20); Bilirubin, Direct 0.19 mg/dL (0.00-0.30); Calcium,Total 9.6 mg/dL (8.5-10.1); Chloride 106 mmol/L (98-107); Creatinine, Serum 1.15 mg/dL (0.70-1.30); EST Glomerular Filtration Rate 65 mL/min (>60); Est Glom Filt Rate - Afr Amer 79 mL/min (>60); Glucose 191 mg/dL (74-106); Phosphorus 2.6 mg/dL (2.5-4.9); Potassium 4.3 mmol/L (3.5-5.1); Sodium Level 141 mmol/L (136-145)
[2024-11-05] MEDS: 0.9% Saline Lock 10 ML Syringe IV (09:34)
[2024-11-05] MEDS: Midazolam 2 MG/2 ML Syringe IV (10:22)
[2024-11-05] MEDS: fentaNYL 100 MCG/2 ML Ampul IV (10:23)
[2024-11-05] MEDS: Lidocaine 2% (20 ml mdv) 20 ML Vial INFILT (10:35)
--- NOTE | 2024-11-05 10:45 | RAD_ITS ---
INDICATION: post lung biopsy -- Immediately post lung biopsy EXAMINATION/TECHNIQUE: X-RAY - XR Chest 2 Views COMPARISON: CT scan of the chest of 08/05/2024. FINDINGS: LINES/DEVICES: None. LUNGS: Early right hilum and right lower lung density/mass likely corresponding to the CT scan abnormality. Dictated or mass superior to the left hilum likely corresponding to the CT abnormality. MEDIASTINUM AND CARDIOVASCULAR STRUCTURES: Cardiac silhouette not enlarged. Central airways and mediastinal contour are unremarkable. BONES AND SOFT TISSUES: Unremarkable. RAD/Chest Insp/Exp 2 View IMPRESSION: Bilateral opacities as described above likely corresponding to the CT abnormality. No new infiltrate is seen. Electronically Signed: Fausto Spears MD at 11:43 EST ,
--- NOTE | 2024-11-05 10:45 | ASPIGT_PTH ---
PATIENT: ROJELIO WARD LOC: CT U#:[id number] AGE/SX: 79/M ROOM: RE11/05/[address]: Swati Baltazar NP-C : 1945 BED: DIS: 11/05/2024 SPEC #: [id number] RECD: 11/05/24 11:25 STATUS: SRUTHI REAleksandr #: [id number] YOSSI: 11/05/24 10:[address]: Swati Baltazar DEPT: SURGICAL PATHOLOGY RECD BY: Emma Figueroa ENTERED: 11/05/24 11:25 SP TYPE: ASP RAD OTHR DR: Dr. Kel Nieto MD Tissues: Lung, NOS Procedures: FNA Specimen Adequacy Special Stain Group II Surgery Specimen Level IV Imprint (control) HEADER OPERATION: Right lung biopsy PRE-OP DIAGNOSIS: PET avid lesion TISSUE SUBMITTED: 20 gauge x 5 cores MICROSCOPIC DIAGNOSIS Right lung lesion, CT guided core biopsy: Scant fragment of lung with scant reactive lymphoplasmacytic infiltrate. No immunomorphological evidence of lymphoma or plasma cell neoplasm in this material. See comment. mr 11/10/2024 COMMENT The specimen is evaluated at the time of biopsy by Dr. Singletary. Immediate Evaluation = Negative for malignant cells. Reported to Kisha Starr at 10:53am on 11/05/2024. The specimen is sent to [facility] for expert opinion, reviewed by Dr. Conrad and the above diagnosis is rendered. The complete report is viewable in the patient's EMR. Immunohistochemistry ([id number]) supports the above diagnosis. Correlation with clinical, radiologic findings and appropriate follow up are necessary. MICROSCOPIC DESCRIPTION Slides are reviewed. GROSS DESCRIPTION Received is one container labeled with the patient's name and not further designated. The specimen consists of multiple irregular fragments of light mg soft tissue that in aggregate measure 0.8 x 0.1 x 0.1 cm. The specimen is totally submitted in one cassette. Two touch imprints are prepared at the time of core biopsy. 11/05/2024 TC:5 [facility]:[id number] ADDENDUM ADDENDUM ADDENDUM ADDENDUM ADDENDUM ADDENDUM ADDENDUM ADDENDUM ADDENDUM ADDENDUM ADDENDUM ADDENDUM 12/17/2024 10:40 ADDENDUM 12/17/2024 10:40 ADDENDUM 12/17/2024 10:40 ADDENDUM 12/17/2024 10:40 ADDENDUM 12/17/2024 10:40 This addendum is added to incorporate an outside pathology consultation report. The case was examined at [facility] (#[id number]) and the following diagnosis was rendered. A. Right lung lesion, CT guided core biopsy: Cores of benign lung tissue with hyalinized fibrous scarring. Chronic lymphoplasmatic inflammation and occasional eosinophils. Rare epithelioid cells, favor minute meningothelioid nodules (MMN), incidental. Please see complete above mentioned consultation report in EMR
--- NOTE | 2024-11-05 10:55 | PCM.OPRPT ---
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 Nodule in the right mid posterior medial hemithorax. PROVIDER: MARIA ESTHER Avila CONSENT: Written informed consent was obtained having explained the risks, benefits and alternatives in detail with the patient who accepted the risks and agreed to proceed. Laboratory review and clinical assessment was performed. PRE-PROCEDURE SEDATION ASSESSMENT: Current history and physical dictated by referring physician and reviewed. No clinical changes since date of exam. Patient has a Mallampati Score of Class 1 and ASA Class of 3. PROCEDURAL SEDATION PROTOCOL: The Drugs used were: 2 mg Versed, IV, and 20 mcg Fentanyl, IV. The sedation time was: 21 minutes, starting at 1022 and terminated at 1043 The procedural sedation protocol was independently monitored by the department nurse. RADIATION DOSAGE (Supplied By Facility): CTDIvol = 17.98 mGy, DLP = 793.42 mGycm Individualized dose optimization techniques were used for this CT. TECHNIQUE: The patient was placed in a prone position. A noncontrast CT was performed to localize the lesion in the right mid posterior lung. The skin surface was prepped with chlorhexidine and draped in a sterile fashion. 2% lidocaine was used for local anesthesia. Using CT guidance, a 20-gauge coaxial biopsy device was advanced to the periphery of the lesion. A total of 5 core specimens were obtained. Specimens were microscopically reviewed by pathology in the CT suite and placed in formalin solution. BioSentry tract sealant system was deployed at the biopsy site, and the biopsy needle was removed. A sterile occlusive dressing was applied to the biopsy site. The patient tolerated the procedure well. An immediate chest xray was ordered, per protocol. A negative biopsy does not exclude malignancy. Further imaging or clinical followup based on patient condition and degree of clinical suspicion for malignancy. Suggest rebiopsy, if biopsy results do not match with clinical scenario. IMPRESSION: CT directed core needle biopsy of right mid posterior lung nodule using CT image guidance with image documentation as described. Pathology results are pending. Procedural Sedation protocol utilized with independent monitoring by the department nurse. Surgical Findings: 5 cores Complications Complications: No
--- NOTE | 2024-11-05 12:48 | RAD_ITS ---
INDICATION: post lung biopsy -- 2 hours post lung biopsy EXAMINATION/TECHNIQUE: X-RAY - XR Chest 2 Views COMPARISON: Previous of the same date done earlier FINDINGS: LINES/DEVICES: None. LUNGS: Bilateral opacities are again seen. No evidence of pneumothorax. MEDIASTINUM AND CARDIOVASCULAR STRUCTURES: Stable cardiomediastinal silhouette. BONES AND SOFT TISSUES: Unremarkable. RAD/Chest Insp/Exp 2 View IMPRESSION: No evidence of pneumothorax. Electronically Signed: Fausto Spears MD at 13:44 EST ,
[2024-11-05 14:00] LABS: CREATININE FINGERSTICK < 1.0 mg/dL (0.70-1.30); EGFR FINGERSTICK > 60.0000 mL/min (>60)
== END | disposition home or self-care (01) ==
LOC: CT 08:40
PROVIDERS: PCP Family Medicine; Referring Provider Nurse Practitioner Family; Visit Provider Nurse Practitioner Family
DX: R91.1 Solitary pulmonary nodule (principal); R06.02 Shortness of breath
CPT/HCPCS: 32408; 36415; 71046; 77012; 80069; 82248; 85025; 85610; 85730; 88172; 88305; 88313; 88341; 88342; 99156; A4216; C2613

== ENCOUNTER → 2024-12-31 | Outpatient (CLI) | payer MEDICARE, SELFPAY ==
[2019-02-03 16:41] VITALS: BMI 29.3
== END | disposition home or self-care (01) ==
LOC: LAB 09:45
PROVIDERS: PCP Family Medicine; Referring Provider Urology; Visit Provider Urology
DX: N40.1 Benign prostatic hyperplasia with lower urinary tract symptoms (principal)
CPT/HCPCS: 36415; 84153

== ENCOUNTER → 2025-01-14 | Outpatient (CLI) | payer MEDICARE, SELFPAY ==
[2019-02-03 16:41] VITALS: BMI 29.3
--- NOTE | 2025-01-14 07:49 | ECHOD_ITS ---
Reason For Study Reason For Study: SOB Procedure This was a 2D Doppler, Color Flow transthoracic echocardiogram. Exam performed in department. Left Ventricle Normal LV size. The estimated ejection fraction is 60 %. Diastolic function is indeterminate. [place] : Hypokinetic. Right Ventricle Normal RV size. Normal systolic function. Atria The left and right atria are normal. No doppler evidence for ASD. Mitral Valve There is no mitral valve stenosis. Trivial mitral valve insufficiency. Tricuspid Valve There is no tricuspid stenosis. Trivial tricuspid valve insufficiency. Pulmonary artery systolic pressure is 35 mmHg. Aortic Valve There is no aortic stenosis. Trivial aortic valve insufficiency. Pulmonic Valve There is no pulmonic valvular stenosis. Trivial pulmonic valve insufficiency. Great Vessels Normal sized aortic root. Pericardium/Pleural No pericardial effusion. MMode/2D Measurements & Calculations LVIDd: 5.2 cm IVSd: 1.1 cm LVOT diam: 2.0 cm LVIDs: 3.5 cm LVPWd: 0.98 cm LVOT area: 3.1 cm2 RVDd: 4.2 cm FS: 31.5 % Ao root diam: 3.4 cm LAV(MOD-bp): 59.0 ml LVAd ap4: 38.1 cm2 LAV(MOD-bp) Indexed: 30.3 ml/m2 LVLd ap4: 9.0 cm LAV(MOD-sp2): 55.6 ml EDV(MOD-sp4): 132.5 ml LAV(MOD-sp4): 60.4 ml EDV(sp4-el): 136.3 ml LVAs ap4: 21.9 cm2 LVLs ap4: 8.0 cm ESV(MOD-sp4): 49.0 ml ESV(sp4-el): 50.7 ml EF(MOD-sp4): 63.0 % EF(sp4-el): 62.8 % SV(MOD-sp4): 83.4 ml SV(sp4-el): 85.5 ml LA A4 area: 20.5 cm2 SI(MOD-sp4): 42.7 ml/m2 LA dimension(2D): 4.5 cm RA A4 area: 20.3 cm2 Time Measurements MV dec time: 0.26 sec Doppler Measurements & Calculations MV E max andrew: 77.5 cm/sec Lat Peak E' Andrew: 6.0 cm/sec Med Peak E' Andrew: 7.0 cm/sec MV A max andrew: 78.8 cm/sec E/E' lat: 12.9 E/E' med: 11.1 MV E/A: 0.98 MV V2 max: 90.0 cm/sec Ao V2 max: 146.4 cm/sec MV max P.2 mmHg MV dec slope: 297.4 cm/sec2 Ao max P.6 mmHg MV V2 mean: 55.2 cm/sec Ao V2 mean: 93.0 cm/sec MV mean P.4 mmHg Ao mean P.1 mmHg MV V2 VTI: 50.2 cm Ao V2 VTI: 36.6 cm AV (velocity ratio): 0.77 MVA(VTI): 1.7 cm2 ASHLI(I,D): 2.4 cm2 ASHLI(V,D): 2.4 cm2 AI max andrew: 336.7 cm/sec LV V1 max: 112.1 cm/sec SV(LVOT): 87.6 ml AI max P.4 mmHg LV V1 max P.0 mmHg LV V1 mean P.5 mmHg AI dec slope: 129.3 cm/sec2 LV V1 mean: 71.3 cm/sec AI P1/2t: 762.7 msec LV V1 VTI: 28.1 cm PA V2 max: 93.4 cm/sec TR max andrew: 298.4 cm/sec PA V2 mean: 62.9 cm/sec TR max P.6 mmHg ECHO/Echo Complete Interpretation Summary The estimated ejection fraction is 60 %. [place] : Hypokinetic. Trivial mitral valve insufficiency. Trivial aortic valve insufficiency. Ordering Physician: Swati Baltazar Referring Physician: Swati Baltazar Performed By: Pam Devries RCS
== END | disposition home or self-care (01) ==
LOC: CVS 07:48
PROVIDERS: PCP Family Medicine; Referring Provider Nurse Practitioner Family; Visit Provider Nurse Practitioner Family
DX: R06.02 Shortness of breath (principal)
CPT/HCPCS: 93306

== ENCOUNTER → 2025-04-22 | Outpatient (CLI) | payer MEDICARE, SELFPAY ==
[2019-02-03 16:41] VITALS: BMI 29.3
--- NOTE | 2025-04-22 17:46 | CT_ITS ---
PROCEDURE: CHEST WITHOUT CONTRAST 04/22/2025 REASON FOR EXAM: PERIHILAR MASS TECHNIQUE: Chest CT without contrast. Coronal and Sagittal reconstruction series were provided. One or more dose reduction techniques were used (e.g., Automated exposure control, adjustment of the mA and/or kV according to patient size, use of iterative reconstruction technique RADIATION DOSE SUMMARY: CTDlvol: 11.40 mGy DLP: 427.31 mGycm COMPARISON: Chest radiograph November 05, 2019 CT chest August 05, 2024, FINDINGS: Hardware: None. Lymph nodes: Multiple enlarged mediastinal and hilar lymph nodes with dense chunky calcifications Heart and Vasculature: Extensive coronary artery calcifications are present. Heart size is within normal limits Lungs and Airways: Scattered partly calcified large pulmonary masses including right and left hilar perihilar lesions. Extensive mediastinal and hilar calcified lymph nodes. Consider etiologies such as sarcoidosis, infectious granulomatous disease, and less likely treated metastatic disease. Correlate with clinical history. Comparison is made with the PET-CT of October 07, 2024. Large perihilar and pulmonary lesions were identified on the CT portion of the PET-CT, but predominantly showed no tracer uptake suggesting chronic benign process. Pleura: Unremarkable. No pleural effusions. Upper Abdomen: No acute process upper abdomen. Several right renal cysts. Bones: No aggressive bone lesions. CT/Chest without Contrast IMPRESSION: Coronary artery calcification (CAC) is moderately pronounced Multiple lung and perihilar masses, many which are partially calcified and appe ar chronic and stable since October 06, 2024 PET-CT. The stability of the lesions in the lack of PET tracer uptake favors h ealed granulomatous process. Reading Location: [facility]
== END | disposition home or self-care (01) ==
LOC: CT 17:45
PROVIDERS: PCP Family Medicine; Referring Provider Nurse Practitioner Family; Visit Provider Nurse Practitioner Family
DX: R91.1 Solitary pulmonary nodule (principal)
CPT/HCPCS: 71250

== ENCOUNTER → 2025-07-08 | Outpatient (CLI) | payer MEDICARE, SELFPAY ==
[2019-02-03 16:41] VITALS: BMI 29.3
== END | disposition home or self-care (01) ==
LOC: PSN 12:49
PROVIDERS: PCP Family Medicine; Referring Provider Nurse Practitioner Family; Visit Provider Nurse Practitioner Family
DX: D86.0 Sarcoidosis of lung (principal)
CPT/HCPCS: 94060; 94726; 94729

== ENCOUNTER → 2025-10-08 | Outpatient (CLI) | payer MEDICARE, SELFPAY ==
[2019-02-03 16:41] VITALS: BMI 29.3
--- NOTE | 2025-10-08 17:09 | CT_ITS ---
PROCEDURE: CT chest without contrast. 10/08/2025 REASON FOR EXAM: SARCOIDOSIS, ON METHOTREXATE, SHORTNESS OF BREATH TECHNIQUE: Chest CT without contrast. Coronal and Sagittal reconstruction series were provided. One or more dose reduction techniques were used (e.g., Automated exposure control, adjustment of the mA and/or kV according to patient size, use of iterative reconstruction technique RADIATION DOSE SUMMARY: CTDlvol: 9.84 mGy DLP: 395.92 mGycm COMPARISON: CT chest without contrast, 04/22/2025. FINDINGS: Lower neck:The thyroid gland is normal. There is no supraclavicular lymphadenopathy. Mediastinum:There are multiple enlarged calcified mediastinal and bilateral hilar lymph nodes. Heart and Aorta:The heart size is normal. There is a small pericardial effusion. There is calcific vascular disease of the coronary arteries most severe at the LAD. There are multiple coronary stents present. There is mild calcific vascular disease of the thoracic aorta. Esophagus:There is a small hiatal hernia. Upper Abdomen:There is calcific vascular disease of the abdominal aorta. There is a 2.6 cm in diameter cyst in the interpolar cortex of the right kidney. The average density of the cyst is 9 HU consistent with a benign cyst, however, the cysts contains mural calcifications, consistent with a Bosniak 2 cyst. No follow-up of the cyst is required. There is an incompletely imaged peripelvic cyst in the left kidney measuring at least 4.2 cm in diameter. Chest wall:The soft tissues of the chest wall appear unremarkable. There is no axillary lymphadenopathy. There are no significant bony abnormalities of the chest. Lungs, airways and pleura: There is a stable area of cicatricial atelectasis in the left lung, which extends from the hilum into the apex. There is a stable area of atelectasis in the lower lobe of the right lung, extending from the apex of the superior segment, to the hilum. There are no new pulmonary nodules or areas of pulmonary parenchymal opacity. There are no pleural effusions. CT/Chest without Contrast IMPRESSION: 1. Multiple enlarged calcified hilar and mediastinal lymph nodes consistent wi th sarcoidosis. 2. Stable atelectasis in the upper lobe of the left lung and lower lobe of the right lung. 3. Significant atherosclerotic disease of the coronary arteries. 4. Other findings as noted, not significantly changed. Reading Location: [id number]
== END | disposition home or self-care (01) ==
PROVIDERS: PCP Family Medicine; Referring Provider Nurse Practitioner Family; Visit Provider Nurse Practitioner Family
DX: R91.8 Other nonspecific abnormal finding of lung field (principal)
CPT/HCPCS: 71250